=== PATIENT | male | born 1965 | race Caucasian/White ===

== ENCOUNTER 2021-11-08 12:54 | Emergency (ER) | payer MEDICARE, SELFPAY ==
[2021-11-08 12:59] VITALS: BP 156/90; PULSE 89; RESP 12; TEMP 37.2; O2SAT 97; BMI 28.8
--- NOTE | 2021-11-08 13:08 | RAD_ITS ---
STUDY: X-RAY CHEST REASON FOR EXAM: Male, 56 years old. Dizziness TECHNIQUE: Single AP portable view of the chest. COMPARISON: None. FINDINGS: EKG electrodes are seen. The lungs are clear and expanded. There is no demonstrated pleural abnormality. Sternal cerclage wires and vascular clips are present from a prior sternotomy and coronary artery bypass graft procedure (CABG). Normal mediastinum and sunny. Normal visualized pulmonary arteries. There is atherosclerotic calcification of the aortic arch with tortuosity. Prior cervical fusion. Normal visualized ribs, clavicles, and shoulders. There is no demonstrated abnormality of the visualized soft tissue structures of the upper abdomen. RAD/Chest 1 View (Portable) IMPRESSION: No acute abnormality is seen. Electronically Signed: Renny Wallace MD at 13:32 EST , Service support ,
--- NOTE | 2021-11-08 13:08 | CT_ITS ---
STUDY: CT BRAIN WITHOUT CONTRAST REASON FOR EXAM: Male, 56 years old. Dizziness RADIATION DOSAGE (If Supplied By Facility): CTDIvol = ( 44.99 ) mGy, DLP = ( 812.98 ) mGycm TECHNIQUE: Transaxial CT imaging of the brain was performed without administration of intravenous contrast material. Individualized dose optimization techniques were used for this CT. COMPARISON: No relevant priors. FINDINGS: Normal soft tissue structures. Normal calvarium. There is mild cerebral atrophy with widening of the extra-axial spaces and ventricular dilatation. Normal white matter tracts of the cerebral hemispheres. Normal basal ganglia and thalami. Normal brainstem. Normal cerebellum. There is no intracranial hemorrhage. There are no findings of an acute ischemic infarction. Atherosclerotic calcification of the cavernous portions of the internal carotid arteries bilaterally. Normal visualized paranasal sinuses. CT/Brain/Head without Contrast IMPRESSION: Chronic involutional changes of the brain. Electronically Signed: Renny Wallace MD at 13:47 EST , Service support ,
--- NOTE | 2021-11-08 13:08 | EKG12_ITS ---
Test Reason : DIZZINESS Blood Pressure : / mmHG Vent. Rate : 089 BPM Atrial Rate : 089 BPM P-R Int : 148 ms QRS Dur : 084 ms QT Int : 400 ms P-R-T Axes : 002 -23 051 degrees QTc Int : 486 ms Normal sinus rhythm Nonspecific ST abnormality Prolonged QT Septal SD, age undetermined, cannot be excluded Abnormal ECG Confirmed by TRISTON MONTILLA, OSVALDO ([id number]), editorial manager CARISSA MURDOCK ([id number]) on 11/09/2021 10:49:53 AM Referred By: SHYAM Confirmed By:OSVALDO GOLDSTEIN MD
--- NOTE | 2021-11-08 13:14 | NURSING ---
NO OLD EKGS
--- NOTE | 2021-11-08 13:31 | EDS_ITS ---
HPI History of Present Illness Chief Complaint: Dizziness Narrative Narrative: Patient presenting with nausea/vomiting, lightheadedness. Patient states that last week his INR was 8 and he has been holding his Coumadin and went to get it rechecked and while he was waiting he became lightheaded and diaphoretic and felt like he was going to faint. He states he felt confused for a couple of seconds. He denies any chest pain. Patient does admit to elevated blood pressures recently, also he states that he has been drinking about a half 1/5-1/5 of [place] daily since his father about 5 months ago. He believes this might be affecting his INR. He denies a headache or visual complaints currently. He states that he was trying to drink water today after tying well last night and has been vomiting all this up. He even tried to eat toast and vomited this up. Patient is not had fever, chills, cough. He states that currently he feels well. PFSH PFSH Medical History Alcohol abuse Anxiety Back disorder Depression GERD (gastroesophageal reflux disease) Herniated intervertebral disc of lumbar spine Hypertension Smoker Home Medications allopurinol 100 mg PO DAILY 11/08/21 [History Last Taken Unknown] atenolol 50 mg PO DAILY 11/08/21 [History Last Taken Unknown] atorvastatin 10 mg PO DAILY 11/08/21 [History Last Taken Unknown] hydrocodone-acetaminophen 1 tab PO Q6H PRN PRN 11/08/21 [History Last Taken Unknown] hydroxyzine HCl 50 mg PO DAILY 11/08/21 [History Last Taken Unknown] lamotrigine 25 mg PO DAILY 11/08/21 [History Last Taken Unknown] lisinopril 40 mg PO DAILY 11/08/21 [History Last Taken Unknown] pantoprazole 40 mg PO DAILY 11/08/21 [History Last Taken Unknown] trazodone 100 mg PO QHS 11/08/21 [History Last Taken Unknown] warfarin 2 mg PO 11/08/21 [History Last Taken Unknown] warfarin 4 mg PO 11/08/21 [History Last Taken Unknown] Allergy/AdvReac Type Severity Reaction Status Date / Time No Known Allergies Allergy Verified 11/08/21 13:13 Surgical History History of tonsillectomy and adenoidectomy Mechanical heart valve present Social History Smoking Status: Current every day smoker tobacco type: cigarettes ROS ROS ED Constitutional Constitutional ED: Reports sweats; Denies chills or fever(s) Eyes Eyes: Denies blurry vision or diplopia ENT ENT ED: Denies rhinorrhea or sore throat Cardiovascular Cardiovascular: Reports palpitations; Denies chest pain Respiratory/Chest Respiratory/Chest: Denies cough or dyspnea Gastrointestinal Gastrointestinal: Reports nausea and vomiting; Denies abdominal pain Genitourinary Genitourinary ED: Denies dysuria or hematuria Musculoskeletal Musculoskeletal: Denies arthralgias or myalgias Integumentary Denies rash Neurologic Neurologic: Denies headache(s) or paresthesias Psychiatric Psychiatric: Denies anxiety, depression, suicidal ideation or suicidal thoughts EXAM Physical Exam Const Vital Signs: 11/08/21 12:59 11/08/21 13:08 11/08/21 14:26 Temperature 98.9 F Temperature Source Oral Pulse Rate 89 Pulse Rate [Lying] 90 Pulse Rate [Sitting] 90 Respiratory Rate 12 Respiratory Effort Normal Non-Labored Blood Pressure 156/90 H Blood Pressure [Lying] 153/110 H Blood Pressure [Sitting] 174/106 H Blood Pressure [Standing] 164/104 H Blood Pressure Mean 112 Blood Pressure Mean [Lying] 124 Blood Pressure Mean [Sitting] 128 Blood Pressure Mean [Standing] 124 Pulse Ox 97 Oxygen Delivery Method Room Air 11/08/21 15:50 Temperature Temperature Source Pulse Rate 82 Pulse Rate [Lying] Pulse Rate [Sitting] Respiratory Rate 16 Respiratory Effort Blood Pressure 145/75 H Blood Pressure [Lying] Blood Pressure [Sitting] Blood Pressure [Standing] Blood Pressure Mean 98 Blood Pressure Mean [Lying] Blood Pressure Mean [Sitting] Blood Pressure Mean [Standing] Pulse Ox 96 Oxygen Delivery Method Room Air Positive well nourished General Appearance ED: NAD; Negative for pallor HEENT Reports moist mucous membranes Negative for trauma Eyes PERRL and EOMs intact bilaterally General Eye ED: Negative for pale conjunctiva or scleral icterus Resp normal respiratory effort and clear to auscultation bilaterally Cardio regular rate and regular rhythm GI normal to inspection, nondistended, normoactive bowel sounds Extremity normal to inspection General Extremety ED: Negative for edema or tenderness General Extremity: Negative for edema Neuro oriented x3 and CN's II-XII intact bilaterally Sensorium / Orientation: alert Skin General Skin Exam: Negative for jaundice or pallor MDM MDM MDM Narrative Medical decision making narrative: Patient presenting with nausea, vomiting, lightheadedness. He does admit to every day drinking of at least a half of the fifth a day. He states he really tied one on last night the might just be hung over. Has been vomiting today every time he tries to eat or drink. He states he has been drinking alcohol for about 5 months since his father . Because he was feeling lightheaded and slightly confused I did obtain blood work and imaging. His INR is also been elevated up to 8 in the last week. His INR today is subtherapeutic at 1.4. CT of his brain is negative for acute intracranial findings. EKG on my interpretation shows a normal sinus rhythm with a ventricular rate of 89/min with nonspecific ST-T wave changes. Chest x- ray my interpretation is no acute cardiopulmonary process. CBC is within normal limits. CMP shows he has a slight elevation in total bilirubin at 1.1, and his AST is 50 otherwise his renal function electrolytes are normal. High- sensitivity troponin is 6. Alcohol level is normal. Ammonia level is normal. Patient did experience some nausea while he was here and he was given Zofran. His work-up is ultimately normal with exception of a low INR at 1.4. He is counseled to take his Coumadin level and follow-up with his PCP to ensure it stays therapeutic. I will write him a prescription for nausea medicine for h ome. Impression: 1. Lightheadedness 2. Near syncope Lab Data Labs: Laboratory Results - last 24 hr 11/08/21 11/08/21 11/08/21 13:20 13:20 13:20 WBC 9.4 RBC 5.07 Hgb 15.3 Hct 42.9 MCV 84.6 MCH 30.2 MCHC 35.7 RDW Std Deviation 41.2 RDW Coeff of Nehemias 13.4 Plt Count 200 MPV 9.1 Immature Gran % (Auto) 0.400 Neut % (Auto) 78.6 H Lymph % (Auto) 15.4 L [place] % (Auto) 5.2 Eos % (Auto) 0.1 Baso % (Auto) 0.3 Absolute Neuts (auto) 7.4 Absolute Lymphs (auto) 1.45 Nucleated RBC % 0 PT 16.8 H INR 1.4 Sodium 139 Potassium 3.8 Chloride 103 Carbon Dioxide 28.0 Anion Gap 8 BUN 13 Creatinine 0.90 Estim Creat Clear Calc 89.72 Est GFR (MDRD) Af Amer 113 Est GFR (MDRD) Non-Af 94 BUN/Creatinine Ratio 14.5 Glucose 144 H Calcium 9.6 Total Bilirubin 1.10 H AST 50 H ALT 55 Alkaline Phosphatase 102 Ammonia Troponin I High Sens 6 Total Protein 7.5 Albumin 4.1 Globulin 3.4 Albumin/Globulin Ratio 1.2 Lipase 128 Urine Color Urine Clarity Urine pH Ur Specific [place] Urine Protein Urine Glucose (UA) Urine Ketones Urine Occult Blood Urine Nitrite Urine Bilirubin Urine Urobilinogen Ur Leukocyte Esterase Urine RBC Urine WBC Ur Squamous Epith Cells Urine Bacteria Urine Mucus Urine Opiates Screen Urine Methadone Screen Ur Barbiturates Screen Ur Phencyclidine Scrn Ur Amphetamines Screen U Methamphetamin-MDMA U Benzodiazepines Scrn Urine Cocaine Screen U Cannabinoids Screen Ur Drug Screen Comment Ethyl Alcohol 11/08/21 11/08/21 11/08/21 13:20 13:20 14:38 WBC RBC Hgb Hct MCV MCH MCHC RDW Std Deviation RDW Coeff of Nehemias Plt Count MPV Immature Gran % (Auto) Neut % (Auto) Lymph % (Auto) [place] % (Auto) Eos % (Auto) Baso % (Auto) Absolute Neuts (auto) Absolute Lymphs (auto) Nucleated RBC % PT INR Sodium Potassium Chloride Carbon Dioxide Anion Gap BUN Creatinine Estim Creat Clear Calc Est GFR (MDRD) Af Amer Est GFR (MDRD) Non-Af BUN/Creatinine Ratio Glucose Calcium Total Bilirubin AST ALT Alkaline Phosphatase Ammonia 18.0 Troponin I High Sens Total Protein Albumin Globulin Albumin/Globulin Ratio Lipase Urine Color Urine Clarity Urine pH Ur Specific [place] Urine Protein Urine Glucose (UA) Urine Ketones Urine Occult Blood Urine Nitrite Urine Bilirubin Urine Urobilinogen Ur Leukocyte Esterase Urine RBC Urine WBC Ur Squamous Epith Cells Urine Bacteria Urine Mucus Urine Opiates Screen POSITIVE H Urine Methadone Screen NEGATIVE Ur Barbiturates Screen NEGATIVE Ur Phencyclidine Scrn NEGATIVE Ur Amphetamines Screen NEGATIVE U Methamphetamin-MDMA POSITIVE H U Benzodiazepines Scrn NEGATIVE Urine Cocaine Screen NEGATIVE U Cannabinoids Screen NEGATIVE Ur Drug Screen Comment Ethyl Alcohol 10.0 11/08/21 14:38 WBC RBC Hgb Hct MCV MCH MCHC RDW Std Deviation RDW Coeff of Nehemias Plt Count MPV Immature Gran % (Auto) Neut % (Auto) Lymph % (Auto) [place] % (Auto) Eos % (Auto) Baso % (Auto) Absolute Neuts (auto) Absolute Lymphs (auto) Nucleated RBC % PT INR Sodium Potassium Chloride Carbon Dioxide Anion Gap BUN Creatinine Estim Creat Clear Calc Est GFR (MDRD) Af Amer Est GFR (MDRD) Non-Af BUN/Creatinine Ratio Glucose Calcium Total Bilirubin AST ALT Alkaline Phosphatase Ammonia Troponin I High Sens Total Protein Albumin Globulin Albumin/Globulin Ratio Lipase Urine Color Yellow Urine Clarity Clear Urine pH 7.0 Ur Specific [place] 1.010 Urine Protein 100 H Urine Glucose (UA) Normal Urine Ketones 50 H Urine Occult Blood Negative Urine Nitrite Negative Urine Bilirubin 1 H Urine Urobilinogen 4 H Ur Leukocyte Esterase 100 H Urine RBC 0 SEEN Urine WBC 0 SEEN Ur Squamous Epith Cells 0 SEEN Urine Bacteria 0 SEEN Urine Mucus 0 SEEN Urine Opiates Screen Urine Methadone Screen Ur Barbiturates Screen Ur Phencyclidine Scrn Ur Amphetamines Screen U Methamphetamin-MDMA U Benzodiazepines Scrn Urine Cocaine Screen U Cannabinoids Screen Ur Drug Screen Comment Ethyl Alcohol Radiography Diagnostic Testing: Clinical Impression(s) from Imaging Studies Brain CT 11/08/21 13:08 IMPRESSION: Chronic involutional changes of the brain. Electronically Signed: Renny Wallace MD at 13:47 EST , Service support , Chest X-Ray 11/08/21 13:08 IMPRESSION: No acute abnormality is seen. Electronically Signed: Renny Wallace MD at 13:32 EST , Service support , Discharge Plan Triage Chief Complaint: Dizziness ED Provider: Jae Burdick Dx/Rx/DC Orders Instructions: ED Near-Fainting, Uncertain Cause Prescriptions: No Action atorvastatin 10 mg tablet 10 mg PO DAILY RF: 0 hydrocodone-acetaminophen 5-325 mg tablet 1 tab PO Q6H PRN PRN (Reason: Pain) RF: 0 hydroxyzine HCl 50 mg tablet 50 mg PO DAILY RF: 0 allopurinol 100 mg tablet 100 mg PO DAILY RF: 0 warfarin 4 mg tablet 4 mg PO RF: 0 lamotrigine 25 mg tablet 25 mg PO DAILY RF: 0 trazodone 100 mg tablet 100 mg PO QHS RF: 0 pantoprazole 40 mg tablet,delayed release (DR/EC) 40 mg PO DAILY RF: 0 warfarin 2 mg tablet 2 mg PO RF: 0 lisinopril 40 mg tablet 40 mg PO DAILY RF: 0 atenolol 50 mg tablet 50 mg PO DAILY RF: 0 Primary Care Provider: Nicho Waldron Referrals: Nicho Waldron DO [Primary Care Provider] - Activity Restrictions/Additional Instructions: Your INR is 1.4 today. You need to continue to take your Coumadin as prescribed. He should keep monitoring this to make sure is within normal limits. Follow-up with your primary care doctor to make this appointment. Disposition Disposition: Home, Self Care
[2021-11-08 13:34] LABS: Absolute Lymphocyte Count 1.45 X10^3/uL (0.83-4.51); Absolute Neutrophil Count 7.4 X10^3/uL (2.0-7.7); Basophil# 0.03 X10^3/uL; Basophil% 0.3 % (0-1); Eosinophil# 0.01 X10^3/uL; Eosinophils% 0.1 % (0-5); Hematocrit 42.9 % (40-54); Hemoglobin 15.3 g/dL (13.0-16.5); Lymphocyte # 1.45 X10^3/ul (0.83-4.51); Lymphocyte % 15.4 % (19-41); Mean Corp Hgb Conc 35.7 g/dL (32-36); Mean Corpuscular Hgb 30.2 pg (27.0-32.0); Mean Corpuscular Volume 84.6 fL (80-94); Mean Platelet Vol. 9.1 fl (6.2-12.0); Monocyte# 0.49 X10^3/uL; Monocyte% 5.2 % (0-10); NRBC Flagged by Analyzer 0 % (0-5); Neutrophil # 7.42 X10^3/uL (2.7-7.7); Neutrophil % 78.6 % (47-70); Platelet Count 200 K/mm3 (150-450); RBC Distribution Width CV 13.4 % (11.6-14.6); RBC Distribution Width SD 41.2 fl (35.1-43.9); Red Blood Count 5.07 M/mm3 (4.6-6.2); White Blood Count 9.4 K/mm3 (4.4-11.0)
[2021-11-08 13:46] LABS: International Normalized Ratio 1.4; Prothrombin Time (Protime)PT. 16.8 SECONDS (11.7-14.9)
[2021-11-08 13:52] LABS: ALB/GLOB Ratio 1.2 RATIO (0.9-2.4); AST(SGOT) 50 U/L (15-37); Alanine Aminotransfer ALT/SGPT 55 U/L (16-61); Albumin, Serum 4.1 g/dL (3.2-5.0); Alkaline Phosphatase 102 U/L (45-117); Anion Gap 8 (5-15); BUN 13 mg/dL (7-18); BUN/Creat Ratio 14.5 RATIO (10-20); Calcium,Total 9.6 mg/dL (8.5-10.1); Chloride 103 mmol/L (98-107); EST Glomerular Filtration Rate 94 mL/min (>60); Est Glom Filt Rate - Afr Amer 113 mL/min (>60); Estimated Creatinine Clearance 89.72 ml/min; Globulin 3.4 g/dL (2.2-4.2); Glucose 144 mg/dL (74-106); Lipase 128 U/L (73-393); Potassium 3.8 mmol/L (3.5-5.1); Protein, Total 7.5 g/dL (6.4-8.2); Sodium Level 139 mmol/L (136-145); Troponin-I HS 6 pg/mL (3.0-78.0)
[2021-11-08 14:26] VITALS: BP 153/110; BP 164/104; BP 174/106; PULSE 90
[2021-11-08 14:42] LABS: Bacteria 0 SEEN /hpf (None Seen); Mucous, Urine 0 SEEN /hpf (<or=2+); Red Blood Cells-Urine 0 SEEN /hpf (0-5); Squamous Epithelial Cells - UA 0 SEEN /hpf (0-5); White Blood Cells 0 SEEN /hpf (0-5)
[2021-11-08 14:46] LABS: Color, Urine Yellow (Yellow); Glucose, Dipstick Normal (Normal); Ketone-Dipstick 50 mg/dl (Negative); Leukocyte Esterase-Dipstick 100 /ul (Negative); Nitrite-Dipstick Negative (Negative); Occult Blood-Urine Negative /ul (Negative); Protein-Dipstick 100 mg/dl (Negative); Urine Clarity Clear (Clear); Urine Urobilinogen 4 mg/dl (Normal)
[2021-11-08 14:52] LABS: Urine Bilirubin Dipstick 1 mg/dL (Negative)
[2021-11-08 15:01] LABS: Amphetamine Urine VISTA NEGATIVE (<1000 ng/mL); Barbiturate Urine VISTA NEGATIVE (< 200 ng/mL); Benzodiazepine Urine VISTA NEGATIVE (< 200 ng/mL); Cocaine Urine VISTA NEGATIVE (< 300 ng/mL); Ecstacy Urine VISTA POSITIVE (< 500 ng/mL); Methadone Urine VISTA NEGATIVE (< 300 ng/mL); PCP Urine VISTA NEGATIVE (< 25 ng/mL); THC Urine VISTA NEGATIVE (< 50 ng/mL); Vista UDS pH Range 7
[2021-11-08 15:50] VITALS: BP 145/75; PULSE 82; RESP 16; O2SAT 96
[2021-11-08] MEDS: Ondansetron 4 MG/2 ML Vial IV (15:51)
[2021-11-08 16:50] VITALS: BP 136/82; PULSE 83; RESP 18; TEMP 37.2; O2SAT 97
== END 2021-11-08 16:52 | disposition home or self-care (01) ==
PROVIDERS: Emergency Provider Student in an Organized Health Care Education/Training Program; PCP Family Medicine
DX: R42 Dizziness and giddiness (principal); R55 Syncope and collapse; F17.210 Nicotine dependence, cigarettes, uncomplicated; I10 Essential (primary) hypertension; F32.A Depression, unspecified; F41.9 Anxiety disorder, unspecified; K21.9 Gastro-esophageal reflux disease without esophagitis; Z79.899 Other long term (current) drug therapy
CPT/HCPCS: 70450; 71045; 80053; 80307; 81001; 82077; 82140; 83690; 84484; 85025; 85610; 93005; 96374; 99285; A4216; J2405

== ENCOUNTER 2022-01-01 09:09 | Emergency (ER) | payer MEDICARE, SELFPAY ==
[2022-01-01 09:10] VITALS: BP 154/105; PULSE 87; RESP 18; TEMP 36.6; O2SAT 100; BMI 30.5
--- NOTE | 2022-01-01 09:22 | EX.ED.DYSGE1 ---
HPI History of Present Illness Chief Complaint: Abd Pain Informant: patient Onset/Context/Timing Onset: Weeks (1 week) Context: Gradual Onset Timing: Waxes and wanes Current Severity: Mild Maximum Severity: Moderate Narrative Narrative: Patient presents with pain in the left upper quadrant of his abdomen for the last week. He states pain is worse with a deep breath. He has no nausea or vomiting. He is having normal bowel movements. No fever or chills. He does report having COVID approximately 3 weeks ago. He is currently on Coumadin secondary to a mechanical valve replacement. PFSH PFSH Medical History Alcohol abuse Anxiety Back disorder Depression GERD (gastroesophageal reflux disease) Herniated intervertebral disc of lumbar spine Hypertension Smoker Home Medications allopurinol 100 mg PO DAILY 11/08/21 [History Last Taken Unknown] atenolol 50 mg PO DAILY 11/08/21 [History Last Taken Unknown] atorvastatin 10 mg PO DAILY 11/08/21 [History Last Taken Unknown] hydrocodone-acetaminophen 1 tab PO Q6H PRN PRN 11/08/21 [History Last Taken Unknown] hydroxyzine HCl 50 mg PO DAILY 11/08/21 [History Last Taken Unknown] lamotrigine 25 mg PO DAILY 11/08/21 [History Last Taken Unknown] lisinopril 40 mg PO DAILY 11/08/21 [History Last Taken Unknown] pantoprazole 40 mg PO DAILY 11/08/21 [History Last Taken Unknown] trazodone 100 mg PO QHS 11/08/21 [History Last Taken Unknown] warfarin 2 mg PO DAILY 11/08/21 [History Last Taken Unknown] warfarin 4 mg PO DAILY 11/08/21 [History Last Taken Unknown] Allergy/AdvReac Type Severity Reaction Status Date / Time No Known Allergies Allergy Verified 01/01/22 09:12 Surgical History History of tonsillectomy and adenoidectomy Mechanical heart valve present Social History Smoking Status: Current every day smoker tobacco type: cigarettes ROS ROS ED Constitutional Constitutional ED: Denies chills or fever(s) Eyes Eyes: Denies change in vision ENT ENT ED: Denies sore throat Cardiovascular Cardiovascular: Denies chest pain Respiratory/Chest Respiratory/Chest: Denies cough or dyspnea Gastrointestinal Gastrointestinal: Reports abdominal pain; Denies diarrhea, nausea or vomiting Genitourinary Genitourinary ED: Denies dysuria or hematuria Musculoskeletal Musculoskeletal: Denies back pain Integumentary Denies rash Neurologic Neurologic: Denies headache(s) or weakness Allergic/Immunologic Allergic/Immunologic ED: Denies urticaria EXAM Physical Exam Const Vital Signs: 01/01/22 09:10 Temperature 98 F Temperature Source Temporal Pulse Rate 87 Respiratory Rate 18 Blood Pressure 154/105 H Blood Pressure Mean 121 Pulse Ox 100 Oxygen Delivery Method Room Air Positive well nourished and well developed General Appearance ED: well developed HEENT Reports moist mucous membranes Eyes PERRL and EOMs intact bilaterally Neck supple Chest Wall inspection of chest normal Chest Narrative: Mild tenderness along the left lateral lower ribs. Resp normal respiratory effort and clear to auscultation bilaterally Cardio regular rate and regular rhythm GI normal to inspection, nondistended, normoactive bowel sounds and non-tender Palpation: soft Extremity normal to inspection Neuro oriented x3 and no sensory deficits noted Sensorium / Orientation: alert Motor Exam: strength 5/5 throughout Psych mental status grossly normal Skin no rashes or lesions noted MDM MDM MDM Narrative Medical decision making narrative: Lab work obtained. Chest x-ray ordered. Lab Data Attestation: I reviewed the patient's lab results. Labs: Laboratory Results - last 24 hr 01/01/22 01/01/22 01/01/22 09:45 09:45 09:45 WBC 4.3 L RBC 4.66 Hgb 14.4 Hct 39.7 L MCV 85.2 MCH 30.9 MCHC 36.3 H RDW Std Deviation 44.8 H RDW Coeff of Nehemias 14.6 Plt Count 170 MPV 9.6 Immature Gran % (Auto) 0.500 Neut % (Auto) 45.5 L Lymph % (Auto) 45.5 H [place] % (Auto) 7.6 Eos % (Auto) 0.2 Baso % (Auto) 0.7 Absolute Neuts (auto) 2.0 Absolute Lymphs (auto) 1.97 Nucleated RBC % 0 PT 32.3 H INR 3.2 D-Dimer Quant (PE/DVT) 1.84 H* Sodium 134 L Potassium 3.9 Chloride 103 Carbon Dioxide 26.0 Anion Gap 5 BUN 11 Creatinine 0.94 Estim Creat Clear Calc 83.02 Est GFR (MDRD) Af Amer 107 Est GFR (MDRD) Non-Af 88 BUN/Creatinine Ratio 11.7 Glucose 175 H Calcium 8.8 Total Bilirubin 1.00 Direct Bilirubin 0.28 AST 24 ALT 22 Alkaline Phosphatase 92 Total Protein 7.0 Albumin 3.3 Globulin 3.7 Lipase 137 Radiography Chest X-Ray - ED: 1 View, Read by ED Physician, Normal, Heart, Lungs and Mediastinum Diagnostic Testing: Clinical Impression(s) from Imaging Studies Chest X-Ray 01/01/22 10:00 IMPRESSION: Status post prior mitral valve replacement. The lungs are clear. Electronically Signed: Renny Wallace MD at 10:16 EST , Chest CTA 01/01/22 10:33 IMPRESSION: No evidence of pulmonary embolism. Mild increased linear markings at the lung bases suggests mild degree of bleeding atelectasis and/or scarring. Electronically Signed: Renny Wallace MD at 11:14 EST , Treatment and Re-Evaluation Comments:: Patient's lab work largely unremarkable. INR is therapeutic at 3.2. D-dimer was elevated at 1.84. CTA of the chest reveals no acute findings. Patient reassured with negative work-up here. He is tender along the border of cartilage and bone in the lower ribs. He may does have inflammation in this area. He will continue to monitor his symptoms. Return instructions provided. Discharge Plan Triage Chief Complaint: Abd Pain ED Provider: Sandrita Amaya Dx/Rx/DC Orders Clinical Impression: Abdominal pain Instructions: ED Abdominal Pain Unkn Cause Male... Prescriptions: No Action atorvastatin 10 mg tablet 10 mg PO DAILY RF: 0 hydrocodone-acetaminophen 5-325 mg tablet 1 tab PO Q6H PRN PRN (Reason: Pain) RF: 0 hydroxyzine HCl 50 mg tablet 50 mg PO DAILY RF: 0 allopurinol 100 mg tablet 100 mg PO DAILY RF: 0 warfarin 4 mg tablet 4 mg PO DAILY RF: 0 lamotrigine 25 mg tablet 25 mg PO DAILY RF: 0 trazodone 100 mg tablet 100 mg PO QHS RF: 0 pantoprazole 40 mg tablet,delayed release (DR/EC) 40 mg PO DAILY RF: 0 warfarin 2 mg tablet 2 mg PO DAILY RF: 0 lisinopril 40 mg tablet 40 mg PO DAILY RF: 0 atenolol 50 mg tablet 50 mg PO DAILY RF: 0 Primary Care Provider: Nicho Waldron Referrals: Nicho Waldron DO [Primary Care Provider] - 1 Week if not improving Disposition Disposition: Home, Self Care
[2022-01-01 09:57] LABS: Absolute Lymphocyte Count 1.97 X10^3/uL (0.83-4.51); Basophil# 0.03 X10^3/uL; Basophil% 0.7 % (0-1); Eosinophil# 0.01 X10^3/uL; Eosinophils% 0.2 % (0-5); Hematocrit 39.7 % (40-54); Hemoglobin 14.4 g/dL (13.0-16.5); Lymphocyte # 1.97 X10^3/ul (0.83-4.51); Lymphocyte % 45.5 % (19-41); Mean Corp Hgb Conc 36.3 g/dL (32-36); Mean Corpuscular Hgb 30.9 pg (27.0-32.0); Mean Corpuscular Volume 85.2 fL (80-94); Mean Platelet Vol. 9.6 fl (6.2-12.0); Monocyte# 0.33 X10^3/uL; Monocyte% 7.6 % (0-10); NRBC Flagged by Analyzer 0 % (0-5); Neutrophil # 1.97 X10^3/uL (2.7-7.7); Neutrophil % 45.5 % (47-70); Platelet Count 170 K/mm3 (150-450); RBC Distribution Width CV 14.6 % (11.6-14.6); RBC Distribution Width SD 44.8 fl (35.1-43.9); Red Blood Count 4.66 M/mm3 (4.6-6.2); White Blood Count 4.3 K/mm3 (4.4-11.0)
--- NOTE | 2022-01-01 10:00 | RAD_ITS ---
STUDY: X-RAY CHEST REASON FOR EXAM: Male, 56 years old. Chest pain. TECHNIQUE: Single AP portable view of the chest. COMPARISON: No prior study is available for comparison at this time. FINDINGS: The lungs are clear and expanded. There is no demonstrated pleural abnormality. Sternal cerclage wires are present from a prior sternotomy. The patient is status post mitral valve replacement. Normal mediastinum and sunny. Normal visualized pulmonary arteries. Normal visualized aortic arch and descending thoracic aorta. Normal visualized thoracic spine. Prior lower cervical fusion. There is no demonstrated abnormality of the visualized soft tissue structures of the upper abdomen. RAD/Chest 1 View (Portable) IMPRESSION: Status post prior mitral valve replacement. The lungs are clear. Electronically Signed: Renny Wallace MD at 10:16 EST ,
[2022-01-01 10:09] LABS: International Normalized Ratio 3.2; Prothrombin Time (Protime)PT. 32.3 SECONDS (11.7-14.9)
[2022-01-01 10:17] LABS: AST(SGOT) 24 U/L (15-37); Alanine Aminotransfer ALT/SGPT 22 U/L (16-61); Albumin, Serum 3.3 g/dL (3.2-5.0); Alkaline Phosphatase 92 U/L (45-117); Anion Gap 5 (5-15); BUN 11 mg/dL (7-18); BUN/Creat Ratio 11.7 RATIO (10-20); Bilirubin, Direct 0.28 mg/dL (0.00-0.30); Calcium,Total 8.8 mg/dL (8.5-10.1); Chloride 103 mmol/L (98-107); Creatinine, Serum 0.94 mg/dL (0.70-1.30); EST Glomerular Filtration Rate 88 mL/min (>60); Est Glom Filt Rate - Afr Amer 107 mL/min (>60); Estimated Creatinine Clearance 83.02 ml/min; Globulin 3.7 g/dL (2.2-4.2); Glucose 175 mg/dL (74-106); Lipase 137 U/L (73-393); Potassium 3.9 mmol/L (3.5-5.1); Sodium Level 134 mmol/L (136-145)
[2022-01-01 10:29] LABS: D-Dimer Quantitative (DVT/PE) 1.84 FEU/ug/m (0.27-0.49)
--- NOTE | 2022-01-01 10:33 | CT_ITS ---
STUDY: CTA CHEST REASON FOR EXAM: Male, 56 years old. Shortness of breath. Possible pulmonary embolism. RADIATION DOSAGE (If Supplied By Facility): CTDIvol = ( 13.26 ) mGy, DLP = ( 423.27 ) mGycm TECHNIQUE: The examination was performed with the intravenous administration of IV 100mL [id number]-[id number]. Post-processing of the angiographic images was performed, with multiplanar reformation and 3D reconstruction. Individualized dose optimization techniques were used for this CT. COMPARISON: None. FINDINGS: Normal enhancement of the main pulmonary artery and right and left pulmonary arteries. Normal enhancement of the bilateral peripheral pulmonary arteries. There is no demonstrated pulmonary embolism. There is atherosclerotic calcification of the aortic arch with tortuosity. There is no demonstrated aortic dissection. Sternal cerclage wires are present from a prior sternotomy. Status post aortic valve replacement. Normal mediastinum. Normal hilar regions. Normal visualized trachea and bronchi. The lungs are well expanded. Mild increased linear markings at the lung bases. This may represent either linear atelectasis and/or scarring. Normal pleura. Normal chest wall structures. There are mild degenerative changes of thoracic spine. Mild splenomegaly. CT/CTA Chest W/WO Contrast IMPRESSION: No evidence of pulmonary embolism. Mild increased linear markings at the lung bases suggests mild degree of bleeding atelectasis and/or scarring. Electronically Signed: Renny Wallace MD at 11:14 EST ,
== END 2022-01-01 12:21 | disposition home or self-care (01) ==
PROVIDERS: Emergency Provider Emergency Medicine; PCP Family Medicine; Visit Provider Emergency Medicine
DX: R10.12 Left upper quadrant pain (principal); I10 Essential (primary) hypertension; F17.210 Nicotine dependence, cigarettes, uncomplicated; K21.9 Gastro-esophageal reflux disease without esophagitis; F41.9 Anxiety disorder, unspecified; Z79.01 Long term (current) use of anticoagulants; Z79.899 Other long term (current) drug therapy
CPT/HCPCS: 71045; 71275; 80048; 80076; 83690; 85025; 85379; 85610; 99283; Q9967; A4216

== ENCOUNTER 2022-02-18 08:25 | Outpatient (CLI) | payer MEDICARE, SELFPAY | END 2022-02-18 23:59 | disposition home or self-care (01) | LOC: PSN 08:26 | PROVIDERS: PCP Internal Medicine; Referring Provider Internal Medicine Cardiovascular Disease; Visit Provider Internal Medicine Cardiovascular Disease | DX: E78.2 Mixed hyperlipidemia (principal); I10 Essential (primary) hypertension; R00.2 Palpitations; R06.00 Dyspnea, unspecified; Z79.01 Long term (current) use of anticoagulants; Z95.2 Presence of prosthetic heart valve; Z87.74 Personal history of (corrected) congenital malformations of heart and circulatory system | CPT/HCPCS: 93225; 93226 ==

== ENCOUNTER 2022-02-18 09:03 | Outpatient (RCR) | payer MEDICARE, SELFPAY ==
[2022-02-08 10:21] LABS: Prothrombin Time Fingerstick 23.6 SEC (11.7-14.9)
[2022-02-18 09:16] LABS: INR Fingerstick 3.6; Prothrombin Time Fingerstick 40.8 SEC (11.7-14.9)
== END 2022-02-21 18:00 | disposition home or self-care (01) ==
LOC: MTLAB 09:03
PROVIDERS: Referring Provider Internal Medicine Cardiovascular Disease; Visit Provider Internal Medicine Cardiovascular Disease
DX: Z95.2 Presence of prosthetic heart valve (principal); Z79.01 Long term (current) use of anticoagulants
CPT/HCPCS: 36416; 85610

== ENCOUNTER 2022-02-21 15:23 | Emergency (ER) | payer MEDICARE, SELFPAY ==
[2022-02-21 15:24] VITALS: BP 153/104; PULSE 85; RESP 14; TEMP 36.3; O2SAT 99; BMI 28.1
--- NOTE | 2022-02-21 15:54 | ED.RN ---
PT WANTS TO LEAVE. RN INFORMED HIM HE IS TRIAGED AND IN LINE TO BE TAKEN BACK TO ED. PT STATES HIS DR ALREADY SENT EVERYTHING OVER. RN CHECKED WITH REGISTRATION NO ORDERS FOR DVT RELATED VISIT. RN EXPLAINED TO PT THAT THIS CAN BE CONFUSING AND DR HIGUERA DIDN'T ORDER ANY TEST. PT STATES HE STILL WANTS TO LEAVE AND WILL CALL DR. HIGUERA TO SEE IF HE CAN ORDER TESTING REQURIED.
== END 2022-02-21 17:55 | disposition left against medical advice (07) ==
LOC: ED 18:09
PROVIDERS: PCP Internal Medicine
DX: Z53.21 Procedure and treatment not carried out due to patient leaving prior to being seen by health care provider (principal)

== ENCOUNTER 2022-02-22 07:30 | Emergency (ER) | payer MEDICARE, SELFPAY ==
[2022-02-22 07:31] VITALS: BP 144/90; PULSE 97; RESP 18; TEMP 36.6; O2SAT 98; BMI 29.0
--- NOTE | 2022-02-22 08:05 | VDLE_ITS ---
Reason For Study: Pain RIGHT GSV is normal. CFV is compressible, spontaneous, phasic, competent and demonstrates normal augmentation. FV is compressible, spontaneous, phasic, competent and demonstrates normal augmentation. POP V is compressible, spontaneous, phasic, competent and demonstrates normal augmentation. T/P Trunk is compressible. PTV is compressible. RT PerV is compressible. Procedure This is a venous duplex using B-mode, color flow and spectral Doppler. Exam performed portable in ED. A preliminary report was called and/or faxed to [facility]. VL/Venous Duplex US, Unilateral Interpretation Summary There is no evidence of right lower extremity deep vein thrombosis. Right great saphenous vein appears patent and compressible segmentally. Ordering Physician: Ethan Mcneil Referring Physician: Fay Cardenas M.D. Performed By: Nicol Kiser RVT
--- NOTE | 2022-02-22 09:27 | ED.VIS.LOWEX ---
HPI History of Present Illness Chief Complaint: Lower Extremity Injury Informant: patient Onset/Context/Timing Onset: Days (Several) Context: Gradual Onset Timing: Continuous Quality of Pain: Aching Location: Right calf Current Severity: Moderate Maximum Severity: Moderate Worsened by: Walking, moving leg Relieved by: Remaining still Associated Symptoms Associated Symptoms: Negative for Parasthesia, Weakness and Loss of Funtion Narrative Narrative: Patient is on warfarin because of a mechanical heart valve. He has developed spontaneous onset of pain in his right calf, it is swollen, he is concerned about it. He saw his doctor, he was referred to the ER for evaluation of DVT. He checked his INR 3 days ago and it was 3.7. Patient denies any numbness or weakness or chest pain, shortness of breath, palpitations, syncope or any other systemic symptoms. He states about a month ago, he fell onto his right hip and he had a very large bruise. Over the next week or 2, it started to settle down into his distal thigh and was still sore. 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 Mixed hyperlipidemia Palpitations Smoker Home Medications allopurinol 100 mg PO DAILY 11/08/21 [History Last Taken Unknown] atenolol 50 mg PO DAILY 11/08/21 [History Last Taken Unknown] atorvastatin 10 mg PO DAILY 11/08/21 [History Last Taken Unknown] hydroxyzine HCl 50 mg PO DAILY 11/08/21 [History Last Taken Unknown] lamotrigine 25 mg PO DAILY 11/08/21 [History Last Taken Unknown] lisinopril 40 mg PO DAILY 11/08/21 [History Last Taken Unknown] pantoprazole 40 mg PO DAILY 11/08/21 [History Last Taken Unknown] trazodone 100 mg PO QHS 11/08/21 [History Last Taken Unknown] warfarin 2 mg PO DAILY 11/08/21 [History Last Taken Unknown] warfarin 4 mg PO DAILY 11/08/21 [History Last Taken Unknown] cholecalciferol (vitamin D3) 125 mcg (5,000 unit) tablet 125 mcg PO DAILY 01/22/22 [History Last Taken Unknown] amlodipine 2.5 mg tablet 5 mg PO DAILY #0 tab 02/15/22 [Rx Last Taken Unknown] Allergy/AdvReac Type Severity Reaction Status Date / Time No Known Allergies Allergy Verified 02/22/22 07:33 Family History Grandfather CHF (congestive heart failure) Surgical History History of mechanical aortic valve replacement (~09/26/04) History of tonsillectomy and adenoidectomy Mechanical heart valve present Social History Smoking Status: Current every day smoker tobacco type: cigarettes alcohol intake: current substance use type: does not use caffeine: Yes Type: coffee Number of servings: 6 ROS ROS ED Constitutional Constitutional ED: Denies chills or fever(s) Cardiovascular Cardiovascular: Denies chest pain, diaphoresis, dyspnea, lightheadedness or palpitations Respiratory/Chest Respiratory/Chest: Denies cough or dyspnea Musculoskeletal Musculoskeletal: Reports extremity pain; Denies neck pain Integumentary Denies Abrasions, rash or wounds Neurologic Neurologic: Denies paresthesias or weakness EXAM Physical Exam Const Vital Signs: 02/22/22 07:31 Temperature 98 F Temperature Source Temporal Pulse Rate 97 Respiratory Rate 18 Blood Pressure 144/90 H Blood Pressure Mean 108 Pulse Ox 98 Oxygen Delivery Method Room Air Positive well nourished and well developed General Appearance ED: well developed and NAD Neck full ROM and supple Back/Spine normal ROM and normal to inspection Extremity full ROM and no pedal edema Extremity Narrative: Right calf tenderness. No obvious skin discoloration. No palpable cord. Positive Aravind. Neurovascularly intact distally with good pulses. No pedal edema. All compartments soft and nondistended to any significant degree, thigh is benign and nontender. There is definitely some asymmetry with regards to his calves whereas the left 1 is normal. Neuro oriented x3, no focal motor deficits and no sensory deficits noted Sensorium / Orientation: alert Psych mental status grossly normal and thought process normal Skin no wounds Rashes: no rashes MDM MDM MDM Narrative Medical decision making narrative: Obtained an ultrasound duplex of the right lower extremity it is negative for DVT. Patient is reassured, I do suspect that he probably had a large hematoma that has settled down now into his calf from the injury several weeks ago and it should self resolve. Supportive care advised, I do not need to check his INR since he just had it 3 days ago. Discharge Plan Triage Chief Complaint: Lower Extremity Injury ED Provider: Ethan Mcneil Dx/Rx/DC Orders Clinical Impression: Right calf pain Instructions: ED Hematoma Prescriptions: No Action cholecalciferol (vitamin D3) 125 mcg (5,000 unit) tablet 125 mcg PO DAILY RF: 0 atorvastatin 10 mg tablet 10 mg PO DAILY RF: 0 hydroxyzine HCl 50 mg tablet 50 mg PO DAILY RF: 0 allopurinol 100 mg tablet 100 mg PO DAILY RF: 0 warfarin 4 mg tablet 4 mg PO DAILY RF: 0 lamotrigine 25 mg tablet 25 mg PO DAILY RF: 0 trazodone 100 mg tablet 100 mg PO QHS RF: 0 pantoprazole 40 mg tablet,delayed release (DR/EC) 40 mg PO DAILY RF: 0 warfarin 2 mg tablet 2 mg PO DAILY RF: 0 lisinopril 40 mg tablet 40 mg PO DAILY RF: 0 atenolol 50 mg tablet 50 mg PO DAILY RF: 0 amlodipine 2.5 mg tablet 5 mg PO DAILY Qty: 0 RF: 0 Primary Care Provider: Fay Cardenas Referrals: Fay Cardenas MD [Primary Care Provider] - As Needed Disposition Disposition: Home, Self Care
[2022-02-22 09:37] VITALS: BP 150/96; PULSE 90; RESP 16; O2SAT 98
== END 2022-02-22 09:38 | disposition home or self-care (01) ==
PROVIDERS: Emergency Provider Emergency Medicine; PCP Internal Medicine; Visit Provider Emergency Medicine
DX: M79.661 Pain in right lower leg (principal); I10 Essential (primary) hypertension; E78.2 Mixed hyperlipidemia; F41.9 Anxiety disorder, unspecified; F32.A Depression, unspecified; K21.9 Gastro-esophageal reflux disease without esophagitis; F17.210 Nicotine dependence, cigarettes, uncomplicated; Z95.2 Presence of prosthetic heart valve; Z79.01 Long term (current) use of anticoagulants; Z79.899 Other long term (current) drug therapy
CPT/HCPCS: 93971; 99282

== ENCOUNTER 2022-03-11 06:11 | Outpatient (CLI) | payer MEDICARE, SELFPAY ==
--- NOTE | 2022-03-11 06:15 | ECHOD_ITS ---
Reason For Study: Valve Replacement Eval Procedure This was a 2D Doppler, Color Flow transthoracic echocardiogram. The exam was of adequate technical quality. Exam performed in department. Left Ventricle Normal LV size. Left ventricular systolic function is normal. The estimated ejection fraction is 60 %. No evidence for diastolic dysfunction. No regional wall motion abnormalities noted. Right Ventricle Normal RV size. Normal systolic function. Atria Normal left atrium. Normal right atrium. No doppler evidence for ASD. Mitral Valve There is mild mitral annular calcification. The mitral annular calcification onto the base of the posterior mitral valve leaflet. Trivial mitral valve insufficiency. Tricuspid Valve Normal tricuspid valve. Mild tricuspid valve insufficiency. Right ventricular systolic pressure estimated to be 28 mmHg. Aortic Valve Stable appearing mechanical aortic valve apparatus. Pulmonic Valve The pulmonic valve is not well visualized. Great Vessels The aortic root is not well visualized. Pericardium/Pleural No pericardial effusion. MMode/2D Measurements & Calculations LVIDd: 5.0 cm IVSd: 0.93 cm LVOT diam: 2.0 cm LVIDs: 3.3 cm LVPWd: 1.1 cm LVOT area: 3.0 cm2 RVDd: 3.1 cm FS: 34.1 % LA dimension: 3.9 cm LAV(MOD-bp): 57.7 ml LA A4 area: 18.4 cm2 LAV(MOD-bp) Indexed: 29.2 ml/m2 LAV(MOD-sp2): 64.2 ml LAV(MOD-sp4): 49.2 ml RA A4 area: 12.7 cm2 Time Measurements MV dec time: 0.27 sec Doppler Measurements & Calculations MV E max champ: 82.7 cm/sec Lat Peak E' Champ: 8.8 cm/sec Med Peak E' Champ: 7.4 cm/sec MV A max champ: 108.6 cm/sec E/E' lat: 9.4 E/E' med: 11.1 MV E/A: 0.76 MV V2 max: 113.6 cm/sec MV P1/2t max champ: 105.0 cm/sec Ao V2 max: 235.5 cm/sec MV max P.2 mmHg MV P1/2t: 94.6 msec Ao max P.2 mmHg MV V2 mean: 75.9 cm/sec MV dec slope: 325.1 cm/sec2 Ao V2 mean: 149.5 cm/sec MV mean P.6 mmHg Ao mean P.5 mmHg MV V2 VTI: 32.1 cm MVA(P1/2t): 2.3 cm2 Ao V2 VTI: 41.5 cm MVA(VTI): 3.4 cm2 KYLE(I,D): 2.7 cm2 KYLE(V,D): 2.3 cm2 LV V1 max: 180.0 cm/sec SV(LVOT): 110.5 ml PA V2 max: 93.4 cm/sec LV V1 max P.0 mmHg LV V1 mean P.4 mmHg LV V1 mean: 128.2 cm/sec LV V1 VTI: 36.8 cm TR max champ: 249.1 cm/sec TR max P.8 mmHg ECHO/Echo Complete Interpretation Summary Left ventricular systolic function is normal. The estimated ejection fraction is 60 %. There is mild mitral annular calcification. The mitral annular calcification onto the base of the posterior mitral valve le aflet. Trivial mitral valve insufficiency. Mild tricuspid valve insufficiency. Stable appearing mechanical aortic valve apparatus. Right ventricular systolic pressure estimated to be 28 mmHg. No evidence for diastolic dysfunction. Comment: 2D echocardiographic images demonstrate a bright calcific appearing ec hodense mobile lesion associated with the aortic valve apparatus of uncertain etiology with a differe ntial diagnosis potentially including a healed vegetation, however, other etiologies cannot nec essarily be excluded. Clinical correlation recommended. Ordering Physician: Elmer Meade Referring Physician: Fay Cardenas M.D. Performed By: Billy Manzo RCS
--- NOTE | 2022-03-11 08:31 | STRESSREP_ITS ---
Stress Test Report Date: 03-11-2022 Procedure: Pharmacologic stress nuclear imaging study Indications: Shortness of breath/dyspnea on exertion; aortic valve disorder status post aortic valve replacement Consent: Per the patient Procedure: The patient underwent pharmacologic (Regadenoson 0.4mg ) evaluation with a peak heart rate of 92 beats per minute (55%predicted maximal heart rate) and a peak blood pressure of 162/98 mmHg. The baseline ECG demonstrated normal sinus rhythm; poor R wave progression. The peak pharmacologic ECG demonstrated no obvious ECG changes. [There were no cardiac dysrhythmias pretest, during pharmacologic infusion, or recovery]. [There was no complaint of chest discomfort during pharmacologic infusion or recovery]. The examination was discontinued secondary to completion of protocol. Impression: 1. Pharmacologic (Regadenoson) evaluation 2. Peak pharmacologic ECG with no obvious ECG changes. 3. [There were no cardiac dysrhythmias pretest, during pharmacologic infusion, or recovery]. 4. Nuclear images pending Myocardial perfusion imaging study: Technique: The patient was injected with 11.8 millicuries of technetium 99m Cardiolite and subsequently rest SPECT Cardiolite nuclear imaging was obtained in the horizontal long, vertical long, and short axis views. The patient underwent pharmacologic (Regadenoson) evaluation with a peak heart rate of 92 beats per minute (55% percent predicted maximal heart rate) and a peak blood pressure of 162/98 mmHg. The patient was injected with 33.1 millicuries of technetium 99m Cardiolite and subsequently stress SPECT Cardiolite nuclear imaging was obtained in the horizontal long, vertical long, and short axis views. A gated Cardiolite study at peak stress was obtained. Interpretation: Rest and stress SPECT Cardiolite nuclear imaging status post realignment, normalization, and attenuation correction demonstrate []. [There is end systolic thickening and brightening]. [The gated Cardiolite study demonstrates myocardial thickening and inward wall motion]. The reported LVEF is []%. Impression: 1. [Rest and stress SPECT Cardiolite nuclear imaging demonstrate relative uniform tracer uptake and myocardial perfusion appearing within normal limits]. 2. The gated Cardiolite study reports an LVEF of []%. This note was generated with [employer] software. It may contain incorrect words, spelling, and punctuation that were not noted in checking the note before signing.
== END 2022-03-11 23:59 | disposition home or self-care (01) ==
LOC: CVS 06:12
PROVIDERS: PCP Internal Medicine; Visit Provider Internal Medicine Cardiovascular Disease
DX: R06.00 Dyspnea, unspecified (principal); R00.2 Palpitations; I10 Essential (primary) hypertension; E78.2 Mixed hyperlipidemia; Z87.74 Personal history of (corrected) congenital malformations of heart and circulatory system; Z79.01 Long term (current) use of anticoagulants; Z95.2 Presence of prosthetic heart valve
CPT/HCPCS: 78452; 93017; 93306; A9500; A4216; J2785

== ENCOUNTER 2022-03-11 06:13 | Outpatient (CLI) | payer MEDICARE, SELFPAY | END 2022-03-11 23:59 | disposition home or self-care (01) | LOC: CVS 06:14 | PROVIDERS: PCP Internal Medicine; Visit Provider Internal Medicine Cardiovascular Disease | DX: Z00.00 Encounter for general adult medical examination without abnormal findings (principal) ==

== ENCOUNTER 2022-04-11 09:14 | Outpatient (RCR) | payer MEDICARE, SELFPAY ==
[2022-04-11 09:26] LABS: INR Fingerstick 2.5; Prothrombin Time Fingerstick 28.7 SEC (11.7-14.9)
== END 2022-04-11 18:00 | disposition home or self-care (01) ==
LOC: MTLAB 09:14
PROVIDERS: PCP Internal Medicine; Referring Provider Internal Medicine Cardiovascular Disease; Visit Provider Internal Medicine Cardiovascular Disease
DX: Z95.2 Presence of prosthetic heart valve (principal); Z79.01 Long term (current) use of anticoagulants
CPT/HCPCS: 36416; 85610

== ENCOUNTER 2022-04-26 11:03 | Emergency (ER) | payer MEDICARE, SELFPAY ==
[2022-04-26 11:03] VITALS: BP 160/93
[2022-04-26 11:04] VITALS: PULSE 118; RESP 22; TEMP 36.4; O2SAT 98; BMI 27.3
--- NOTE | 2022-04-26 11:26 | EX.ED.DYSGE1 ---
HPI History of Present Illness Chief Complaint: Nosebleed Informant: patient Narrative Narrative: Patient presents with left-sided epistaxis. This just started within the last hour. He did not sneeze cough pick or hit the nose. He has had this once before. Patient is also on Coumadin for mechanical [place] valve. His last level was checked in the hospital a few days ago but does not know what it is. Patient just got out of the hospital for a week and a half stay for what sounds like a [place] mechanical heart valve infection. He is on doxycycline through a PICC line. He denies fevers or chills. Through the PICC line he also gets a heparin flush after IV antibiotics but this is not heparin plan for systemic anticoagulation. It is just plan to keep the PICC line patent. Pinching the nose does help the bleeding but not stop it. It is really been all out of the left side. PFSH PFSH Medical History Abnormal echocardiogram findings without diagnosis Alcohol abuse Anxiety Back disorder Blood infection Depression Dyspnea on exertion Essential hypertension GERD (gastroesophageal reflux disease) Herniated intervertebral disc of lumbar spine History of bicuspid aortic valve Hypertension correction current use of anticoagulant Mixed hyperlipidemia Palpitations Smoker Home Medications allopurinol 100 mg PO DAILY 11/08/21 [History Last Taken Unknown] atenolol 50 mg PO DAILY 11/08/21 [History Last Taken Unknown] atorvastatin 10 mg PO DAILY 11/08/21 [History Last Taken Unknown] hydroxyzine HCl 50 mg PO DAILY 11/08/21 [History Last Taken Unknown] lamotrigine 25 mg PO DAILY 11/08/21 [History Last Taken Unknown] lisinopril 40 mg PO DAILY 11/08/21 [History Last Taken Unknown] pantoprazole 40 mg PO DAILY 11/08/21 [History Last Taken Unknown] trazodone 100 mg PO QHS 11/08/21 [History Last Taken Unknown] warfarin 2 mg PO DAILY 11/08/21 [History Last Taken Unknown] warfarin 4 mg PO DAILY 11/08/21 [History Last Taken Unknown] cholecalciferol (vitamin D3) 125 mcg (5,000 unit) tablet 125 mcg PO DAILY 01/22/22 [History Last Taken Unknown] amlodipine 2.5 mg tablet 5 mg PO DAILY #0 tab 02/15/22 [Rx Last Taken Unknown] doxepin 50 mg capsule 50 mg PO QHS #14 cap 03/12/22 [Rx Last Taken Unknown] Allergy/AdvReac Type Severity Reaction Status Date / Time No Known Allergies Allergy Verified 03/12/22 08:06 Family History Grandfather CHF (congestive heart failure) Surgical History History of mechanical aortic valve replacement (~09/26/04) History of tonsillectomy and adenoidectomy Mechanical heart valve present Social History Smoking Status: Current every day smoker tobacco type: cigarettes alcohol intake: current substance use type: does not use caffeine: Yes Type: coffee Number of servings: 6 ROS ROS ED Constitutional Constitutional ED: Denies chills, fever(s) or subjective Eyes Eyes: Denies blurry vision ENT ENT ED: Reports other Details: See history of present illness. ; Denies ear pain or sore throat Cardiovascular Cardiovascular: Denies chest pain Respiratory/Chest Respiratory/Chest: Denies dyspnea Gastrointestinal Gastrointestinal: Denies abdominal pain, nausea or vomiting Genitourinary Genitourinary ED: Denies hematuria Musculoskeletal Musculoskeletal: Denies myalgias Neurologic Neurologic: Denies headache(s) Endocrine Endocrinology: Denies polydipsia or polyuria Allergic/Immunologic Allergic/Immunologic ED: Denies urticaria EXAM Physical Exam Const Vital Signs: 04/26/22 11:03 04/26/22 11:04 Temperature 97.6 F L Temperature Source Temporal Pulse Rate 118 H Respiratory Rate 22 H Blood Pressure 160/93 H Blood Pressure Mean 115 Pulse Ox 98 Positive well nourished and well developed General Appearance ED: well developed; Negative for cyanotic or diaphoretic HEENT HEENT Narrative: Patient has nose clamp on. He still has a little bit of drip through this. Posterior pharynx had some bleeding a but appears to be stopped at this time. I do not see any draining. Eyes EOMs intact bilaterally Neck no lymphadenopathy Chest Wall inspection of chest normal Resp normal respiratory effort Cardio regular rate and regular rhythm Rate: other Other Details: Heart rate is 90 while I am in the room. He does have clear mechanical click/snap GI normal to inspection, nondistended, normoactive bowel sounds and non-tender Palpation: soft Back/Spine no CVA tenderness Extremity normal to inspection Extremity Narrative: PICC line is intact in right upper extremity Neuro Sensorium / Orientation: alert Psych mental status grossly normal Skin no rashes or lesions noted MDM MDM MDM Narrative Medical decision making narrative: We had the patient blow clots from his nose. A large amount of clots coming from the left side. Really none came out the right. I placed [place] solution with cotton balls in both nares though. We let this rest. I did put the clamp back on the front of the nose. When we came back he actually was doing well. He states he has not had any blood dripping out front or back. We removed the cotton balls/packing. I can see irritated Kiesselbach's plexus actually on both sides on the left is much more involved. I cannot see definitively which 1 was bleeding although it looks like it was not likely to the left. By his history it was the left side it was bleeding 2. I talked to the patient about options. He had a nasal packing/balloon placed in his nose once. He really does not want to do that again. I explained that we can use spray thrombin. Although it does not provide compression, statistically it has similar success ratio is packing. We did place spray thrombin in both nostrils. He tolerated this well. There is no bleeding. We are letting him rest at this time and will recheck him. Patient has been here for almost 2-1/2 hours. Is been about an hour and a half since I did spray thrombin. He really does not want to have the packing done. I had actually already gotten out and plan to. We discussed risk benefits and options of this. He has gotten up and walked around. He has gotten up and gone to the bathroom. He states he wants to go home. We discussed no touching or blowing his nose. We discussed that he if he has recurrent bleeding we recommend he return here for repeat evaluation and consider packing. His INR is actually just about therapeutic at 2.2. He is anemic from our old tests but we do not have recent. But his bleeding has stopped at this time. Lab Data Attestation: I reviewed the patient's lab results. Labs: Laboratory Results - last 24 hr 06/03/22 06/03/22 06/03/22 11:39 11:39 11:39 WBC 10.4 RBC 3.77 L Hgb 10.9 L Hct 32.0 L MCV 84.9 MCH 28.9 MCHC 34.1 RDW Std Deviation 44.5 H RDW Coeff of [place]hemias 14.4 Plt Count 352 MPV 8.9 Immature Gran % (Auto) 0.400 Neut % (Auto) 69.4 Lymph % (Auto) 24.4 [place] % (Auto) 5.1 Eos % (Auto) 0.1 Baso % (Auto) 0.6 Absolute Neuts (auto) 7.2 Absolute Lymphs (auto) 2.55 Nucleated RBC % 0.2 PT 24.3 H INR 2.2 Sodium 137 Potassium 3.8 Chloride 106 Carbon Dioxide 18.0 L Anion Gap 13 BUN 17 Creatinine 1.51 H Estim Creat Clear Calc 51.68 Est GFR (MDRD) Af Amer 62 Est GFR (MDRD) Non-Af 51 L BUN/Creatinine Ratio 11.3 Glucose 214 H Calcium 9.1 Discharge Plan Triage Chief Complaint: Nosebleed ED Provider: Dougie Wyatt Dx/Rx/DC Orders Clinical Impression: Left-sided epistaxis, Warfarin-induced coagulopathy, Anemia Instructions: ED Epistaxis (Adult) Prescriptions: No Action cholecalciferol (vitamin D3) 125 mcg (5,000 unit) tablet 125 mcg PO DAILY RF: 0 doxepin 50 mg capsule 50 mg PO QHS Qty: 14 RF: 0 atorvastatin 10 mg tablet 10 mg PO DAILY RF: 0 hydroxyzine HCl 50 mg tablet 50 mg PO DAILY RF: 0 allopurinol 100 mg tablet 100 mg PO DAILY RF: 0 warfarin 4 mg tablet 4 mg PO DAILY RF: 0 lamotrigine 25 mg tablet 25 mg PO DAILY RF: 0 trazodone 100 mg tablet 100 mg PO QHS RF: 0 pantoprazole 40 mg tablet,delayed release (DR/EC) 40 mg PO DAILY RF: 0 warfarin 2 mg tablet 2 mg PO DAILY RF: 0 lisinopril 40 mg tablet 40 mg PO DAILY RF: 0 atenolol 50 mg tablet 50 mg PO DAILY RF: 0 amlodipine 2.5 mg tablet 5 mg PO DAILY Qty: 0 RF: 0 Primary Care Provider: Fay Cardenas Referrals: Tico Rahman MD [STAFF PHYSICIAN] - 2 Days for wound check Fay Cardenas MD [Primary Care Provider] - Disposition Disposition: Home, Self Care
[2022-04-26] MEDS: Mixture 30 ML Bottle 10 ML TOPICAL (11:43)
[2022-04-26] MEDS: Thrombin 5,000 IU Kit (PSA) 5,000 IU Vial 5000 IU TOPICAL (11:43)
[2022-04-26 11:50] LABS: Absolute Lymphocyte Count 2.55 X10^3/uL (0.83-4.51); Absolute Neutrophil Count 7.2 X10^3/uL (2.0-7.7); Basophil# 0.06 X10^3/uL; Basophil% 0.6 % (0-1); Eosinophil# 0.01 X10^3/uL; Eosinophils% 0.1 % (0-5); Hemoglobin 10.9 g/dL (13.0-16.5); Lymphocyte # 2.55 X10^3/ul (0.83-4.51); Lymphocyte % 24.4 % (19-41); Mean Corp Hgb Conc 34.1 g/dL (32-36); Mean Corpuscular Hgb 28.9 pg (27.0-32.0); Mean Corpuscular Volume 84.9 fL (80-94); Mean Platelet Vol. 8.9 fl (6.2-12.0); Monocyte# 0.53 X10^3/uL; Monocyte% 5.1 % (0-10); NRBC Flagged by Analyzer 0.2 % (0-5); Neutrophil # 7.24 X10^3/uL (2.7-7.7); Neutrophil % 69.4 % (47-70); Platelet Count 352 K/mm3 (150-450); RBC Distribution Width CV 14.4 % (11.6-14.6); RBC Distribution Width SD 44.5 fl (35.1-43.9); Red Blood Count 3.77 M/mm3 (4.6-6.2); White Blood Count 10.4 K/mm3 (4.4-11.0)
[2022-04-26 11:59] LABS: International Normalized Ratio 2.2; Prothrombin Time (Protime)PT. 24.3 SECONDS (11.7-14.9)
[2022-04-26 12:27] LABS: Anion Gap 13 (5-15); BUN 17 mg/dL (7-18); BUN/Creat Ratio 11.3 RATIO (10-20); Calcium,Total 9.1 mg/dL (8.5-10.1); Chloride 106 mmol/L (98-107); Creatinine, Serum 1.51 mg/dL (0.70-1.30); EST Glomerular Filtration Rate 51 mL/min (>60); Est Glom Filt Rate - Afr Amer 62 mL/min (>60); Estimated Creatinine Clearance 51.68 ml/min; Glucose 214 mg/dL (74-106); Potassium 3.8 mmol/L (3.5-5.1); Sodium Level 137 mmol/L (136-145)
[2022-04-26] MEDS: 0.9% Saline Lock 10 ML Syringe IV (13:07)
[2022-04-26 13:48] VITALS: PULSE 78; RESP 16; O2SAT 98
== END 2022-04-26 13:49 | disposition home or self-care (01) ==
PROVIDERS: Emergency Provider Emergency Medicine; PCP Internal Medicine; Visit Provider Emergency Medicine
DX: R04.0 Epistaxis (principal); R79.1 Abnormal coagulation profile; D64.9 Anemia, unspecified; I10 Essential (primary) hypertension; F17.210 Nicotine dependence, cigarettes, uncomplicated; E78.2 Mixed hyperlipidemia; K21.9 Gastro-esophageal reflux disease without esophagitis; Z79.01 Long term (current) use of anticoagulants; Z79.899 Other long term (current) drug therapy
CPT/HCPCS: 30901; 36592; 80048; 85025; 85610; 99285; A4216

== ENCOUNTER 2022-05-20 13:14 | Outpatient (RCR) | payer MEDICARE, SELFPAY ==
[2022-04-29 08:30] LABS: INR Fingerstick 2.4; Prothrombin Time Fingerstick 27.6 SEC (11.7-14.9)
[2022-05-20 13:31] LABS: INR Fingerstick 1.9; Prothrombin Time Fingerstick 22.5 SEC (11.7-14.9)
== END 2022-05-23 16:00 | disposition home or self-care (01) ==
LOC: MTLAB 13:14
PROVIDERS: PCP Internal Medicine; Referring Provider Internal Medicine Cardiovascular Disease; Visit Provider Internal Medicine Cardiovascular Disease
DX: Z95.2 Presence of prosthetic heart valve (principal); Z79.01 Long term (current) use of anticoagulants
CPT/HCPCS: 36416; 85610

== ENCOUNTER 2022-05-29 09:19 | Outpatient (RCR) | payer MEDICARE, SELFPAY ==
[2022-05-29 12:46] LABS: INR Fingerstick 2.5; Prothrombin Time Fingerstick 29.5 SEC (11.7-14.9)
== END 2022-06-23 03:33 | disposition home or self-care (01) ==
LOC: MTLAB 09:19
PROVIDERS: PCP Internal Medicine; Referring Provider Internal Medicine Cardiovascular Disease; Visit Provider Internal Medicine Cardiovascular Disease
DX: Z95.2 Presence of prosthetic heart valve (principal); Z79.01 Long term (current) use of anticoagulants
CPT/HCPCS: 36416; 85610

== ENCOUNTER 2022-07-01 14:20 | Outpatient (RCR) | payer MEDICARE, SELFPAY ==
[2022-07-01 14:36] LABS: Prothrombin Time Fingerstick 23.5 SEC (11.7-14.9)
== END 2022-07-01 18:00 | disposition home or self-care (01) ==
LOC: MTLAB 14:20
PROVIDERS: PCP Internal Medicine; Referring Provider Internal Medicine Cardiovascular Disease; Visit Provider Internal Medicine Cardiovascular Disease
DX: Z79.01 Long term (current) use of anticoagulants (principal); Z95.2 Presence of prosthetic heart valve
CPT/HCPCS: 36416; 85610

== ENCOUNTER 2022-08-20 08:41 | Outpatient (RCR) | payer MEDICARE, SELFPAY ==
[2022-08-20 10:31] LABS: INR Fingerstick 4.5; Prothrombin Time Fingerstick 49.7 SEC (11.7-14.9)
[2022-08-20 11:05] LABS: International Normalized Ratio 3.7; Prothrombin Time (Protime)PT. 36.3 SECONDS (11.7-14.9)
== END 2022-08-20 18:00 | disposition home or self-care (01) ==
LOC: MTLAB 08:41
PROVIDERS: PCP Internal Medicine; Referring Provider Internal Medicine Cardiovascular Disease; Visit Provider Internal Medicine Cardiovascular Disease
DX: Z79.01 Long term (current) use of anticoagulants (principal); Z95.2 Presence of prosthetic heart valve
CPT/HCPCS: 36415; 36416; 85610

== ENCOUNTER 2022-10-23 09:58 | Outpatient (RCR) | payer MEDICARE, SELFPAY ==
[2022-09-24 13:10] LABS: INR Fingerstick 4.9; Prothrombin Time Fingerstick 53.7 SEC (11.7-14.9)
[2022-09-26 08:30] LABS: INR Fingerstick 3.6; Prothrombin Time Fingerstick 40.4 SEC (11.7-14.9)
[2022-10-23 10:15] LABS: INR Fingerstick 3.3; Prothrombin Time Fingerstick 37.3 SEC (11.7-14.9)
== END 2022-10-23 18:00 | disposition home or self-care (01) ==
LOC: MTLAB 09:58
PROVIDERS: PCP Internal Medicine; Referring Provider Internal Medicine Cardiovascular Disease; Visit Provider Internal Medicine Cardiovascular Disease
DX: Z79.01 Long term (current) use of anticoagulants (principal); Z95.2 Presence of prosthetic heart valve
CPT/HCPCS: 36416; 85610

== ENCOUNTER 2022-11-22 10:53 | Outpatient (RCR) | payer MEDICARE, SELFPAY ==
[2022-11-01 15:22] LABS: International Normalized Ratio 1.7; Prothrombin Time (Protime)PT. 19.9 SECONDS (11.7-14.9)
[2022-11-19 10:01] LABS: INR Fingerstick 5.8; Prothrombin Time Fingerstick 62.1 SEC (11.7-14.9)
[2022-11-19 12:29] LABS: International Normalized Ratio 6.2; Prothrombin Time (Protime)PT. 54.6 SECONDS (11.7-14.9)
[2022-11-22 11:01] LABS: Prothrombin Time Fingerstick 23.2 SEC (11.7-14.9)
== END 2022-11-22 18:00 | disposition home or self-care (01) ==
LOC: MTLAB 10:53
PROVIDERS: PCP Internal Medicine; Referring Provider Internal Medicine Cardiovascular Disease; Visit Provider Internal Medicine Cardiovascular Disease
DX: Z79.01 Long term (current) use of anticoagulants (principal); Z95.2 Presence of prosthetic heart valve
CPT/HCPCS: 36415; 36416; 85610

== ENCOUNTER 2022-12-17 09:31 | Outpatient (RCR) | payer MEDICARE, SELFPAY ==
[2022-12-02 09:30] LABS: INR Fingerstick 2.1; Prothrombin Time Fingerstick 24.7 SEC (11.7-14.9)
[2022-12-17 12:34] LABS: International Normalized Ratio 3.1
== END 2022-12-17 11:31 | disposition home or self-care (01) ==
LOC: MTLAB 09:31
PROVIDERS: PCP Internal Medicine; Referring Provider Internal Medicine Cardiovascular Disease; Visit Provider Internal Medicine Cardiovascular Disease
DX: Z79.01 Long term (current) use of anticoagulants (principal); Z95.2 Presence of prosthetic heart valve
CPT/HCPCS: 36415; 36416; 85610

== ENCOUNTER 2023-02-05 11:56 | Outpatient (RCR) | payer MEDICARE, SELFPAY ==
[2023-01-23 15:41] LABS: Prothrombin Time (Protime)PT. 47.4 SECONDS (11.7-14.9)
[2023-01-23 15:47] LABS: International Normalized Ratio 5.2
[2023-01-29 11:36] LABS: INR Fingerstick 3.5
[2023-02-05 12:15] LABS: INR Fingerstick 4.1; Prothrombin Time Fingerstick 45.2 SEC (11.7-14.9)
[2023-02-05 13:02] LABS: International Normalized Ratio 3.6; Prothrombin Time (Protime)PT. 35.3 SECONDS (11.7-14.9)
== END 2023-02-21 21:01 | disposition home or self-care (01) ==
LOC: MTLAB 11:56
PROVIDERS: PCP Internal Medicine; Referring Provider Internal Medicine Cardiovascular Disease; Visit Provider Internal Medicine Cardiovascular Disease
DX: Z79.01 Long term (current) use of anticoagulants (principal); Z95.2 Presence of prosthetic heart valve
CPT/HCPCS: 36415; 36416; 85610

== ENCOUNTER 2023-03-04 10:25 | Outpatient (RCR) | payer MEDICARE, SELFPAY ==
[2023-02-24 12:40] LABS: INR Fingerstick 1.9
[2023-03-05 09:16] LABS: INR Fingerstick 2.7; Prothrombin Time Fingerstick 28.8 SEC (11.7-14.9)
== END 2023-03-23 05:26 | disposition home or self-care (01) ==
LOC: MTLAB 10:25
PROVIDERS: PCP Internal Medicine; Referring Provider Physician Assistant Medical; Visit Provider Physician Assistant Medical
DX: Z79.01 Long term (current) use of anticoagulants (principal)
CPT/HCPCS: 36416; 85610

== ENCOUNTER 2023-04-15 11:03 | Outpatient (RCR) | payer MEDICARE, SELFPAY ==
[2023-04-15 11:25] LABS: INR Fingerstick 3.1; Prothrombin Time Fingerstick 33.1 SEC (11.7-14.9)
== END 2023-04-15 12:03 | disposition home or self-care (01) ==
LOC: MTLAB 11:03
PROVIDERS: PCP Internal Medicine; Referring Provider Physician Assistant Medical; Visit Provider Physician Assistant Medical
DX: Z79.01 Long term (current) use of anticoagulants (principal)
CPT/HCPCS: 36416; 85610

== ENCOUNTER 2023-06-27 10:34 | Outpatient (RCR) | payer MEDICARE, SELFPAY ==
[2023-06-27 10:41] LABS: INR Fingerstick 2.5; Prothrombin Time Fingerstick 26.7 SEC (11.7-14.9)
== END 2023-06-27 18:00 | disposition home or self-care (01) ==
LOC: MTLAB 10:34
PROVIDERS: PCP Internal Medicine; Referring Provider Physician Assistant Medical; Visit Provider Physician Assistant Medical
DX: Z79.01 Long term (current) use of anticoagulants (principal); Z95.2 Presence of prosthetic heart valve
CPT/HCPCS: 36416; 85610

== ENCOUNTER 2023-11-27 11:06 | Outpatient (RCR) | payer MEDICARE, SELFPAY ==
[2023-11-27 13:12] LABS: INR Fingerstick 1.5; Prothrombin Time Fingerstick 16.7 SEC (11.7-14.9)
== END 2023-11-27 18:00 | disposition home or self-care (01) ==
LOC: MTLAB 11:06
PROVIDERS: PCP Internal Medicine; Referring Provider Physician Assistant Medical; Visit Provider Physician Assistant Medical
DX: Z79.01 Long term (current) use of anticoagulants (principal); Z95.2 Presence of prosthetic heart valve
CPT/HCPCS: 36416; 85610

== ENCOUNTER → 2023-12-17 | Outpatient (CLI) | payer MEDICARE, SELFPAY ==
[2023-12-17 15:55] LABS: Mucous, Urine 0 SEEN /hpf (<or=2+); Red Blood Cells-Urine 0 SEEN /hpf (0-5); Squamous Epithelial Cells - UA 0 SEEN /hpf (0-5); White Blood Cells 0 SEEN /hpf (0-5)
[2023-12-17 15:59] LABS: Color, Urine Yellow (Yellow); Glucose, Dipstick Normal (Normal); Ketone-Dipstick Negative (Negative); Leukocyte Esterase-Dipstick Negative /ul (Negative); Nitrite-Dipstick Negative (Negative); Occult Blood-Urine Negative /ul (Negative); Protein-Dipstick Negative (Negative); Specific Gravity, Urine 1.005 (1.002-1.030); Urine Bilirubin Dipstick Negative (Negative); Urine Clarity Clear (Clear); Urine Urobilinogen 1 mg/dl (Normal)
[2023-12-17 16:41] LABS: Bacteria RARE /hpf (None Seen)
[2023-12-17 16:48] LABS: Absolute Lymphocyte Count 1.51 X10^3/uL (0.83-4.51); Absolute Neutrophil Count 6.2 X10^3/uL (2.0-7.7); Basophil# 0.05 X10^3/uL; Basophil% 0.6 % (0-1); Eosinophil# 0.16 X10^3/uL; Eosinophils% 1.9 % (0-5); Hematocrit 46.6 % (40-54); Hemoglobin 15.9 g/dL (13.0-16.5); Lymphocyte # 1.51 X10^3/ul (0.83-4.51); Lymphocyte % 17.6 % (19-41); Mean Corp Hgb Conc 34.1 g/dL (32-36); Mean Corpuscular Hgb 29.6 pg (27.0-32.0); Mean Corpuscular Volume 86.8 fL (80-94); Monocyte# 0.57 X10^3/uL; Monocyte% 6.6 % (0-10); NRBC Flagged by Analyzer 0 % (0-5); Neutrophil # 6.24 X10^3/uL (2.7-7.7); Neutrophil % 72.7 % (47-70); Platelet Count 249 K/mm3 (150-450); RBC Distribution Width CV 14.4 % (11.6-14.6); RBC Distribution Width SD 45.7 fl (35.1-43.9); Red Blood Count 5.37 M/mm3 (4.6-6.2); White Blood Count 8.6 K/mm3 (4.4-11.0)
[2023-12-17 17:12] LABS: AST(SGOT) 212 U/L (15-37); Alanine Aminotransfer ALT/SGPT 442 U/L (16-61); Albumin, Serum 3.4 g/dL (3.2-5.0); Alkaline Phosphatase 519 U/L (45-117); Anion Gap 8 (5-15); BUN 11 mg/dL (7-18); BUN/Creat Ratio 9.7 RATIO (10-20); Calcium,Total 9.2 mg/dL (8.5-10.1); Chloride 96 mmol/L (98-107); Creatinine, Serum 1.13 mg/dL (0.70-1.30); EST Glomerular Filtration Rate 71 mL/min (>60); Est Glom Filt Rate - Afr Amer 86 mL/min (>60); GGTP 868 U/L (15-85); Globulin 3.5 g/dL (2.2-4.2); Glucose 115 mg/dL (74-106); Lipase 98 U/L (13-75); Magnesium 2.1 mg/dL (1.6-2.6); Potassium 3.3 mmol/L (3.5-5.1); Protein, Total 6.9 g/dL (6.4-8.2); Sodium Level 130 mmol/L (136-145)
== END | disposition home or self-care (01) ==
LOC: LAB 15:03
PROVIDERS: PCP Internal Medicine; Referring Provider Internal Medicine; Visit Provider Internal Medicine
DX: R82.998 Other abnormal findings in urine (principal); R10.9 Unspecified abdominal pain; R17 Unspecified jaundice; F10.10 Alcohol abuse, uncomplicated
CPT/HCPCS: 36415; 80053; 81001; 82977; 83690; 83735; 85025; 87086; 87088

== ENCOUNTER 2023-12-18 18:46 | Inpatient (IN) | payer MEDICARE, SELFPAY ==
[2023-12-18 18:47] VITALS: BP 135/85; PULSE 83; RESP 18; TEMP 36.3; O2SAT 97; BMI 29.5
--- NOTE | 2023-12-18 19:08 | ED.VIS.GI ---
HPI HPI - GI History of Present Illness Chief Complaint: Abd Pain Informant: patient Abdominal Pain/Flank Pain Onset: Month(s) Context: Gradual Onset Timing: Continuous Current Severity: Mild Maximum Severity: Mild Worsened by: Nothing Relieved by: Nothing Diarrhea/Melena/Hematochezia GI Symptom: Negative for Diarrhea or Melena Associated Symptoms Associated Symptoms: Negative for Dysuria, Frequency, Hematuria or Urgency Narrative Narrative: 58-year-old male history of hypertension and mechanical heart valve for which she is anticoagulated on Coumadin. Has had a history of upper abdominal pain for months had elevated LFTs. Has had a recent CAT scan and I think there is some type of biliary duct obstruction. Primary care physician did labs in the last several days. The plan is to admit the patient to be seen by GI for possible ERCP. Prior similar symptoms: Yes Recent Illness/Hospitalization: No PFSH PFSH Medical History Alcohol abuse Anxiety and depression Essential hypertension GERD (gastroesophageal reflux disease) Gout Herniated intervertebral disc of lumbar spine History of bicuspid aortic valve History of endocarditis Hypertension snf current use of anticoagulant Mixed hyperlipidemia Smoker Home Medications atorvastatin 10 mg tablet 10 mg PO DAILY 11/08/21 [History Last Taken Unknown] amlodipine 5 mg tablet 5 mg PO BID #180 tabs 05/20/22 [Rx Last Taken Unknown] pantoprazole 40 mg tablet,delayed release 40 mg PO DAILY #90 tabs 08/26/22 [Rx Last Taken Unknown] allopurinol 100 mg tablet See Rx Instructions .Route .COMPLEX #90 tabs 12/26/22 [Rx Last Taken Unknown] atenolol 50 mg tablet 50 mg PO DAILY #90 tabs 08/11/23 [Rx Last Taken Unknown] warfarin 2 mg tablet 2 mg PO .COMPLEX #90 tabs 11/27/23 [Rx Last Taken Unknown] warfarin 4 mg tablet 4 mg PO .COMPLEX #90 tabs 11/27/23 [Rx Last Taken Unknown] Allergy/AdvReac Type Severity Reaction Status Date / Time No Known Allergies Allergy Verified 12/18/23 18:47 Family History Grandfather CHF (congestive heart failure) Surgical History History of mechanical aortic valve replacement (~09/26/04) History of tonsillectomy and adenoidectomy Mechanical heart valve present Social History Smoking Status: Current every day smoker tobacco type: cigarettes alcohol intake: current substance use type: does not use caffeine: Yes Type: coffee Number of servings: 6 ROS ROS ED ROS Narrative Abdominal pain. Review of Systems ROS Unobtainable: Denies due to encephalopathy Constitutional Constitutional ED: Denies chills or fever(s) ENT ENT ED: Denies ear pain Cardiovascular Cardiovascular: Denies chest pain Respiratory/Chest Respiratory/Chest: Denies cough or dyspnea Gastrointestinal Gastrointestinal: Reports abdominal pain; Denies diarrhea or vomiting Genitourinary Genitourinary ED: Denies dysuria or hematuria Musculoskeletal Musculoskeletal: Denies arthralgias or back pain Integumentary Denies abscess or Abrasions Neurologic Neurologic: Denies headache(s) Psychiatric Psychiatric: Denies anxiety Endocrine Endocrinology: Denies polydipsia Hematologic/Lymphatic Hematologic/Lymphatic: Denies easy bleeding or easy bruising Allergic/Immunologic Allergic/Immunologic ED: Denies mouth swelling, tongue swelling or urticaria EXAM Physical Exam Narrative Exam Narrative: 58-year-old male no acute distress vital signs stable afebrile. HEENT exam unremarkable. Moist mucous members. Neck nontender. Lungs clear to auscultation. Heart regular rhythm no murmur. Abdomen soft, nondistended normal bowel sounds no peritoneal signs. Moving all 4 extremities. Calves are nontender that edema or cords. Neurologically patient is awake and alert with no focal motor deficits. Const Vital Signs: 12/18/23 18:47 12/18/23 19:25 Temperature 97.3 F L 97.9 F Temperature Source Temporal Pulse Rate 83 80 Respiratory Rate 18 18 Blood Pressure 135/85 H 136/90 H Blood Pressure Mean 101 105 Pulse Ox 97 97 Positive well nourished and well developed; Negative for obese, cachectic, contractures or unkempt General Appearance ED: well developed and NAD; Negative for unkempt, cachectic, contractures or pallor Nutritional Appearance: Negative for cachectic or obese HEENT Reports moist mucous membranes; Denies dry mucous membranes normocephalic and atraumatic; Negative for trauma or tenderness Mouth ED: No dry mucous membranes Mouth: No dry mucous membranes Eyes PERRL and EOMs intact bilaterally General Eye ED: Negative for pale conjunctiva or scleral icterus Neck no lymphadenopathy, supple and no JVD General: Negative for tenderness Carotids: Negative for other Lymph Lymphatic: Negative for other Resp normal respiratory effort and clear to auscultation bilaterally Effort and Inspection: Negative for respiratory distress Auscultation: Negative for rales, rhonchi or wheezes Cardio regular rate, regular rhythm, S1 normal heart sound, S2 normal heart sound and no murmurs Rate: Negative for bradycardia or tachycardic Rhythm: Negative for abnormal rhythm GI non-tender, non-distended and no masses Inspection: Negative for abdominal distention Auscultation: normoactive bowel sounds Palpation: soft; Negative for tender, guarding or rebound tenderness present Back/Spine no CVA tenderness General Back: Negative for CVA tenderness Cervical Spine: Negative for cervical spine tenderness Thoracic Spine / Upper Back: Negative for thoracic spinal tenderness Lumbar Spine / Lower Back: Negative for lumbar spinal tenderness Coccyx: Negative for other Extremity full ROM General Extremety ED: Negative for edema, tenderness or other findings General Extremity: Negative for edema or other findings Neuro CN's II-XII intact bilaterally and moves all extremities Sensorium / Orientation: alert, oriented to person, oriented to place and oriented to time; Negative for orientation impaired, confused, lethargic or stuporous Motor Exam: strength 5/5 throughout; Negative for general weakness or strength abnormal Psych mental status grossly normal and thought process normal Appearance: Negative for unkempt Attitude: No agitated Mood & Affect: Negative for depressed, anxious or tearful Skin no wounds General Skin Exam: Negative for jaundice or pallor Lesions: no lesions Rashes: no rashes Trauma: Negative for abrasion Nails: Negative for discolored MDM MDM MDM Narrative Medical decision making narrative: 58-year-old male with abdominal pain and elevated liver enzymes concern is for biliary obstruction. He is anticoagulant on Coumadin to his mechanical aortic valve. Will be admitted by the hospitalist. I did start an IV and will obtain a PT/INR the other labs are done in the last 2 days. He had also outpatient CAT scan imaging. History & Record Review Discussion w/independent historian: Patient Additional record(s) reviewed:: Prior inpatient record, Prior outpatient record and Prior labs Lab Data Attestation: I reviewed the patient's lab results. Lab results narrative: PT and INR equals 13 and 1.0. Hospitalist 1 to make sure that was not an erroneous value because the patient did take his Coumadin today. Certainly going a recheck. Labs: Laboratory Results - last 24 hr 12/18/23 19:10 PT 13.0 INR 1.0 Phosphorus 3.6 Magnesium 2.0 Discharge Plan Dx/Rx/DC Orders Clinical Impression: Abdominal pain, Hx of aortic valve replacement, mechanical, Chronic anticoagulation, Biliary obstruction, Elevated liver enzymes Disposition Disposition: Acute Care Hospital [facility]
--- NOTE | 2023-12-18 19:24 | HP.PCM.HOS_ITS ---
HPI - General General Date of Admission: 12/18/23 Date of Service: 12/18/23 Chief Complaint: Abdominal pain, abnormal CT imaging and labs. HPI Narrative The patient is a 58 y/o M w/ PMHx: Obesity, Anxiety and Depression, History EtOH abuse (sober since 11/21/23, prior heavy liquor/beer intake), HTN, HLD, Hx bicuspid aortic valve s/p AVR 09/2004 on coumadin w/ Hx possible prior Endocarditis, Gout, GERD, Tobacco use who presents to the [facility] ED on 12/18/23 with history of abdominal pain gradually worsening over the last several weeks, noted to be in the RUQ only, intermittently occuring with no clear cause precipitating onset described as dull aching throb with sharp shooting severe pain as if he been punched in the gut at that location rated 10 out of 10 in severity at its worst with no nausea, emesis, diaphoresis, fever, chills although he does report 1 time he did have diarrhea with the episode but that is not normal prompting eventual PCP evaluation with abnormal outpatient labs with hyperbilirubinemia, transaminitis and CT contracted thick-walled gallbladder and recent gallbladder ultrasound reportedly with concern for biliary obstruction prompting ED referral. PCP contacted and discussed case with Dr. Gonzalez per discussion with the ED. Prior work-up in the ED CT abdomen pelvis with contrast performed earlier in the day at approximately 11 AM with us fatty infiltration of liver, small hepatic cyst, contracted thick-walled gallbladder, bladder wall thickening although bladder not completely distended. Lab workup performed 12/17/2023 with noted CBC with WBC 8.6, hemoglobin 15.9, platelet 249 without marked shift, CMP with sodium 130, potassium 3.3, chloride 96, glucose 115, T. bili 2.80, AST/ALT 212/442, alk phos 519, lipase 98, urinalysis unremarkable. ED notes GB at clinic was reported notable for biliary obstruction with no obvious concerning focal GB findings. 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 Mixed hyperlipidemia Smoker Home Medications atorvastatin 10 mg tablet 10 mg PO DAILY 11/08/21 [History Last Taken Unknown] amlodipine 5 mg tablet 5 mg PO BID #180 tabs 05/20/22 [Rx Last Taken Unknown] pantoprazole 40 mg tablet,delayed release 40 mg PO DAILY #90 tabs 08/26/22 [Rx Last Taken Unknown] allopurinol 100 mg tablet See Rx Instructions .Route .COMPLEX #90 tabs 12/26/22 [Rx Last Taken Unknown] atenolol 50 mg tablet 50 mg PO DAILY #90 tabs 08/11/23 [Rx Last Taken Unknown] warfarin 2 mg tablet 2 mg PO .COMPLEX #90 tabs 11/27/23 [Rx Last Taken Unknown] warfarin 4 mg tablet 4 mg PO .COMPLEX #90 tabs 11/27/23 [Rx Last Taken Unknown] Allergy/AdvReac Type Severity Reaction Status Date / Time No Known Allergies Allergy Verified 12/18/23 18:47 Family History (Updated 12/18/23 @ 20:[address] Kylah Dyer MD) Grandfather CHF (congestive heart failure) Mother Migraines Father Lung cancer COPD (chronic obstructive pulmonary disease) Surgical History History of mechanical aortic valve replacement (~09/26/04) History of tonsillectomy and adenoidectomy Mechanical heart valve present Social History (Updated 12/18/23 @ 20:[address] Kylah Dyer MD) household members: none Smoking Status: Current every day smoker tobacco type: cigarettes Smoking packs per day: 1 Smoking cigarettes per day: 20.0 alcohol intake: former details: Sober since 11/21/23, prior heavy beer/liquor intake. substance use type: does not use caffeine: Yes Type: coffee Number of servings: 6 ROS ROS Narrative Admission Review of Systems: CONSTITUTIONAL: No weight loss, fever, chills, + weakness or fatigue. HEENT: + Mild scleral icterus. Eyes: No visual loss, blurred vision, double vision. Ears, Nose, Throat: No hearing loss, sneezing, congestion, runny nose or sore throat. SKIN: No rash or itching, lesions, wounds except + mild jaundiced appearance. CARDIOVASCULAR: No chest pain, chest pressure or chest discomfort, palpitations, edema, orthopnea, syncopal events. RESPIRATORY: No shortness of breath, cough or sputum, wheezing, hemoptysis. GASTROINTESTINAL: + Intermittent abdominal pain, right-sided. No anorexia, nausea, vomiting, diarrhea, melena, BRBPR. GENITOURINARY: No dysuria, frequency, urgency or retention. NEUROLOGICAL: No headache, dizziness, syncope, paralysis, ataxia, numbness or tingling in the extremities, focal weakness, change in bowel or bladder control, seizure. MUSCULOSKELETAL: + muscle, back pain, joint pain or stiffness. HEMATOLOGIC: No anemia, bleeding or bruising. LYMPHATICS: No enlarged nodes. No history of splenectomy. PSYCHIATRIC: No history of depression or anxiety. ENDOCRINOLOGIC: No reports of sweating, cold or heat intolerance. No polyuria or polydipsia. ALLERGIES: No history of asthma, hives, eczema or rhinitis. Vital Signs Vital Signs Vital Signs: 12/18/23 18:47 Temperature 97.3 F L Temperature Source Temporal Pulse Rate 83 Respiratory Rate 18 Blood Pressure 135/85 H Blood Pressure Mean 101 Pulse Ox 97 Weight Weight: 188 lb 4.8 oz Body Mass Index (BMI) 29.5 Physical Exam Narrative Physical Examination: General: Awake, alert, oriented x 3 and cooperative, seated upright in the ED bed in no apparent distress, no current abdominal pain. Skin: Normal turgor, no icterus, no cyanosis, mildly jaundiced appearance. HEENT: AT/NC, EOMI, PERRLA, MMM, mild scleral icterus present, no carotid bruits or JVD noted. Lungs: CTA bilaterally, moderate effort, mild decrease BL bases, no rales, ronchi or wheezing. Heart: Regular rate and rhythm; no gallop, rub audible. Abdomen: Soft, NTTP including in the ROQ currently, ND, mildly hyperactive BS, no appreciated marked HSM. Extremities: No cyanosis, clubbing, or edema. Neurological: Patient awake, alert, oriented as noted, cognitive function intact; pupils equally reactive to light and accommodation, cranial nerves II- XII grossly normal, moving all 4 extremities, no focal deficits, strength currently appears preserved. Psychiatric: Affect appears mildly fatigued otherwise normal, no acute evidence of depressive or anxiety feelings. Assessment & Plan Assessment/Plan (1) Biliary obstruction: PLAN: Plan The patient is a 58 y/o M w/ PMHx: Obesity, Anxiety and Depression, History EtOH abuse (sober since 11/21/23, prior heavy liquor/beer intake), HTN, HLD, Hx bicuspid aortic valve s/p AVR 09/2004 on coumadin w/ Hx possible prior Endocarditis, Gout, GERD, Tobacco use who presents to the [facility] ED on 12/18/23 with history of abdominal pain gradually worsening over the last several weeks, noted to be in the RUQ only, intermittently occuring with no clear cause precipitating onset described as dull aching throb with sharp shooting severe pain as if he been punched in the gut at that location rated 10 out of 10 in severity at its worst with no nausea, emesis, diaphoresis, fever, chills although he does report 1 time he did have diarrhea with the episode but that is not normal prompting eventual PCP evaluation with abnormal outpatient labs with hyperbilirubinemia, transaminitis and CT contracted thick-walled gallbladder and recent gallbladder ultrasound reportedly with concern for biliary obstruction prompting ED referral. #1. Abdominal pain with associated jaundice with hyperbilirubinemia and transaminitis with suspected biliary obstruction: Will admit to [facility], maintain on IVFs, allow clears until midnight and then n.p.o. status following, maintain on PPI, IV/po pain control, trend CBC and CMP, will request records from recent outpatient workup including gallbladder assessment/ultrasound, as needed antiemetic and pain regimen, given INR upon ED presentation subtherapeutic 1.0 discussed with ED and will immediately repeat and if consistent patient will immediately be started on heparin drip with bolus. #2. Valvular heart disease, Chart reported prior history concerning for po ssible endocarditis: Patient with history of bicuspid aortic valve status post AVR, mechanical 09/2004, on Coumadin which she reports taking however upon current presentation INR upon ED arrival is subtherapeutic 1.0, discussed with ED staff and will immediately recheck and if this is consistent then will immediately be started on a heparin drip with a bolus per discussion with ED physician. #3. Hypertension: Continue home regimen including amlodipine, atenolol, PRN hydralazine. #4. Hyperlipidemia: Will hold statin therapy given acute presentation as noted in #1, resume once appropriate. #5. Obesity: Weight loss and lifestyle changes encouraged. #6. GERD: Will maintain on PPI. #7. Gout: Clarifying however patient per report is not taking allopurinol. #8. History of alcohol abuse: Patient sober since 11/21/2023, encourage continued sobriety, prior heavy liquor and beer intake, will maintain on MVI, thiamine and folic acid, case management consulted. #9. Tobacco Abuse: Encouraged cessation, inpatient consultation per RT, NR if desired. #10. DVT prophylaxis: INR upon ED arrival is subtherapeutic 1.0, discussed with ED staff and will immediately recheck and if this is consistent then will immediately be started on a heparin drip with a bolus per discussion with ED physician. Charges/Coding Visit Charges Inpatient E&M: 33202 Init Hosp L3
[2023-12-18 19:25] VITALS: BP 136/90; PULSE 80; RESP 18; TEMP 36.6; O2SAT 97
[2023-12-18 19:59] LABS: Phosphorus 3.6 mg/dL (2.5-4.9)
[2023-12-18 20:33] VITALS: BMI 29.0
[2023-12-18 20:43] VITALS: BP 136/79; PULSE 75; RESP 17; TEMP 36.9; O2SAT 98
[2023-12-18 20:45] LABS: International Normalized Ratio 1.2
[2023-12-18] MEDS: amLODIPine 5 MG Tablet PO (21:07)
[2023-12-18] MEDS: Pantoprazole Sodium 40 MG Tablet PO (21:08)
[2023-12-18 21:28] LABS: Partial Thromboplast Time 31.9 Seconds (24.1-36.2)
[2023-12-18] MEDS: HEPARIN/D5w 25,000 UNITS 25,000 UNITS/250 ML IV.SOLN. 12 UNITS CONT INF (22:15)
[2023-12-18] MEDS: Heparin Injection (Vial) 5,000 UNIT/ML VIAL 6000 UNIT IV (22:17)
[2023-12-19] VITALS (12 sets, daily range): BP systolic 98–155; BP diastolic 68–99; PULSE 65–77; RESP 16–18; TEMP 36.1–37.1; O2SAT 94–100; BMI 29.0
[2023-12-19] MEDS: 0.9% Normal Saline (1000mL) 1,000 ML 100 ML IV (00:34)
[2023-12-19 04:59] LABS: Absolute Lymphocyte Count 1.65 X10^3/uL (0.83-4.51); Absolute Neutrophil Count 4.4 X10^3/uL (2.0-7.7); Basophil# 0.07 X10^3/uL; Eosinophil# 0.14 X10^3/uL; Eosinophils% 2.1 % (0-5); Hematocrit 40.7 % (40-54); Hemoglobin 13.9 g/dL (13.0-16.5); Lymphocyte # 1.65 X10^3/ul (0.83-4.51); Lymphocyte % 24.4 % (19-41); Mean Corp Hgb Conc 34.2 g/dL (32-36); Mean Corpuscular Hgb 29.8 pg (27.0-32.0); Mean Corpuscular Volume 87.2 fL (80-94); Mean Platelet Vol. 10.3 fl (6.2-12.0); Monocyte# 0.43 X10^3/uL; Monocyte% 6.4 % (0-10); NRBC Flagged by Analyzer 0 % (0-5); Neutrophil # 4.41 X10^3/uL (2.7-7.7); Neutrophil % 65.2 % (47-70); Platelet Count 212 K/mm3 (150-450); RBC Distribution Width SD 44.8 fl (35.1-43.9); Red Blood Count 4.67 M/mm3 (4.6-6.2); White Blood Count 6.8 K/mm3 (4.4-11.0)
[2023-12-19 05:13] LABS: International Normalized Ratio 1.1; Prothrombin Time (Protime)PT. 14.1 SECONDS (11.7-14.9)
[2023-12-19 05:14] LABS: Partial Thromboplast Time 61.8 Seconds (24.1-36.2)
[2023-12-19 05:30] LABS: AST(SGOT) 49 U/L (15-37); Alanine Aminotransfer ALT/SGPT 211 U/L (16-61); Alkaline Phosphatase 320 U/L (45-117); Anion Gap 5 (5-15); BUN 13 mg/dL (7-18); Calcium,Total 8.6 mg/dL (8.5-10.1); Chloride 104 mmol/L (98-107); Creatinine, Serum 0.93 mg/dL (0.70-1.30); EST Glomerular Filtration Rate 89 mL/min (>60); Est Glom Filt Rate - Afr Amer 108 mL/min (>60); Estimated Creatinine Clearance 90.81 ml/min; Globulin 2.9 g/dL (2.2-4.2); Glucose 131 mg/dL (74-106); Potassium 3.4 mmol/L (3.5-5.1); Protein, Total 5.9 g/dL (6.4-8.2); Sodium Level 135 mmol/L (136-145)
--- NOTE | 2023-12-19 07:56 | PCM.PN.HOSP ---
Reason for Visit Reason for Visit: Diagnoses Obstruction of bile duct (12/18/23) Objective Data Objective Data Vital Signs: Vital Signs Temp Pulse Resp BP Pulse Ox O2 Del Method 98.1 F 66 18 116/80 95 Room Air 12/19/23 03:50 12/19/23 07:34 12/19/23 03:50 12/19/23 03:50 12/19/23 03:50 12/19/23 03:50 Oxygen Delivery Method Room Air Weight: 185 lb 3.013 oz Body Mass Index (BMI) 29.0 Intake & Output: Intake and Output for Last 24 Hours 12/17/23 12/18/23 12/19/23 23:59 23:59 23:59 Intake Total 1000 / 1000 Balance 1000 / 1000 Lab / Micro Data 12/19/23 04:25 12/19/23 04:25 Labs: Laboratory Results - last 24 hr 12/18/23 19:10: PT 13.0, INR 1.0, Phosphorus 3.6, Magnesium 2.0 12/18/23 20:15: PT 15.0 H, INR 1.2, APTT 31.9 12/19/23 04:25: WBC 6.8, RBC 4.67, Hgb 13.9, Hct 40.7, MCV 87.2, MCH 29.8, MCHC 34.2, RDW Std Deviation 44.8 H, RDW Coeff of Nehemias 14.0, Plt Count 212, MPV 10.3, Immature Gran % (Auto) 0.900, Neut % (Auto) 65.2, Lymph % (Auto) 24.4, [place] % (Auto) 6.4, Eos % (Auto) 2.1, Baso % (Auto) 1.0, Absolute Neuts (auto) 4.4, Absolute Lymphs (auto) 1.65, Nucleated RBC % 0, PT 14.1, INR 1.1, APTT 61.8 H, Sodium 135 L, Potassium 3.4 L, Chloride 104, Carbon Dioxide 26.0, Anion Gap 5, BUN 13, Creatinine 0.93, Estim Creat Clear Calc 90.81, Est GFR (MDRD) Af Amer 108, Est GFR (MDRD) Non-Af 89, BUN/Creatinine Ratio 14.0, Glucose 131 H, Calcium 8.6, Total Bilirubin 1.40 H, AST 49 H, ALT 211 H, Alkaline Phosphatase 320 H, Total Protein 5.9 L, Albumin 3.0 L, Globulin 2.9, Albumin/Globulin Ratio 1.0 Physical Exam Narrative Seen and examined. The patient complain of 2 to 3 months of right upper quadrant pain intermittently but got worse in last 1 week. He is admitted with jaundice. No fever. Physical exam General: Alert, Oriented x3, Cooperative HEENT: Atraumatic, PERRLA, EOMI, Normocephalic. Icterus present Oral: No Gingival or Mucosal Lesions/ Ulcerations Neck: Supple, No JVD, Negative Carotid Bruits Chest wall/Lungs: Air entry diminished in bilateral lung bases. No crepitation/rhonchi Cardiovascular: Regular rate, Regular Rhythm, Normal S1, Normal S2, No murmurs Abdomen: Mild tenderness over right upper quadrant. No guarding/rigidity. No palpable mass. Liver not enlarged. Spleen not palpable. Bowel Sounds Present, Soft, Non-Distended : No renal angle tenderness. No suprapubic tenderness. Extremities: No edema, Capillary Refill Less than 3 Seconds Skin: No rashes, No breakdown Musculoskeletal: No Tenderness to Palpation of Joints or Extremities Neurological: Cranial nerves II-XII grossly intact, DTR 2+/4. No acute focal neurological deficit. Psych/Mental Status: Normal Affect, Appropriate. Assessment & Plan Assessment/Plan (1) Biliary obstruction: PLAN: Plan The patient is a 58 y/o male came to ED with upper abdominal pain for months, elevated liver chemistry with recent CT scan suggestive of biliary ductal obstruction. Patient had labs in last several days with PCP plan was possible ERCP. CT abdomen showed contracted thick-walled gallbladder. Recent gallbladder ultrasound showed concern for biliary obstruction. #1. Abdominal pain with associated jaundice with hyperbilirubinemia and transaminitis with suspected biliary obstruction: The patient is admitted on [facility] floor. N.p.o. for need of possible ERCP. Right upper quadrant sonogram as patient had last ultrasound about 2 3 months ago in [facility]. On PPI, IV/po pain control No leukocytosis. H&H and platelet count in normal range. INR 1.1. Total bili 2.8, with no fractionation. GGT 868, ALT 442, AST 212 improving. Alkaline phosphatase 519 . Right upper quadrant sonogram was done which shows fatty infiltration of liver, 2.2 x 2.2 x 1.9 cm hypoechoic heterogeneous nodule in medial right lobe of liver corresponding to the CT finding of segment 5, wrongly reported as Segment 8. GI to evaluate for ERCP. Recommend preop antibiotic. Mild hypokalemia K3.4. Serum magnesium and phosphorus normal. #2. Valvular heart disease, Chart reported prior history concerning for possible endocarditis: Patient with history of bicuspid aortic valve status post AVR, mechanical 09/2004, on Coumadin which patient reports he was taking it however INR subtherapeutic therefore patient on IV heparin drip. #3. Hypertension: Continue home regimen including amlodipine, atenolol, PRN hydralazine. #4. Hyperlipidemia: hold statin therapy given acute presentation. #5. Obesity: Weight loss and lifestyle changes encouraged. #6. GERD: maintain on PPI. #7. Gout: Clarifying however patient per report is not taking allopurinol. #8. History of alcohol abuse: Patient sober since 11/21/2023, encourage continued sobriety, prior heavy liquor and beer intake, will maintain on MVI, thiamine and folic acid, case management consulted. #9. Tobacco Abuse: Encouraged cessation, #10. DVT prophylaxis: INR upon ED arrival is subtherapeutic 1.0, discussed with ED staff and will immediately recheck and if this is consistent then will immediately be started on a heparin drip with a bolus per discussion with ED physician. Clinical Impression(s) from Imaging Studies Abdomen Ultrasound 12/19/23 10:26 IMPRESSION: Fatty infiltration of the liver. 2.2 cm x 2.2 cm x 1.9 cm hypoechoic heterogeneous nodule in the medial right lobe of the liver corresponds to the CT findings. This is not a typical cyst. Correlation with MRI examination is recommended. Multiple small gallstones. Charges/Coding Addendum Addendum: Total time of the visit including total time spent in counseling or coordination of care, (more than 50% of the total time, spent in obtaining medical information from nurses and other ancillary care providers,explaining to the patient about labs, imaging, diagnosis and management of active complex medical conditions), discussion with take away worker and radiologist, review of labs and imaging is 40 minutes. Visit Charges Inpatient E&M: 12610 Subs Hosp L3
[2023-12-19] MEDS: Atenolol 50 MG Tablet PO (08:02)
[2023-12-19] MEDS: Pantoprazole Sodium 40 MG Tablet PO (08:02)
[2023-12-19 08:22] LABS: Bilirubin, Direct 0.91 mg/dL (0.00-0.30)
[2023-12-19 08:25] LABS: GGTP 535 U/L (15-85)
--- NOTE | 2023-12-19 10:26 | US_ITS ---
STUDY: ABDOMINAL ULTRASOUND - RIGHT UPPER QUADRANT REASON FOR VISIT: Male, 58 years old Jaundice, RUQ pain for 2-3 months -- Please screen pancreas TECHNIQUE: Ultrasound evaluation of the right upper quadrant was performed with real-time and static greenwood-scale imaging. TECHNICAL QUALITY: Adequate. COMPARISON: Comparison is made with prior CT scan and pelvis dated December 18, 2023. FINDINGS: Liver: The liver measures 16.2 cm. There is increased echogenicity consistent with fatty infiltration. The bile ducts are within normal limits. There is hepatic color flow. The direction of portal flow is hepatopetal. The finding on the CT scan corresponds to a 2.2 cm x 2.2 cm x 1.9 cm hypoechoic heterogeneous nodule in the medial portion of the right lobe of the liver. This is not a typical cyst. Correlation with MRI is recommended. Gallbladder: Normal distended gallbladder. The gallbladder wall measures 1.9 mm. There is a negative sonographic Shell''s sign. There is no pericholecystic fluid. There are multiple echogenic structures within the gallbladder, consistent with multiple small gallstones. Common Bile Duct (C.B.D.): The common bile duct measures 4.8 mm. Pancreas: Normal size of the head, body and tail of the pancreas. There is normal echogenicity of the pancreas. There is no demonstrated pancreatic mass or cyst. Right Kidney: Normal size of the right kidney. The right kidney measures 11.9 cm x 6.7 cm x 5.7 cm. Normal renal cortex. The right cortex measures 1.6 cm. There is no demonstrated renal mass or cyst. There is no right hydronephrosis. US/Abdomen Limited IMPRESSION: Fatty infiltration of the liver. 2.2 cm x 2.2 cm x 1.9 cm hypoechoic heterogeneous nodule in the medial right lobe of the liver corresponds to the CT findings. This is not a typical cyst. Correlation with MRI examination is recommended. Multiple small gallstones. Electronically Signed: Renny Wallace MD at 12:56 EST ,
--- NOTE | 2023-12-19 11:05 | NURSING ---
PTT drawn for surgery
[2023-12-19 11:29] LABS: Partial Thromboplast Time 30.4 Seconds (24.1-36.2)
[2023-12-19] MEDS: Lactated Ringers 1,000 ML 15 ML IV (12:44)
--- NOTE | 2023-12-19 15:25 | CASEMGMT ---
RN CM NOTE: RN CM to room to complete initial assessment. Pt out of room at this time. RN CM to complete at a later time. Mindy BSN RN CM
--- NOTE | 2023-12-19 16:00 | RAD_ITS ---
EXAM: FL ERCP Biliary and Pancreatic Ductal Systems HISTORY: ABD PAIN COMPARISON: None Technique: Scope placed by Dr. Gonzalez. 4 fluoroscopic images obtained. 119.8 seconds of fluoroscopy, dosage of 23.57 Mgy FINDINGS: The endoscope was placed by Dr. Gonzalez. The ampulla was cannulized with placement of catheters into the pancreatic duct and common bile duct. Contrast was injected into the common bile duct. A stent was then placed into the biliary tree. RAD/ERCP Biliary/Pancreas IMPRESSION: Successful cannulization of the pancreatic duct and common bile duct with contrast injected into a normal-appearing biliary tree. A stent was left in place. No intraoperative complications Electronically Signed: Manoj Noonan MD at 18:52 EST ,
--- NOTE | 2023-12-19 17:17 | OP.ERCP_ITS ---
Patient Name: Tico Alonzo Procedure Date: 12/19/2023 3:31 PM Date of : 1965 Age: 58 Procedure: ERCP Indications: Evaluation and possible treatment of bile duct stone(s), Jaundice, Elevated liver enzymes Providers: Paresh Gonzalez DO Medicines: Monitored Anesthesia Care Patient Profile: This is a 58 year old male. Refer to note in patient chart for documentation of history and physical. This patient has no history of previous ERCP. This patient has no history of surgical alteration of the upper digestive tract anatomy. Complications: No immediate complications. Procedure: Pre-Anesthesia Assessment: - Prior to the procedure, a History and Physical was performed, and patient medications and allergies were reviewed. The patient is competent. The risks and benefits of the procedure and the sedation options and risks were discussed with the patient. All questions were answered and informed consent was obtained. Patient identification and proposed procedure were verified by the physician. Mental Status Examination: alert and oriented. Airway Examination: normal oropharyngeal airway and neck mobility. Respiratory Examination: clear to auscultation. CV Examination: normal. Prophylactic Antibiotics: The patient does not require prophylactic antibiotics. Prior Anticoagulants: The patient has taken no anticoagulant or antiplatelet agents. After reviewing the risks and benefits, the patient was deemed in satisfactory condition to undergo the procedure. The anesthesia plan was to use monitored anesthesia care (MAC). Immediately prior to administration of medications, the patient was re-assessed for adequacy to receive sedatives. The heart rate, respiratory rate, oxygen saturations, blood pressure, adequacy of pulmonary ventilation, and response to care were monitored throughout the procedure. The physical status of the patient was re-assessed after the procedure. After obtaining informed consent, the scope was passed under direct vision. Throughout the procedure, the patient's blood pressure, pulse, and oxygen saturations were monitored continuously. The Duodenoscope was introduced through the mouth, and advanced to the duodenum and used to inject contrast into the bile duct and ventral pancreatic duct. The ERCP was accomplished without difficulty. The patient tolerated the procedure well. Findings: The compliance director film was normal. The esophagus was successfully intubated under direct vision. The scope was advanced to a normal major papilla in the descending duodenum without detailed examination of the pharynx, larynx and associated structures, and upper GI tract. The upper GI tract was grossly normal. The ventral pancreatic duct was deeply cannulated with the short-nosed traction sphincterotome. Contrast was injected. I personally interpreted the bile duct and pancreatic duct images. There was brisk flow of contrast through the ducts. Image quality was excellent. Contrast extended to the entire biliary tree. Opacification of the entire pancreatic ductal system was successful. The maximum diameter of the ducts was 2 mm. The entire opacified area was normal. A 0.035 inch x 260 cm angled Hydra Jagwire was passed into the ventral pancreatic duct. One 5 Fr by 7 cm temporary stent with two external flaps and two internal flaps was placed 5 cm into the ventral pancreatic duct. Clear fluid flowed through the stent. The stent was in good position. A 5 mm biliary sphincterotomy was made with a needle knife over a pancreatic stent using ERBE electrocautery. The sphincterotomy oozed blood. To discover objects, the biliary tree was swept with a 12 mm balloon starting at the bifurcation. Sludge was swept from the duct. All stones were removed. One 10 Fr by 5 cm temporary stent was placed 5 cm into the common bile duct. Bile flowed through the stent. The stent was in good position. Impression: - Choledocholithiasis was found. Complete removal was accomplished by biliary sphincterotomy and balloon extraction. - One temporary stent was placed into the ventral pancreatic duct. - A biliary sphincterotomy was performed. - The biliary tree was swept. - One temporary stent was placed into the common bile duct. Procedure Code(s): --- Professional --- 67078, Endoscopic retrograde cholangiopancreatography (ERCP); with placement of endoscopic stent into biliary or pancreatic duct, including pre- and post-dilation and guide wire passage, when performed, including sphincterotomy, when performed, each stent [id number], 59, Endoscopic retrograde cholangiopancreatography (ERCP); with placement of endoscopic stent into biliary or pancreatic duct, including pre- and post-dilation and guide wire passage, when performed, including sphincterotomy, when performed, each stent [id number], Endoscopic retrograde cholangiopancreatography (ERCP); with removal of calculi/debris from biliary/pancreatic duct(s) 20020, 26, Combined endoscopic catheterization of the biliary and pancreatic ductal systems, radiological supervision and interpretation CPT copyright 2021 [employer]. All rights reserved. The codes documented in this report are preliminary and upon lunchroom monitor review may be revised to meet current compliance requirements. Paresh Gonzalez DO 12/19/2023 5:17:31 PM This report has been signed electronically. Number of Addenda: 0 Note Initiated On: 12/19/2023 3:31 PM
--- NOTE | 2023-12-19 17:18 | OP.CCLET_ITS ---
12/19/2023 Fay Cardenas [facility] [address] [place] [address] Re : ERCP procedure for Tico Herculeskacey Dear Dr. Cardenas This procedure was performed on Tuesday, December 19, 2023. My impressions and recommendations are as follows: Impressions : - Choledocholithiasis was found. Complete removal was accomplished by biliary sphincterotomy and balloon extraction. - One temporary stent was placed into the ventral pancreatic duct. - A biliary sphincterotomy was performed. - The biliary tree was swept. - One temporary stent was placed into the common bile duct. Recommendations : My findings are described in the full procedure note, which is enclosed. If I can be of further assistance, please feel free to contact me at . Sincerely, Paresh Gonzalez, 12/19/2023 5:17:31 PM This report has been signed electronically.
[2023-12-19] MEDS: 0.9% Normal Saline (1000mL) 1,000 ML 200 ML IV ×2 (18:57→23:55)
[2023-12-19] MEDS: Piperacil/Tazobactam 3.375 GM in 0.9% Normal Saline (50mL MB+) 50 ML IV (19:01)
[2023-12-19] MEDS: amLODIPine 5 MG Tablet PO (21:21)
[2023-12-19] MEDS: Acetaminophen 325 MG Tablet 650 MG PO (21:21)
[2023-12-19] MEDS: oxyCODONE 5 MG Tablet PO (21:22)
[2023-12-19] MEDS: 0.9% Saline Lock 10 ML Syringe IV (21:22)
[2023-12-20 01:00] LABS: Partial Thromboplast Time 56.1 Seconds (24.1-36.2)
[2023-12-20 03:48] VITALS: BMI 29.0
[2023-12-20] MEDS: 0.9% Normal Saline (1000mL) 1,000 ML 200 ML IV ×4 (04:49→20:59)
[2023-12-20] MEDS: Piperacil/Tazobactam 3.375 GM in 0.9% Normal Saline (50mL MB+) 50 ML IV ×3 (04:50→21:09)
[2023-12-20 04:52] VITALS: BP 137/76; PULSE 80; RESP 18; TEMP 36.4; O2SAT 96
[2023-12-20 06:16] LABS: Absolute Lymphocyte Count 1.11 X10^3/uL (0.83-4.51); Absolute Neutrophil Count 6.2 X10^3/uL (2.0-7.7); Basophil# 0.02 X10^3/uL; Basophil% 0.3 % (0-1); Hematocrit 40.7 % (40-54); Hemoglobin 13.6 g/dL (13.0-16.5); Lymphocyte # 1.11 X10^3/ul (0.83-4.51); Lymphocyte % 14.4 % (19-41); Mean Corp Hgb Conc 33.4 g/dL (32-36); Mean Corpuscular Hgb 29.7 pg (27.0-32.0); Mean Corpuscular Volume 88.9 fL (80-94); Mean Platelet Vol. 9.8 fl (6.2-12.0); Monocyte% 3.9 % (0-10); NRBC Flagged by Analyzer 0 % (0-5); Neutrophil % 80.5 % (47-70); Platelet Count 220 K/mm3 (150-450); RBC Distribution Width CV 13.7 % (11.6-14.6); RBC Distribution Width SD 44.4 fl (35.1-43.9); Red Blood Count 4.58 M/mm3 (4.6-6.2); White Blood Count 7.7 K/mm3 (4.4-11.0)
[2023-12-20 06:26] LABS: Partial Thromboplast Time 57.3 Seconds (24.1-36.2)
[2023-12-20 06:50] LABS: AST(SGOT) 36 U/L (15-37); Alanine Aminotransfer ALT/SGPT 142 U/L (16-61); Albumin, Serum 2.8 g/dL (3.2-5.0); Alkaline Phosphatase 274 U/L (45-117); Anion Gap 1 (5-15); BUN 11 mg/dL (7-18); BUN/Creat Ratio 10.1 RATIO (10-20); Bilirubin, Direct 0.82 mg/dL (0.00-0.30); Calcium,Total 8.9 mg/dL (8.5-10.1); Chloride 106 mmol/L (98-107); Creatinine, Serum 1.09 mg/dL (0.70-1.30); EST Glomerular Filtration Rate 74 mL/min (>60); Est Glom Filt Rate - Afr Amer 90 mL/min (>60); Estimated Creatinine Clearance 76.02 ml/min; GGTP 440 U/L (15-85); Globulin 3.1 g/dL (2.2-4.2); Glucose 145 mg/dL (74-106); Potassium 4.6 mmol/L (3.5-5.1); Protein, Total 5.9 g/dL (6.4-8.2); Sodium Level 133 mmol/L (136-145)
[2023-12-20] MEDS: HEPARIN/D5w 25,000 UNITS 25,000 UNITS/250 ML IV.SOLN. 12 UNITS CONT INF (07:59)
[2023-12-20 08:02] VITALS: BP 155/91; PULSE 62; RESP 16; TEMP 36.6; O2SAT 94
[2023-12-20 08:15] VITALS: O2SAT 96
[2023-12-20] MEDS: Folic Acid 1 MG Tablet PO (08:16)
[2023-12-20] MEDS: Thiamine Hydrochloride 100 MG Tablet PO (08:16)
[2023-12-20] MEDS: Multivitamins,Ther W-Minerals Tablet 1 TABLET PO (08:16)
--- NOTE | 2023-12-20 08:43 | PCM.PN.HOSP ---
Reason for Visit Reason for Visit: Diagnoses Obstruction of bile duct (12/18/23) Objective Data Objective Data Vital Signs: Vital Signs Temp Pulse Resp BP Pulse Ox O2 Del Method O2 Flow Rate 97.9 F 62 16 155/91 H 96 Room Air 2 12/20/23 08:02 12/20/23 08:02 12/20/23 08:02 12/20/23 08:02 12/20/23 08:15 12/20/23 08:15 12/19/23 17:45 Oxygen Flow Rate (L/min) 2 Oxygen Delivery Method Room Air Weight: 185 lb 3.013 oz Body Mass Index (BMI) 29.0 Intake & Output: Intake and Output for Last 24 Hours 12/18/23 12/19/23 12/20/23 23:59 23:59 23:59 Intake Total 5308.33 / 5308.33 1095.0 / 1095.0 Balance 5308.33 / 5308.33 1095.0 / 1095.0 Lab / Micro Data 12/20/23 06:07 12/20/23 06:07 Labs: Laboratory Results - last 24 hr 12/19/23 11:05: APTT 30.4 12/19/23 23:59: APTT 56.1 H 12/20/23 06:07: WBC 7.7, RBC 4.58 L, Hgb 13.6, Hct 40.7, MCV 88.9, MCH 29.7, MCHC 33.4, RDW Std Deviation 44.4 H, RDW Coeff of Nehemias 13.7, Plt Count 220, MPV 9.8, Immature Gran % (Auto) 0.900, Neut % (Auto) 80.5 H, Lymph % (Auto) 14.4 L, [place] % (Auto) 3.9, Eos % (Auto) 0.0, Baso % (Auto) 0.3, Absolute Neuts (auto) 6.2, Absolute Lymphs (auto) 1.11, Nucleated RBC % 0, APTT 57.3 H, Sodium 133 L, Potassium 4.6, Chloride 106, Carbon Dioxide 26.0, Anion Gap 1 L, BUN 11, Creatinine 1.09, Estim Creat Clear Calc 76.02, Est GFR (MDRD) Af Amer 90, Est GFR (MDRD) Non-Af 74, BUN/Creatinine Ratio 10.1, Glucose 145 H, Calcium 8.9, Total Bilirubin 1.20 H, Direct Bilirubin 0.82 H, GGT 440 H, AST 36, ALT 142 H, Alkaline Phosphatase 274 H, Total Protein 5.9 L, Albumin 2.8 L, Globulin 3.1 Radiography Diagnostic Testing: Radiology Impression Abdomen Ultrasound 12/19/23 10:26 IMPRESSION: Fatty infiltration of the liver. 2.2 cm x 2.2 cm x 1.9 cm hypoechoic heterogeneous nodule in the medial right lobe of the liver corresponds to the CT findings. This is not a typical cyst. Correlation with MRI examination is recommended. Multiple small gallstones. Electronically Signed: Renny Wallace MD at 12:56 EST , Endo Retro Cholangiopancreatogram 12/19/23 16:00 IMPRESSION: Successful cannulization of the pancreatic duct and common bile duct with contrast injected into a normal-appearing biliary tree. A stent was left in place. No intraoperative complications Electronically Signed: Manoj Noonan MD at 18:52 EST , Physical Exam Narrative Seen and examined. No abdominal pain. Earlier patient was admitted with 2 to 3 months of right upper quadrant pain intermittently but got worse in last 1 week. He is admitted with jaundice. No fever. Physical exam General: Alert, Oriented x3, Cooperative HEENT: Atraumatic, PERRLA, EOMI, Normocephalic. Icterus/jaundice improving. Oral: No Gingival or Mucosal Lesions/ Ulcerations Neck: Supple, No JVD, Negative Carotid Bruits Chest wall/Lungs: Air entry diminished in bilateral lung bases. No crepitation/rhonchi Cardiovascular: Regular rate, Regular Rhythm, Normal S1, Normal S2, No murmurs Abdomen: No tenderness. No guarding/rigidity. No palpable mass. Liver not enlarged. Spleen not palpable. Bowel Sounds Present, Soft, Non-Distended : No renal angle tenderness. No suprapubic tenderness. Extremities: No edema, Capillary Refill Less than 3 Seconds Skin: No rashes, No breakdown Musculoskeletal: No Tenderness to Palpation of Joints or Extremities Neurological: Cranial nerves II-XII grossly intact, DTR 2+/4. No acute focal neurological deficit. Psych/Mental Status: Normal Affect, Appropriate. Assessment & Plan Assessment/Plan (1) Biliary obstruction: PLAN: Plan The patient is a 58 y/o male came to ED with upper abdominal pain for months, elevated liver chemistry with recent CT scan suggestive of biliary ductal obstruction. Patient had labs in last several days with PCP plan was possible ERCP. CT abdomen showed contracted thick-walled gallbladder. Recent gallbladder ultrasound showed concern for biliary obstruction. #1. Abdominal pain with associated jaundice with hyperbilirubinemia and transaminitis with suspected biliary obstruction: The patient is admitted on [facility] floor. N.p.o. for need of possible ERCP. Right upper quadrant sonogram as patient had last ultrasound about 2 3 months ago in [facility]. On PPI, IV/po pain control No leukocytosis. H&H and platelet count in normal range. INR 1.1. Total bili 2.8, with no fractionation. GGT 868, ALT 442, AST 212 improving. Alkaline phosphatase 519 . Right upper quadrant sonogram was done which shows fatty infiltration of liver, 2.2 x 2.2 x 1.9 cm hypoechoic heterogeneous nodule in medial right lobe of liver corresponding to the CT finding of segment 5, wrongly reported as Segment 8. 12/20: Liver chemistry shows improvement in total bilirubin, alkaline phosphatase and transaminases and GGT. Right upper quadrant shows gallbladder stones but no pericholecystic fluid or GB wall thickening or sonographic Shell sign. Discussed with Dr. Hardy and he agrees that he is in appropriate inpatient setting for laparoscopic cholecystectomy as patient requires bridging IV heparinization because of mechanical aortic valve. Patient not on baby aspirin/Plavix or other antiplatelet agent. Plan for n.p.o. at midnight and stop heparin drip at 2 AM and lap ta for tomorrow AM. Continue IV antibiotics Zosyn. Mild hypokalemia K3.4. Serum magnesium and phosphorus normal. #2. Valvular heart disease, Chart reported prior history concerning for possible endocarditis: Patient with history of bicuspid aortic valve status post AVR, mechanical 09/2004, on Coumadin which patient reports he was taking it however INR subtherapeutic therefore patient on IV heparin drip. #3. Hypertension: Continue home regimen including amlodipine, atenolol, PRN hydralazine. #4. Hyperlipidemia: hold statin therapy given acute presentation. #5. Obesity: Weight loss and lifestyle changes encouraged. #6. GERD: maintain on PPI. #7. Gout: Clarifying however patient per report is not taking allopurinol. #8. History of alcohol abuse: Patient sober since 11/21/2023, encourage continued sobriety, prior heavy liquor and beer intake, will maintain on MVI, thiamine and folic acid, case management consulted. #9. Tobacco Abuse: Encouraged cessation, #10. DVT prophylaxis: INR upon ED arrival is subtherapeutic 1.0, discussed with ED staff and will immediately recheck and if this is consistent then will immediately be started on a heparin drip with a bolus per discussion with ED physician. Clinical Impression(s) from Imaging Studies Abdomen Ultrasound 12/19/23 10:26 IMPRESSION: Fatty infiltration of the liver. 2.2 cm x 2.2 cm x 1.9 cm hypoechoic heterogeneous nodule in the medial right lobe of the liver corresponds to the CT findings. This is not a typical cyst. Correlation with MRI examination is recommended. Multiple small gallstones. Charges/Coding Visit Charges Inpatient E&M: 37553 Subs Hosp L2
--- NOTE | 2023-12-20 09:13 | CON.PCM.SX_ITS ---
Assessment & Plan Assessment/Plan (1) Biliary obstruction: PLAN: The patient had biliary obstruction due to stones. He had ERCP yesterday with stone removal and stent placement. His LFTs are coming down. I discussed cholecystectomy with him to prevent this from happening again in the future. I was originally going to do him as an outpatient but he has a mechanical heart valve and is on a heparin drip and his Coumadin has been stopped already. I recommend stopping his heparin at 2 in the morning and I will take him for surgery tomorrow for laparoscopic cholecystectomy. I discussed the procedure in detail with the patient. I discussed the risks, benefits, and alternatives of the procedure. I discussed the risks including but not limited to bleeding, infection, injury to surrounding organs such as the liver, bile duct, bowels. I did discuss the possibility of having to convert to an open procedure as well as the possibility that if any injuries occurred this may necessitate further surgery at a tertiary care center. Andrea Hardy MD Pager: [facility] [address] [place] [address], [address] [place] [address] Office: HPI Consult Data Date of Consult: 12/20/23 HPI Narrative HPI Narrative: SACHI MIKE, is a 58 M who is admitted with jaundice. The patient was taken yesterday for ERCP with stone removal and stent placement. Patient reports he is feeling well with minimal pain in the upper abdomen. PFSH Medical History Anxiety and depression Essential hypertension GERD (gastroesophageal reflux disease) Gout Herniated intervertebral disc of lumbar spine History of alcohol abuse History of bicuspid aortic valve History of endocarditis Hypertension prison current use of anticoagulant Mixed hyperlipidemia Smoker Home Medications atorvastatin 10 mg tablet 10 mg PO DAILY 11/08/21 [History Last Taken Unknown] amlodipine 5 mg tablet 5 mg PO BID #180 tabs 05/20/22 [Rx Last Taken Unknown] pantoprazole 40 mg tablet,delayed release 40 mg PO DAILY #90 tabs 08/26/22 [Rx Last Taken Unknown] allopurinol 100 mg tablet See Rx Instructions .Route .COMPLEX #90 tabs 12/26/22 [Rx Last Taken Unknown] atenolol 50 mg tablet 50 mg PO DAILY #90 tabs 08/11/23 [Rx Last Taken Unknown] warfarin 2 mg tablet 2 mg PO .COMPLEX #90 tabs 01/04/24 [Rx Last Taken Unknown] warfarin 4 mg tablet 4 mg PO .COMPLEX #90 tabs 11/27/23 [Rx Last Taken Unknown] Allergy/AdvReac Type Severity Reaction Status Date / Time No Known Allergies Allergy Verified 12/18/23 18:47 Family History (Updated 12/18/23 @ 20:[address] Kylah Dyer MD) Grandfather CHF (congestive heart failure) Mother Migraines Father Lung cancer COPD (chronic obstructive pulmonary disease) Surgical History History of mechanical aortic valve replacement (~09/26/04) History of tonsillectomy and adenoidectomy Mechanical heart valve present Social History (Updated 12/18/23 @ 20:[address] Kylah Dyer MD) household members: none Smoking Status: Current every day smoker tobacco type: cigarettes Smoking packs per day: 1 Smoking cigarettes per day: 20.0 alcohol intake: former details: Sober since 11/21/23, prior heavy beer/liquor intake. substance use type: does not use caffeine: Yes Type: coffee Number of servings: 6 ROS ENT HEENT: Denies abnormal hearing or dysphagia Cardiovascular Cardiovascular: Denies chest pain Respiratory/Chest Respiratory/Chest: Denies cough or dyspnea Gastrointestinal Gastrointestinal: Reports abdominal pain; Denies coffee ground emesis, nausea or vomiting Genitourinary Genitourinary: Denies difficulty urinating Musculoskeletal Musculoskeletal: Denies abnormal gait Integumentary Integumentary: Reports jaundice Neurologic Neurologic: Denies dizziness Psychiatric Psychiatric: Denies anxiety Endocrine Endocrinology: Denies heat intolerance Physical Exam Const alert and oriented x3 HEENT normocephalic Eyes PERRL Neck full ROM Chest inspection of chest normal Resp normal respiratory effort Cardio Rate: regular rate Rhythm: regular rhythm GI soft to palpation and non-tender Lab / Micro Data 12/20/23 06:07 12/20/23 06:07 Labs: Laboratory Results - last 24 hr 12/19/23 11:05: APTT 30.4 12/19/23 23:59: APTT 56.1 H 12/20/23 06:07: WBC 7.7, RBC 4.58 L, Hgb 13.6, Hct 40.7, MCV 88.9, MCH 29.7, MCHC 33.4, RDW Std Deviation 44.4 H, RDW Coeff of Nehemias 13.7, Plt Count 220, MPV 9.8, Immature Gran % (Auto) 0.900, Neut % (Auto) 80.5 H, Lymph % (Auto) 14.4 L, [place] % (Auto) 3.9, Eos % (Auto) 0.0, Baso % (Auto) 0.3, Absolute Neuts (auto) 6.2, Absolute Lymphs (auto) 1.11, Nucleated RBC % 0, APTT 57.3 H, Sodium 133 L, Potassium 4.6, Chloride 106, Carbon Dioxide 26.0, Anion Gap 1 L, BUN 11, Creatinine 1.09, Estim Creat Clear Calc 76.02, Est GFR (MDRD) Af Amer 90, Est GFR (MDRD) Non-Af 74, BUN/Creatinine Ratio 10.1, Glucose 145 H, Calcium 8.9, Total Bilirubin 1.20 H, Direct Bilirubin 0.82 H, GGT 440 H, AST 36, ALT 142 H, Alkaline Phosphatase 274 H, Total Protein 5.9 L, Albumin 2.8 L, Globulin 3.1 Imaging Radiology Impression Abdomen Ultrasound 12/19/23 10:26 IMPRESSION: Fatty infiltration of the liver. 2.2 cm x 2.2 cm x 1.9 cm hypoechoic heterogeneous nodule in the medial right lobe of the liver corresponds to the CT findings. This is not a typical cyst. Correlation with MRI examination is recommended. Multiple small gallstones. Electronically Signed: Renny Wallace MD at 12:56 EST , Endo Retro Cholangiopancreatogram 12/19/23 16:00 IMPRESSION: Successful cannulization of the pancreatic duct and common bile duct with contrast injected into a normal-appearing biliary tree. A stent was left in place. No intraoperative complications Electronically Signed: Manoj Noonan MD at 18:52 EST ,
[2023-12-20] MEDS: oxyCODONE 5 MG Tablet PO ×2 (09:51→18:44)
[2023-12-20] MEDS: Atenolol 50 MG Tablet PO (09:53)
[2023-12-20] MEDS: Pantoprazole Sodium 40 MG Tablet PO (09:53)
[2023-12-20] MEDS: amLODIPine 5 MG Tablet PO ×2 (09:53→21:03)
[2023-12-20 12:20] LABS: Partial Thromboplast Time 48.3 Seconds (24.1-36.2)
[2023-12-20 14:16] VITALS: BP 127/82; PULSE 70; RESP 16; TEMP 36.7; O2SAT 100
[2023-12-20] MEDS: Heparin Injection (Vial) 5,000 UNIT/ML VIAL IV (14:34)
--- NOTE | 2023-12-20 15:10 | CASEMGMT ---
RN?CM?LEARNING CENTER COORDINATOR?CM?to room to meet with patient for initial transition planning/care coordination?assessment.?RN?CM?introduced self and role at [facility].? Pt voices understanding and consents to?assessment?at this time.? Pt resting in bed in no distress at this time.? Pt is A/O at this time and answers all questions appropriately.?? Care providers, pharmacy, and demographics verified/updated at this time. PCP: Dr Cardenas Specialists: [facility]/cardiology Preferred [facility]acy: [facility] Insurance: [employer] [facility] Prescription Benefit:?yes Living Will/HPOA:?Has LW and HCPOA, who is his son, Tico LNOK: Son, Tico. Pt has 3 other children Living Arrangements: Lives alone in mobile home w/4 steps to enter. Denies difficulty w/stairs. Independent. Transportation:?Pt states drives self and states no transportation concerns at this time.? DME: ? Denies using any DME and denies needs.? HHC/SNF: No hx of SNF. Has had HHC in the past for IV atb's. Declines needs and no needs identified at this time. Pt wishes to return home and states has no concerns with going home at time of discharge.? Pt states he was a heavy drinker after losing his and parents, but quit cold-turkey 11/21/2023. He declines wanting any resources. Pt voices no further concerns/needs at this time.? Advised pt to ask for?CM?if any further questions/concerns/needs arise.? Voices understanding. PLAN:??Home Mindy BSN?RN?CM
--- NOTE | 2023-12-20 16:31 | PN.GI_ITS ---
Subjective Subjective Patient is status post ERCP with stone removal and stent placement in the common bile duct and pancreatic duct to prevent post ERCP pancreatitis. He complains of some mild bloating but no pain and is tolerating a normal diet. He has not had a bowel movement yet. Objective Data Objective Data Vital Signs: Vital Signs Temp Pulse Resp BP Pulse Ox O2 Del Method O2 Flow Rate 98.0 F 70 16 127/82 H 100 Room Air 2 12/20/23 14:16 12/20/23 14:16 12/20/23 14:16 12/20/23 14:16 12/20/23 14:16 12/20/23 14:16 12/19/23 17:45 Oxygen Flow Rate (L/min) 2 Oxygen Delivery Method Room Air Weight: 185 lb 3.013 oz Body Mass Index (BMI) 29.0 Intake & Output: Intake and Output for Last 24 Hours 12/18/23 12/19/23 12/20/23 23:59 23:59 23:59 Intake Total 5308.33 / 5308.33 2222.6 / 2222.6 Balance 5308.33 / 5308.33 2222.6 / 2222.6 Lab / Micro Data 12/20/23 06:07 12/20/23 06:07 Labs: Laboratory Results - last 24 hr 12/19/23 23:59: APTT 56.1 H 12/20/23 06:07: WBC 7.7, RBC 4.58 L, Hgb 13.6, Hct 40.7, MCV 88.9, MCH 29.7, MCHC 33.4, RDW Std Deviation 44.4 H, RDW Coeff of Nehemias 13.7, Plt Count 220, MPV 9.8, Immature Gran % (Auto) 0.900, Neut % (Auto) 80.5 H, Lymph % (Auto) 14.4 L, [place] % (Auto) 3.9, Eos % (Auto) 0.0, Baso % (Auto) 0.3, Absolute Neuts (auto) 6.2, Absolute Lymphs (auto) 1.11, Nucleated RBC % 0, APTT 57.3 H, Sodium 133 L, Potassium 4.6, Chloride 106, Carbon Dioxide 26.0, Anion Gap 1 L, BUN 11, Creatinine 1.09, Estim Creat Clear Calc 76.02, Est GFR (MDRD) Af Amer 90, Est GFR (MDRD) Non-Af 74, BUN/Creatinine Ratio 10.1, Glucose 145 H, Calcium 8.9, Total Bilirubin 1.20 H, Direct Bilirubin 0.82 H, GGT 440 H, AST 36, ALT 142 H, Alkaline Phosphatase 274 H, Total Protein 5.9 L, Albumin 2.8 L, Globulin 3.1 12/20/23 11:55: APTT 48.3 H Radiography Diagnostic Testing: Radiology Impression Endo Retro Cholangiopancreatogram 12/19/23 16:00 IMPRESSION: Successful cannulization of the pancreatic duct and common bile duct with contrast injected into a normal-appearing biliary tree. A stent was left in place. No intraoperative complications Electronically Signed: Manoj Noonan MD at 18:52 EST , Physical Exam Const alert and oriented x3 HEENT normocephalic Eyes PERRL Neck full ROM Chest inspection of chest normal Resp normal respiratory effort Cardio Rate: regular rate Rhythm: regular rhythm GI soft to palpation and non-tender Assessment & Plan Assessment/Plan (1) Elevated liver enzymes: (2) Biliary obstruction: PLAN: 58-year-old gentleman with past medical history of aortic valve replacement on chronic anticoagulation comes in with abdominal pain and jaundice. He was discovered to have choledocholithiasis. He is scheduled for cholecystectomy tomorrow. If patient is doing well after his cholecystectomy he can be DC'd to home from GI standpoint with follow-up as an outpatient for stent removal. Charges/Coding Visit Charges Inpatient E&M: 01416 Subs Hosp L3
[2023-12-20 21:00] VITALS: BP 152/90; PULSE 68; RESP 18; TEMP 36.7; O2SAT 96
[2023-12-21] VITALS (18 sets, daily range): BP systolic 109–164; BP diastolic 76–101; PULSE 50–70; RESP 16–18; TEMP 35.8–37; O2SAT 90–100; BMI 29.9; BMI 29.7
[2023-12-21] MEDS: Acetaminophen 325 MG Tablet 650 MG PO ×2 (00:10→11:41)
[2023-12-21] MEDS: oxyCODONE 5 MG Tablet PO ×2 (00:10→17:02)
[2023-12-21] MEDS: 0.9% Normal Saline (1000mL) 1,000 ML 200 ML IV ×2 (01:56→07:05)
[2023-12-21] MEDS: Piperacil/Tazobactam 3.375 GM in 0.9% Normal Saline (50mL MB+) 50 ML IV ×3 (05:33→21:46)
[2023-12-21 06:21] LABS: Absolute Lymphocyte Count 1.18 X10^3/uL (0.83-4.51); Basophil# 0.05 X10^3/uL; Basophil% 0.7 % (0-1); Eosinophil# 0.06 X10^3/uL; Eosinophils% 0.9 % (0-5); Hematocrit 41.1 % (40-54); Hemoglobin 13.7 g/dL (13.0-16.5); Lymphocyte # 1.18 X10^3/ul (0.83-4.51); Lymphocyte % 17.2 % (19-41); Mean Corp Hgb Conc 33.3 g/dL (32-36); Mean Corpuscular Hgb 30.1 pg (27.0-32.0); Mean Corpuscular Volume 90.3 fL (80-94); Mean Platelet Vol. 10.2 fl (6.2-12.0); Monocyte# 0.52 X10^3/uL; Monocyte% 7.6 % (0-10); NRBC Flagged by Analyzer 0 % (0-5); Neutrophil # 5.01 X10^3/uL (2.7-7.7); Neutrophil % 72.9 % (47-70); Platelet Count 211 K/mm3 (150-450); RBC Distribution Width SD 46.3 fl (35.1-43.9); Red Blood Count 4.55 M/mm3 (4.6-6.2); White Blood Count 6.9 K/mm3 (4.4-11.0)
[2023-12-21 06:50] LABS: AST(SGOT) 25 U/L (15-37); Alanine Aminotransfer ALT/SGPT 99 U/L (16-61); Alkaline Phosphatase 234 U/L (45-117); Anion Gap 2 (5-15); BUN 10 mg/dL (7-18); Bilirubin, Direct 0.72 mg/dL (0.00-0.30); Calcium,Total 8.6 mg/dL (8.5-10.1); Chloride 108 mmol/L (98-107); EST Glomerular Filtration Rate 82 mL/min (>60); Est Glom Filt Rate - Afr Amer 99 mL/min (>60); Estimated Creatinine Clearance 84.12 ml/min; Glucose 123 mg/dL (74-106); Potassium 3.7 mmol/L (3.5-5.1); Sodium Level 136 mmol/L (136-145)
[2023-12-21] MEDS: Atenolol 50 MG Tablet PO (07:05)
--- NOTE | 2023-12-21 07:05 | RAD_ITS ---
INDICATION: LAP JARETH IN OR EXAMINATION/TECHNIQUE: Cine intraoperative films are presented for evaluation. Total Fluoroscopic Time: 32.8 seconds COMPARISON: No relevant prior comparison study available FINDINGS: The common bile duct is opacified. Filling defects are seen in the proximal common bile duct which may represent air bubbles. Small retained stones are possible. There is free passage into the duodenum. RAD/Cholangiogram/ O R,Initial IMPRESSION: Intraoperative angiogram as described above. Electronically Signed: Gianni Neumann MD at 11:05 EST ,
--- NOTE | 2023-12-21 09:20 | GALL_PTH ---
PATHOLOGY RESULTS PATIENT: SACHI MIKE . LOC: MS3 U#:[id number] AGE/SX: 58/M ROOM: HI314 RE12/18/[address]: Dr. Adan Heredia MD : 1965 BED: 1 DIS: 12/22/2023 SPEC #: [id number] RECD: 12/22/23 09:05 STATUS: OSCAR BURKSanti #: [id number] MIKEL: 12/21/23 09:[address]: Andrea Hardy DEPT: SURGICAL PATHOLOGY RECD BY: Eunice Hightower ENTERED: 12/22/23 10:15 SP TYPE: GALLBLADDE OTHR DR: MD Dr. Kylah Garcia MD Dr. Loren Kirchner, MD Dr. Nicholas F Kotsonis, MD Dr. Prakash Chand, MD Tissues: Gallbladder, NOS Procedures: Surgery Specimen Level III Comments: @ Ordering doctor for SUIII edited from to @ by NAVEEN at 12/22/23 1420 @ Submitting doctor edited from to @ by RGOOD at 12/22/23 1420 HEADER OPERATION: Laparoscopic cholecystectomy with IOC PRE-OP DIAGNOSIS: Biliary obstruction TISSUE SUBMITTED: Gallbladder MICROSCOPIC DIAGNOSIS Gallbladder, cholecystectomy: Chronic cholecystitis and cholelithiasis. AM:aundrea 12/23/2023 MICROSCOPIC DESCRIPTION Slides are reviewed. GROSS DESCRIPTION Received is one container labeled with the patient's name and designated gallbladder. The specimen consists of a gallbladder measuring 9.0 cm in length and up to 4.0 cm in diameter. The external surface is pink-mak, smooth and glistening for the most part. Focally it is granular, hemorrhagic and contains cautery artifact. The gallbladder contains green-yellow mucoid bile and five black irregular stones measuring in aggregate 1.5 x 1.0 x 0.3 cm and 0.3 to 0.6 cm in greatest dimension. The mucosa is bile-stained and without any mass lesions. The gallbladder wall measures up to 0.5 cm in thickness. Increased amount of subserosal fat is noted. Collar Band Creaser sections from the gallbladder and the cystic duct are submitted in one cassette. / SJ:aundrea 12/22/2023 TC:3 CPT: 58083
[2023-12-21] MEDS: Bupivacaine 0.25% 30 ML Vial (10:01)
--- NOTE | 2023-12-21 10:07 | OP.PCM_ITS ---
Report of Operation Date of Procedure: 12/21/23 Pre-Operative Diagnosis: Choledocholithiasis Post-Operative Diagnosis: Choledocholithiasis and acute cholecystitis Surgery/Procedure Performed:: Laparoscopic cholecystectomy with cholangiogram Type of Anesthesia: General/Regional Specimen's removed: Gallbladder Estimated Blood Loss (mL): 20 Description of Procedure: After obtaining informed consent patient was brought back to the operating room. General anesthesia was induced. The abdomen was prepped and draped in usual sterile fashion. A small midline incision was made superior to the umbilicus and deepened to the level of fascia. The fascia was elevated and incised. Next the peritoneum was elevated and incised in the same fashion. Finger sweep was performed and the Shah trocar was placed into the abdomen. The balloon was inflated. The abdomen was inflated to 15 mmHg. Next a camera was introduced into the abdomen and the abdomen was inspected. Next under direct visualization three 5-mm ports were placed one subxiphoid and 2 subcostal. Next the gallbladder was elevated and retracted toward the right shoulder. The peritoneum was stripped from the gallbladder. The infundibulum was located and retracted laterally. Next the triangle of Calot was dissected and the cystic duct and cystic artery were identified. Cholangiograms were performed. A clip was placed on the proximal cystic duct. A small mateus was made in the skin and the Ranfac catheter was placed into the abdomen under direct visualization. Next a small mateus was made in the cystic duct. The Ranfac catheter was placed into the cystic duct and a clip was placed over it. Cholangiograms were performed and there was good filling of the duodenum. The cystic duct was short but we were in the cystic duct. There was good flow into the duodenum. Next the clip was removed and the Ranfac catheter was removed. Three hemolock clips were placed across the cystic duct. The cystic duct was then divided leaving 2 clips on the stump. The cystic artery was clipped and divided in the same fashion. The hook cautery was then used to take the gallbladder off of the gallbladder bed. The gallbladder was very inflamed and there was a lot of oozing from the liver bed. Hemostasis was obtained using argon coagulation and hemoblast powder. Gallbladder fossa was irrigated and no active bleeding or bile leakage was noted. Next the camera was introduced in the subxiphoid port. An Endopouch bag was placed through the umbilical port and the gallbladder was placed into it. The gallbladder was then removed through the umbilical incision. The camera was then reinserted through the umbilical port. The gallbladder fossa was inspected once more and noted to be hemostatic with no leaking bile. The abdomen was suctioned dry. The 5 mm ports were removed under direct visualization. The umbilical port was then removed and the air was removed from the abdomen. Next using an 0 Vicryl suture the umbilical fascia was closed in a [id number] fashion. The umbilical port site was irrigated local anesthetic was administered to all the incisions. All the incisions were closed with interrupted subcuticular 4-0 Monocryl sutures followed by Steri- Strips and dressings. The patient was awoken and taken to PACU in stable condition. Admit VTE Documentation VTE Mechan Device Prophylaxis: SCD's
[2023-12-21] MEDS: Lactated Ringers 1,000 ML 15 ML IV (10:37)
--- NOTE | 2023-12-21 11:43 | PN.HOSP_ITS ---
Reason for Visit Reason for Visit: Diagnoses Obstruction of bile duct (12/18/23) Abnormal levels of other serum enzymes (12/18/23) Objective Data Objective Data Vital Signs: Vital Signs Temp Pulse Resp BP Pulse Ox O2 Del Method O2 Flow Rate 96.9 F L 56 L 16 137/82 H 93 Nasal Cannula 2 12/21/23 10:10 12/21/23 11:30 12/21/23 11:30 12/21/23 11:30 12/21/23 11:30 12/21/23 11:30 12/21/23 11:30 FiO2 2 12/21/23 10:15 Oxygen Flow Rate (L/min) 2 Oxygen Delivery Method Nasal Cannula Weight: 189 lb 9.561 oz Body Mass Index (BMI) 29.7 Intake & Output: Intake and Output for Last 24 Hours 12/19/23 12/20/23 12/21/23 23:59 23:59 23:59 Intake Total 5308.33 / 5308.33 4726.6 / 4726.6 4240.15 / 4240.15 Balance 5308.33 / 5308.33 4726.6 / 4726.6 4240.15 / 4240.15 Lab / Micro Data 12/21/23 19:07 12/21/23 05:43 Labs: Laboratory Results - last 24 hr 12/20/23 11:55: APTT 48.3 H 12/20/23 20:15: APTT 55.0 H 12/21/23 05:43: WBC 6.9, RBC 4.55 L, Hgb 13.7, Hct 41.1, MCV 90.3, MCH 30.1, MCHC 33.3, RDW Std Deviation 46.3 H, RDW Coeff of Nehemias 14.0, Plt Count 211, MPV 10.2, Immature Gran % (Auto) 0.700, Neut % (Auto) 72.9 H, Lymph % (Auto) 17.2 L, [place] % (Auto) 7.6, Eos % (Auto) 0.9, Baso % (Auto) 0.7, Absolute Neuts (auto) 5.0, Absolute Lymphs (auto) 1.18, Nucleated RBC % 0, Sodium 136, Potassium 3.7, Chloride 108 H, Carbon Dioxide 26.0, Anion Gap 2 L, BUN 10, Creatinine 1.00, Estim Creat Clear Calc 84.12, Est GFR (MDRD) Af Amer 99, Est GFR (MDRD) Non-Af 82, BUN/Creatinine Ratio 10.0, Glucose 123 H, Calcium 8.6, Total Bilirubin 1.20 H, Direct Bilirubin 0.72 H, AST 25, ALT 99 H, Alkaline Phosphatase 234 H, Total Protein 6.0 L, Albumin 3.0 L, Globulin 3.0 Radiography Diagnostic Testing: Radiology Impression Cholangiogram 12/21/23 07:05 IMPRESSION: Intraoperative angiogram as described above. Electronically Signed: Gianni Neumann MD at 11:05 EST , Physical Exam Narrative Seen and examined. Patient had lap ta with cholangiogram in the morning today. Estimated blood loss 20 mL. Earlier patient was admitted with 2 to 3 months of right upper quadrant pain intermittently but got worse in last 1 week. He is admitted with jaundice. No fever. Physical exam General: Alert, Oriented x3, Cooperative HEENT: Atraumatic, PERRLA, EOMI, Normocephalic. Icterus/jaundice improving. Oral: No Gingival or Mucosal Lesions/ Ulcerations Neck: Supple, No JVD, Negative Carotid Bruits Chest wall/Lungs: Air entry diminished in bilateral lung bases. No crepitation/rhonchi Cardiovascular: Regular rate, Regular Rhythm, Normal S1, Normal S2, No murmurs Abdomen: s/p lap ta. No guarding/rigidity. Bowel Sound absent, Soft, Non- Distended : No renal angle tenderness. No suprapubic tenderness. Extremities: No edema, Capillary Refill Less than 3 Seconds Skin: No rashes, No breakdown Musculoskeletal: No Tenderness to Palpation of Joints or Extremities Neurological: Cranial nerves II-XII grossly intact, DTR 2+/4. No acute focal neurological deficit. Psych/Mental Status: Normal Affect, Appropriate. Assessment & Plan Assessment/Plan (1) Biliary obstruction: PLAN: Plan The patient is a 58 y/o male came to ED with upper abdominal pain for months, elevated liver chemistry with recent CT scan suggestive of biliary ductal obstruction. Patient had labs in last several days with PCP plan was possible ERCP. CT abdomen showed contracted thick-walled gallbladder. Recent gallbladder ultrasound showed concern for biliary obstruction. #1. Abdominal pain with associated jaundice with hyperbilirubinemia and transaminitis with suspected biliary obstruction: [facility] N.p.o. for need of possible ERCP. Right upper quadrant sonogram as patient had last ultrasound about 2 3 months ago in [facility]. On PPI, IV/po pain control No leukocytosis. H&H and platelet count in normal range. INR 1.1. Total bili 2.8, with no fractionation. GGT 868, ALT 442, AST 212 improving. Alkaline phosphatase 519 . Right upper quadrant sonogram was done which shows fatty infiltration of liver, 2.2 x 2.2 x 1.9 cm hypoechoic heterogeneous nodule in medial right lobe of liver corresponding to the CT finding of segment 5, wrongly reported as Segment 8. 12/20: Liver chemistry shows improvement in total bilirubin, alkaline phosphatase and transaminases and GGT. Right upper quadrant shows gallbladder stones but no pericholecystic fluid or GB wall thickening or sonographic Shell sign. Discussed with Dr. Hardy and he agrees that he is in appropriate inpatient setting for laparoscopic cholecystectomy as patient requires bridging IV heparinization because of mechanical aortic valve. Patient not on baby aspirin/Plavix or other antiplatelet agent. Plan for n.p.o. at midnight and stop heparin drip at 2 AM and lap ta for tomorrow AM. Continue IV antibiotics Zosyn. 12/21: Discussed with the surgeon. Patient had oozing from the liver bed as we GB was very inflamed. Hemostasis was obtained with argon coagulation and hemoblast powder. GB fossa was irrigated and with no active bleeding or bile leakage was found. Will start heparin drip after 12 hours around 9 PM after repeat H&H at 7 PM. Monitor CBC BMP liver chemistry daily. Mild hypokalemia K3.4. Serum magnesium and phosphorus normal. 12/21 hypokalemia corrected: K3.7. #2. Valvular heart disease, Chart reported prior history concerning for possible endocarditis: Patient with history of bicuspid aortic valve status post AVR, mechanical 09/2004, on Coumadin which patient reports he was taking it however INR subtherapeutic therefore patient on IV heparin drip. 12/21: Please see above for heparin drip #3. Hypertension: Continue home regimen including amlodipine, atenolol, PRN hydralazine. #4. Hyperlipidemia: hold statin therapy given acute presentation. #5. Obesity: Weight loss and lifestyle changes encouraged. #6. GERD: maintain on PPI. #7. Gout: Clarifying however patient per report is not taking allopurinol. #8. History of alcohol abuse: Patient sober since 11/21/2023, encourage continued sobriety, prior heavy liquor and beer intake, will maintain on MVI, thiamine and folic acid, case management consulted. #9. Tobacco Abuse: Encouraged cessation, #10. DVT prophylaxis: INR upon ED arrival is subtherapeutic 1.0, discussed with ED staff and will immediately recheck and if this is consistent then will immediately be started on a heparin drip with a bolus per discussion with ED physician. Clinical Impression(s) from Imaging Studies Abdomen Ultrasound 12/19/23 10:26 IMPRESSION: Fatty infiltration of the liver. 2.2 cm x 2.2 cm x 1.9 cm hypoechoic heterogeneous nodule in the medial right lobe of the liver corresponds to the CT findings. This is not a typical cyst. Correlation with MRI examination is recommended. Multiple small gallstones. Charges/Coding Visit Charges Inpatient E&M: 73695 Subs Hosp L2
[2023-12-21] MEDS: Thiamine Hydrochloride 100 MG Tablet PO (12:58)
[2023-12-21] MEDS: Multivitamins,Ther W-Minerals Tablet 1 TABLET PO (12:59)
[2023-12-21] MEDS: Folic Acid 1 MG Tablet PO (12:59)
[2023-12-21] MEDS: Pantoprazole Sodium 40 MG Tablet PO (13:01)
[2023-12-21] MEDS: amLODIPine 5 MG Tablet PO ×2 (13:01→21:48)
[2023-12-21] MEDS: 0.9% Normal Saline (1000mL) 1,000 ML 40 ML IV (14:31)
[2023-12-21] MEDS: Morphine 2 MG/ML Syringe IV ×3 (15:06→21:50)
[2023-12-21] MEDS: 0.9% Saline Lock 10 ML Syringe IV (18:39)
[2023-12-21 19:15] LABS: Hematocrit 38.9 % (40-54)
[2023-12-21 21:18] LABS: Partial Thromboplast Time 31.5 Seconds (24.1-36.2)
[2023-12-21] MEDS: HEPARIN/D5w 25,000 UNITS 25,000 UNITS/250 ML IV.SOLN. 13 UNITS CONT INF (22:10)
[2023-12-22 04:36] LABS: Absolute Neutrophil Count 6.9 X10^3/uL (2.0-7.7); Basophil# 0.03 X10^3/uL; Basophil% 0.3 % (0-1); Eosinophil# 0.04 X10^3/uL; Eosinophils% 0.5 % (0-5); Hemoglobin 13.1 g/dL (13.0-16.5); Lymphocyte % 10.4 % (19-41); Mean Corp Hgb Conc 32.8 g/dL (32-36); Mean Corpuscular Hgb 29.6 pg (27.0-32.0); Mean Corpuscular Volume 90.5 fL (80-94); Mean Platelet Vol. 10.2 fl (6.2-12.0); Monocyte% 8.1 % (0-10); NRBC Flagged by Analyzer 0 % (0-5); Neutrophil # 6.92 X10^3/uL (2.7-7.7); Neutrophil % 80.2 % (47-70); Platelet Count 191 K/mm3 (150-450); RBC Distribution Width CV 13.8 % (11.6-14.6); RBC Distribution Width SD 46.3 fl (35.1-43.9); Red Blood Count 4.42 M/mm3 (4.6-6.2); White Blood Count 8.6 K/mm3 (4.4-11.0)
[2023-12-22 04:42] VITALS: BP 155/92; PULSE 70; RESP 18; TEMP 36.8; O2SAT 95
[2023-12-22 04:45] LABS: Partial Thromboplast Time 47.4 Seconds (24.1-36.2)
[2023-12-22 04:53] LABS: Prothrombin Time (Protime)PT. 13.2 SECONDS (11.7-14.9)
[2023-12-22] MEDS: Piperacil/Tazobactam 3.375 GM in 0.9% Normal Saline (50mL MB+) 50 ML IV (05:00)
[2023-12-22] MEDS: oxyCODONE 5 MG Tablet PO ×2 (05:04→09:06)
[2023-12-22] MEDS: Acetaminophen 325 MG Tablet 650 MG PO (05:05)
[2023-12-22 05:14] VITALS: BMI 29.7
[2023-12-22 06:09] LABS: Anion Gap 5 (5-15); BUN 7 mg/dL (7-18); BUN/Creat Ratio 8.3 RATIO (10-20); Chloride 105 mmol/L (98-107); Creatinine, Serum 0.85 mg/dL (0.70-1.30); EST Glomerular Filtration Rate 99 mL/min (>60); Est Glom Filt Rate - Afr Amer 120 mL/min (>60); Estimated Creatinine Clearance 98.46 ml/min; GGTP 321 U/L (15-85); Glucose 127 mg/dL (74-106); Potassium 3.8 mmol/L (3.5-5.1); Sodium Level 136 mmol/L (136-145)
[2023-12-22] MEDS: Pantoprazole Sodium 40 MG Tablet PO (08:37)
[2023-12-22] MEDS: amLODIPine 5 MG Tablet PO (08:37)
[2023-12-22] MEDS: Thiamine Hydrochloride 100 MG Tablet PO (08:37)
[2023-12-22] MEDS: Atenolol 50 MG Tablet PO (08:38)
[2023-12-22] MEDS: Folic Acid 1 MG Tablet PO (08:38)
[2023-12-22] MEDS: Multivitamins,Ther W-Minerals Tablet 1 TABLET PO (08:38)
--- NOTE | 2023-12-22 09:04 | PCM.PN.SRG ---
Subjective Subjective Patient tolerated some regular diet yesterday. He reports some mild soreness but other than that he is feeling well. Objective Data Objective Data Vital Signs: Vital Signs Temp Pulse Resp BP Pulse Ox O2 Del Method O2 Flow Rate 98.2 F 70 18 155/92 H 95 Nasal Cannula 2 12/22/23 04:42 12/22/23 04:42 12/22/23 04:42 12/22/23 04:42 12/22/23 04:42 12/22/23 04:42 12/22/23 04:42 FiO2 2 12/21/23 10:15 Oxygen Flow Rate (L/min) 2 Oxygen Delivery Method Nasal Cannula Weight: 189 lb 2.506 oz Body Mass Index (BMI) 29.7 Intake & Output: Intake and Output for Last 24 Hours 12/20/23 12/21/23 12/22/23 23:59 23:59 23:59 Intake Total 4726.6 / 4726.6 5290.15 / 5290.15 138.62 / 138.62 Output Total 350 / 350 2300 / 2300 Balance 4726.6 / 4726.6 4940.15 / 4940.15 -2161.38 / -2161.38 Lab / Micro Data 12/22/23 03:50 12/22/23 03:50 Labs: Laboratory Results - last 24 hr 12/21/23 19:07: Hgb 13.0, Hct 38.9 L 12/21/23 21:04: APTT 31.5 12/22/23 03:50: WBC 8.6, RBC 4.42 L, Hgb 13.1, Hct 40.0, MCV 90.5, MCH 29.6, MCHC 32.8, RDW Std Deviation 46.3 H, RDW Coeff of Nehemias 13.8, Plt Count 191, MPV 10.2, Immature Gran % (Auto) 0.500, Neut % (Auto) 80.2 H, Lymph % (Auto) 10.4 L, [place] % (Auto) 8.1, Eos % (Auto) 0.5, Baso % (Auto) 0.3, Absolute Neuts (auto) 6.9, Absolute Lymphs (auto) 0.90, Nucleated RBC % 0, PT 13.2, INR 1.0, APTT 47.4 H, Sodium 136, Potassium 3.8, Chloride 105, Carbon Dioxide 26.0, Anion Gap 5, BUN 7, Creatinine 0.85, Estim Creat Clear Calc 98.46, Est GFR (MDRD) Af Amer 120, Est GFR (MDRD) Non-Af 99, BUN/Creatinine Ratio 8.3 L, Glucose 127 H, Calcium 9.0, GGT 321 H Radiography Diagnostic Testing: Radiology Impression Cholangiogram 12/21/23 07:05 IMPRESSION: Intraoperative angiogram as described above. Electronically Signed: Gianni Neumann MD at 11:05 EST , Physical Exam Const oriented x3 and no apparent distress Resp normal respiratory effort GI soft to palpation and non-tender Assessment & Plan Assessment/Plan (1) Biliary obstruction: PLAN: Patient is doing well this morning. His hemoglobin is stable from yesterday evening. Okay to resume his Coumadin today. Continue heparin drip. Continue regular diet as tolerated. I have decreased his fluids due to high urine output. Andrea Hardy MD Pager: [facility] [address] [place] [address], [address] [place] [address] Office:
--- NOTE | 2023-12-22 12:04 | DCINST_ITS ---
Discharge Instructions Diet Discharge Diet: Low fat / Low cholesterol Activity Discharge Activity: May Shower Additional Activity Instructions:: Do not lift more than 15 pounds for 2 weeks Dressing / Incision Call your doctor if your incision/area has: Continuous Slow Oozing, Sudden Increased Bleeding and Increased Redness Call your doctor if you observe: Fever of 101 or Higher, Shortness of breath, Dizziness, Fainting spells, Swelling in the ankles, Chest pain and Increased palpitations (irregular heartbeat) Remove Dressing in: 2 days Follow Up Care Test Results: Test results from this visit will be discussed in further detail at your follow- up appointment, if applicable. Discharge Plan Admission Admit Date/Time: 12/18/23 19:26 Attending Provider: Adan Heredia Primary Care Provider: Fay Cardenas Consulting Providers: Kylah Dyer; Andrea Hardy; Fadi Jha Discharge Orders/Prescriptions Prescriptions: New oxycodone 5 mg Tablet 5 mg PO Q4H PRN PRN (Reason: Pain Score 4-10) 3 Days Qty: 10 0RF enoxaparin [Lovenox] 80 mg/0.8 mL syringe 80 mg subcut Q12H Qty: 8 0RF Continued atorvastatin 10 mg tablet 10 mg PO DAILY Patient Comments: not taken,supposed too amlodipine 5 mg tablet 5 mg PO BID Qty: 180 3RF pantoprazole 40 mg tablet,delayed release (DR/EC) 40 mg PO DAILY Qty: 90 1RF allopurinol 100 mg tablet See Rx Instructions .ROUTE .COMPLEX Qty: 90 3RF Dose Instruction: TAKE ONE TABLET BY MOUTH EVERY DAY Patient Comments: not taking Rx Instructions: TAKE ONE TABLET BY MOUTH EVERY DAY atenolol 50 mg tablet 50 mg PO DAILY Qty: 90 3RF warfarin 2 mg tablet 2 mg PO .COMPLEX Qty: 90 3RF Protocol: Dose Management Condition: Friday Dose/Route: 2 mg Instruction: 1 x 2 mg tablet Condition: Friday Dose/Route: 4 mg Instruction: 1 x 4 mg tablet Condition: Friday Dose/Route: 2 mg Instruction: 1 x 2 mg tablet Condition: Friday Dose/Route: 2 mg Instruction: 1 x 2 mg tablet Condition: Dose/Route: 4 mg Instruction: 1 x 4 mg tablet Condition: Friday Dose/Route: 2 mg Instruction: 1 x 2 mg tablet Condition: Friday Dose/Route: 2 mg Instruction: 1 x 2 mg tablet Protocol Text: Adjustment Start Date: 11/27/23 INR Value: 1.5 INR Date: 11/27/23 Recheck Date: 12/04/23 Rx Instructions: 2 mg orally , , , Fri, , Fri (takes a 4 mg tablet Fri); or as directed warfarin 4 mg tablet 4 mg PO .COMPLEX Qty: 90 3RF Protocol: Dose Management Condition: Friday Dose/Route: 2 mg Instruction: 1 x 2 mg tablet Condition: Friday Dose/Route: 4 mg Instruction: 1 x 4 mg tablet Condition: Friday Dose/Route: 2 mg Instruction: 1 x 2 mg tablet Condition: Friday Dose/Route: 2 mg Instruction: 1 x 2 mg tablet Condition: Dose/Route: 4 mg Instruction: 1 x 4 mg tablet Condition: Friday Dose/Route: 2 mg Instruction: 1 x 2 mg tablet Condition: Friday Dose/Route: 2 mg Instruction: 1 x 2 mg tablet Protocol Text: Adjustment Start Date: 11/27/23 INR Value: 1.5 INR Date: 11/27/23 Recheck Date: 12/04/23 Rx Instructions: 4 mg orally /Friday (takes a 2 mg tablet all other days of week): or as directed; Referrals / Follow Up: Andrea Hardy MD [Med Staff - Active Staff] - Within 2 Weeks Fay Cardenas MD [Primary Care Provider] - Within 1 Week Disposition Disposition (needs filled in before D/C Order can be placed): Home, Self Care
--- NOTE | 2023-12-22 12:54 | PHA.DC_ITS ---
Pharmacy [facility] Pharmacy Service has performed discharge medication reconciliation and counseling for this patient. The patient's discharge medication list was reviewed for discrepancies and discrepancies were resolved. The patient was counseled on the following discharge medications and changes in medications for homegoing were reviewed. The Reason for Use, instructions for use, and potential side effects were reviewed for all new medications. The patient's questions regarding all of their medications were answered. 1. Enoxaparin 80 mg SQ Q12H x 5 days 2. Oxycodone 5 mg PO Q4H PRN pain score of 4-10/10 The patient was able to verbally demonstrate an understanding of their discharge medications. Medications at Discharge Home Medications atorvastatin 10 mg tablet 10 mg PO DAILY 11/08/21 amlodipine 5 mg tablet 5 mg PO BID #180 tabs 05/20/22 pantoprazole 40 mg tablet,delayed release 40 mg PO DAILY #90 tabs 08/26/22 allopurinol 100 mg tablet See Rx Instructions .Route .COMPLEX #90 tabs 12/26/22 atenolol 50 mg tablet 50 mg PO DAILY #90 tabs 08/11/23 warfarin 2 mg tablet 2 mg PO .COMPLEX #90 tabs 11/27/23 warfarin 4 mg tablet 4 mg PO .COMPLEX #90 tabs 11/27/23 enoxaparin 80 mg/0.8 mL subcutaneous syringe (Lovenox) 80 mg (0.8 mL) subcut Q12H #8 mL 12/22/23 oxycodone 5 mg tablet 5 mg PO Q4H PRN PRN Pain Score 4-10 3 days #10 tabs 12/22/23
[2023-12-22] MEDS: Enoxaparin 80 MG/0.8 ML Syringe SC (13:12)
--- NOTE | 2023-12-22 13:17 | CASEMGMT ---
Addendum entered by Maribeth Botlon 12/22/23 13:22: Cost of lovenox is $4.50 and pt can get tomorrow. Pt has already had dose today. Pt aware of this. Original Note: RN CM into pt room, pt dressed lying in bed ready for dc, nurse in room. Pt states he has given lovenox to himself before and denies any issues with doing it again. He is aware that the RN CM will call for cost. He states it should be zero. Pt denies any homegoing needs.
--- NOTE | 2023-12-22 15:10 | DS.PCM_ITS ---
Providers Date of Admission: 12/18/23 Primary Care Physician: Dr. Fay Cardenas MD Consultations 12/18/23 20:26 Consult: Gastroenterology Routine Consulting Provider: [facility] Reason for Consult: Biliary obstruction EMERGENT Consult: No Notified: Yes Date Notified: 12/18/23 Time Notified: 19:26 Method of Notification: Verbal 12/20/23 08:16 Consult: General Surgery Routine Consulting Provider: Andrea Hardy Reason for Consult: cholelithiasis with chr cholecystitis EMERGENT Consult: No Notified: Yes Date Notified: 12/20/23 Time Notified: 08:16 Method of Notification: Verbal Reason For Visit: BILIARY OBSTRUCTIVE, HYPERBILIRUBINEMIA/ Diagnosis Discharge Diagnosis (1) Biliary obstruction: Status: Acute Code(s): K83.1 - Obstruction of bile duct Medications at Discharge Home Medications atorvastatin 10 mg tablet 10 mg PO DAILY 11/08/21 amlodipine 5 mg tablet 5 mg PO BID #180 tabs 05/20/22 pantoprazole 40 mg tablet,delayed release 40 mg PO DAILY #90 tabs 08/26/22 allopurinol 100 mg tablet See Rx Instructions .Route .COMPLEX #90 tabs 12/26/22 atenolol 50 mg tablet 50 mg PO DAILY #90 tabs 08/11/23 warfarin 2 mg tablet 2 mg PO .COMPLEX #90 tabs 11/27/23 warfarin 4 mg tablet 4 mg PO .COMPLEX #90 tabs 11/27/23 enoxaparin 80 mg/0.8 mL subcutaneous syringe (Lovenox) 80 mg (0.8 mL) subcut Q12H #8 mL 12/22/23 oxycodone 5 mg tablet 5 mg PO Q4H PRN PRN Pain Score 4-10 3 days #10 tabs 12/22/23 Hospital Course Operations cholecystecomy and ERCP Procedures None Summary of Care Provided Minutes Spent on Discharge: 36 Hospital Course: Per HPI: The patient is a 58 y/o M w/ PMHx: Obesity, Anxiety and Depression, History EtOH abuse (sober since 11/21/23, prior heavy liquor/beer intake), HTN, HLD, Hx bicuspid aortic valve s/p AVR 09/2004 on coumadin w/ Hx possible prior Endocarditis, Gout, GERD, Tobacco use who presents to the [facility] ED on 12/18/23 with history of abdominal pain gradually worsening over the last several weeks, noted to be in the RUQ only, intermittently occuring with no clear cause precipitating onset described as dull aching throb with sharp shooting severe pain as if he been punched in the gut at that location rated 10 out of 10 in severity at its worst with no nausea, emesis, diaphoresis, fever, chills although he does report 1 time he did have diarrhea with the episode but that is not normal prompting eventual PCP evaluation with abnormal outpatient labs with hyperbilirubinemia, transaminitis and CT contracted thick-walled gallbladder and recent gallbladder ultrasound reportedly with concern for biliary obstruction prompting ED referral. PCP contacted and discussed case with Dr. Gonzalez per discussion with the ED. Prior work-up in the ED CT abdomen pelvis with contrast performed earlier in the day at approximately 11 AM with us fatty infiltration of liver, small hepatic cyst, contracted thick-walled gallbladder, bladder wall thickening although bladder not completely distended. Lab workup performed 12/17/2023 with noted CBC with WBC 8.6, hemoglobin 15.9, platelet 249 without marked shift, CMP with sodium 130, potassium 3.3, chloride 96, glucose 115, T. bili 2.80, AST/ALT 212/442, alk phos 519, lipase 98, urinalysis unremarkable. ED notes GB at clinic was reported notable for biliary obstruction with no obvious concerning focal GB findings. Hospital course: 1. Acute cholecystitis with choledocholithiasis status post ERCP and cholecystectomy?58-year-old male presented to the hospital with abdominal pain consistent with cholecystitis. He was found to have hyperbilirubinemia and an LFT pattern consistent with obstruction. ERCP demonstrated choledocholithiasis and he had a successful stone retrieval. He subsequently underwent a cholecystectomy, and there was some bleeding from the liver bed though his hemoglobin was stable today at 13. He does have a history of mechanical aortic valve and is on Coumadin that is subtherapeutic currently. He was maintained on a heparin drip during his hospitalization without any significant drop in his hemoglobin and in discussion with general surgery they felt comfortable with him to be discharged today from their perspective so we will plan to bridge with therapeutic Lovenox and restart his Coumadin with outpatient monitoring and follow-up with his INR per his PCP. I discussed with him the plan for discharge she expressed understanding of the risk benefits of going home and would like to go home today. 2. Hypertension, hyperlipidemia, aortic valve replacement, GERD, gout, history of alcohol abuse, tobacco abuse are all chronic medical conditions which complicate his care. His home medications were continued where appropriate Physical Exam Narrative General: Alert, Oriented x3, Cooperative, No apparent distress HEENT: Atraumatic, PERRLA, EOMI, Normocephalic Oral: Moist Mucosa Neck: Supple, No JVD Lungs: Diminished, Normal air movement, No rhonchi, No wheeze, No rales Cardiovascular: Regular rate, Regular Rhythm, Normal S1, Normal S2, No murmurs Abdomen: Soft, slightly tender around incisions, Non-Distended, No Hepato- splenomegaly Extremities: No edema, Capillary Refill Less than 3 Seconds Skin: No rashes, No breakdown, dressing CDI Musculoskeletal: No Tenderness to Palpation of Joints or Extremities Neurological: Cranial nerves II-XII grossly intact, Motor Exam 5/5 strength throughout, Sensory exam intact to light touch and pain Psych/Mental Status: Normal Affect, Appropriate Weight / BMI Weight Weight: 189 lb 2.506 oz Body Mass Index (BMI) 29.7 ABG / Lab / Microbiology Data 12/22/23 03:50 12/22/23 03:50 Laboratory: Laboratory Results - last 24 hr 12/21/23 19:07: Hgb 13.0, Hct 38.9 L 12/21/23 21:04: APTT 31.5 12/22/23 03:50: WBC 8.6, RBC 4.42 L, Hgb 13.1, Hct 40.0, MCV 90.5, MCH 29.6, MCHC 32.8, RDW Std Deviation 46.3 H, RDW Coeff of Nehemias 13.8, Plt Count 191, MPV 10.2, Immature Gran % (Auto) 0.500, Neut % (Auto) 80.2 H, Lymph % (Auto) 10.4 L, [place] % (Auto) 8.1, Eos % (Auto) 0.5, Baso % (Auto) 0.3, Absolute Neuts (auto) 6.9, Absolute Lymphs (auto) 0.90, Nucleated RBC % 0, PT 13.2, INR 1.0, APTT 47.4 H, Sodium 136, Potassium 3.8, Chloride 105, Carbon Dioxide 26.0, Anion Gap 5, BUN 7, Creatinine 0.85, Estim Creat Clear Calc 98.46, Est GFR (MDRD) Af Amer 120, Est GFR (MDRD) Non-Af 99, BUN/Creatinine Ratio 8.3 L, Glucose 127 H, Calcium 9.0, GGT 321 H 12/22/23 10:25: APTT 55.0 H D/C Instructions Discharge Diet: Low fat / Low cholesterol Additional Activity Instructions: Do not lift more than 15 pounds for 2 weeks Call your doctor if your incision/area has: Continuous Slow Oozing, Sudden Increased Bleeding and Increased Redness Call your doctor if you observe: Fever of 101 or Higher, Shortness of breath, Dizziness, Fainting spells, Swelling in the ankles, Chest pain and Increased palpitations (irregular heartbeat) Meaningful Use Info Meaningful Use Diagnoses (Choose all that apply): None applicable Discharge Plan Admission Admit Date/Time: 12/18/23 19:26 Attending Provider: Adan Heredia Primary Care Provider: Fay Cardenas Consulting Providers: Kylah Dyer; Andrea Hardy; Fadi Jha Instructions Additional Instructions / Restrictions: Follow-up with your PCP at some point this week to obtain an INR to monitor your Coumadin levels continue with twice daily Lovenox until your Coumadin levels are therapeutic. You have been discharged on 5 days worth and may need further orders as an outpatient from your PCP if in that timeframe your INR is not therapeutic. Discharge Orders/Prescriptions Prescriptions: New oxycodone 5 mg Tablet 5 mg PO Q4H PRN PRN (Reason: Pain Score 4-10) 3 Days Qty: 10 0RF enoxaparin [Lovenox] 80 mg/0.8 mL syringe 80 mg subcut Q12H Qty: 8 0RF Continued atorvastatin 10 mg tablet 10 mg PO DAILY Patient Comments: not taken,supposed too amlodipine 5 mg tablet 5 mg PO BID Qty: 180 3RF pantoprazole 40 mg tablet,delayed release (DR/EC) 40 mg PO DAILY Qty: 90 1RF allopurinol 100 mg tablet See Rx Instructions .ROUTE .COMPLEX Qty: 90 3RF Dose Instruction: TAKE ONE TABLET BY MOUTH EVERY DAY Patient Comments: not taking Rx Instructions: TAKE ONE TABLET BY MOUTH EVERY DAY atenolol 50 mg tablet 50 mg PO DAILY Qty: 90 3RF warfarin 2 mg tablet 2 mg PO .COMPLEX Qty: 90 3RF Protocol: Dose Management Condition: Friday Dose/Route: 2 mg Instruction: 1 x 2 mg tablet Condition: Friday Dose/Route: 4 mg Instruction: 1 x 4 mg tablet Condition: Friday Dose/Route: 2 mg Instruction: 1 x 2 mg tablet Condition: Friday Dose/Route: 2 mg Instruction: 1 x 2 mg tablet Condition: Dose/Route: 4 mg Instruction: 1 x 4 mg tablet Condition: Friday Dose/Route: 2 mg Instruction: 1 x 2 mg tablet Condition: Friday Dose/Route: 2 mg Instruction: 1 x 2 mg tablet Protocol Text: Adjustment Start Date: 11/27/23 INR Value: 1.5 INR Date: 11/27/23 Recheck Date: 12/04/23 Rx Instructions: 2 mg orally , , , Fri, , Fri (takes a 4 mg tablet Fri); or as directed warfarin 4 mg tablet 4 mg PO .COMPLEX Qty: 90 3RF Protocol: Dose Management Condition: Friday Dose/Route: 2 mg Instruction: 1 x 2 mg tablet Condition: Friday Dose/Route: 4 mg Instruction: 1 x 4 mg tablet Condition: Friday Dose/Route: 2 mg Instruction: 1 x 2 mg tablet Condition: Friday Dose/Route: 2 mg Instruction: 1 x 2 mg tablet Condition: Dose/Route: 4 mg Instruction: 1 x 4 mg tablet Condition: Friday Dose/Route: 2 mg Instruction: 1 x 2 mg tablet Condition: Friday Dose/Route: 2 mg Instruction: 1 x 2 mg tablet Protocol Text: Adjustment Start Date: 11/27/23 INR Value: 1.5 INR Date: 11/27/23 Recheck Date: 12/04/23 Rx Instructions: 4 mg orally /Friday (takes a 2 mg tablet all other days of week): or as directed; Referrals / Follow Up: Andrea Hardy MD [Med Staff - Active Staff] - Within 2 Weeks Fay Cardenas MD [Primary Care Provider] - Within 1 Week Disposition Disposition (needs filled in before D/C Order can be placed): Home, Self Care Charges/Coding Visit Charges Inpatient E&M: 57615 Disch Hosp >30min
== END 2023-12-22 13:45 | disposition home or self-care (01) | DRG 419 ==
LOC: ED 19:22 → MS3 19:55
PROVIDERS: Internal Medicine; Internal Medicine Gastroenterology; Surgery; Admitting Provider Family Medicine; Emergency Provider Emergency Medicine; PCP Internal Medicine; Visit Provider Family Medicine
PROC: 0FC98ZZ Extirpation of Matter from Common Bile Duct, Via Natural or Artificial Opening Endoscopic (ICD-10-PCS; CPT 43260; principal; 2023-12-19 13:40)
PROC: 0FT44ZZ Resection of Gallbladder, Percutaneous Endoscopic Approach (ICD-10-PCS; CPT 47610; principal; 2023-12-21 09:00)
DX: K80.63 Calculus of gallbladder and bile duct with acute cholecystitis with obstruction (principal); E66.9 Obesity, unspecified; K76.0 Fatty (change of) liver, not elsewhere classified; I10 Essential (primary) hypertension; E78.2 Mixed hyperlipidemia; F17.210 Nicotine dependence, cigarettes, uncomplicated; K21.9 Gastro-esophageal reflux disease without esophagitis; Z95.2 Presence of prosthetic heart valve; Z79.01 Long term (current) use of anticoagulants; Z79.899 Other long term (current) drug therapy; Z86.59 Personal history of other mental and behavioral disorders; Z68.29 Body mass index [BMI] 29.0-29.9, adult
CPT/HCPCS: 36415; 74177; 74300; 74330; 76000; 76705; 80048; 80053; 80076; 81001; 82248; 82977; 83690; 83735; 84100; 85014; 85018; 85025; 85610; 85730; 87086; 87088; 88304; 93005; 94668; 99284; J7030; J7120; Q9967; A4216; J2405

== ENCOUNTER → 2023-12-18 | Outpatient (CLI) | payer MEDICARE, SELFPAY ==
--- NOTE | 2023-12-18 11:35 | CT_ITS ---
STUDY: CT ABDOMEN AND PELVIS WITH CONTRAST REASON FOR EXAM: Male, 58 years old. RU abdominal pain, elevated liver fn, lipase RADIATION DOSAGE (If Supplied By Facility): CTDIvol = ( 14.26 ) mGy, DLP = ( 954.97 ) mGycm TECHNIQUE: Transaxial images were obtained from the dome of the diaphragm to the symphysis pubis without oral contrast. IV 100mL Isovue-300 was administered. Sagittal and coronal images were reconstructed. Individualized dose optimization techniques were used for this CT. COMPARISON: None. FINDINGS: The visualized lung bases are unremarkable. Prosthetic aortic valve. There is decreased attenuation of the liver consistent with steatosis. There is a 2.3 cm x 2 cm cyst in the segment 8 of the right lobe of the liver. The gallbladder is contracted. There is gallbladder wall thickening. No definite gallstone is seen although correlation with ultrasound is recommended for further evaluation. Normal spleen. Normal pancreas. Normal bilateral adrenal glands. Normal right kidney. Normal left kidney. Normal visualized stomach. Normal small intestine. There are scattered colonic diverticula consistent with diverticulosis. There is a calcified appendicolith. There is scattered atherosclerotic calcification of the abdominal aorta, without a demonstrated aneurysm. Normal inferior vena cava. Normal retroperitoneum. There is thickening of the bilateral wall although the bladder is not completely distended. Normal abdominal wall. There are degenerative changes of the visualized lumbar spine. There is evidence of prior anterior fusion at the L4-L5 level. CT/Abdomen/Pelvis WITH Contrast IMPRESSION: Fatty infiltration of the liver. Small hepatic cyst. Contracted thick-walled gallbladder. Correlation with ultrasound is recommended. Bladder wall thickening although the bladder is not completely distended. Electronically Signed: Renny Wallace MD at 14:40 EST ,
== END | disposition home or self-care (01) ==
LOC: CT 11:34
PROVIDERS: PCP Internal Medicine; Referring Provider Internal Medicine; Visit Provider Internal Medicine
DX: R10.11 Right upper quadrant pain (principal)
CPT/HCPCS: 74177; Q9967

== ENCOUNTER 2023-12-29 11:11 | Outpatient (RCR) | payer MEDICARE, SELFPAY ==
[2023-12-26 10:46] LABS: INR Fingerstick 1.5; Prothrombin Time Fingerstick 16.8 SEC (11.7-14.9)
[2023-12-29 11:20] LABS: INR Fingerstick 3.5; Prothrombin Time Fingerstick 36.6 SEC (11.7-14.9)
== END 2024-01-22 18:00 | disposition home or self-care (01) ==
LOC: MTLAB 11:11
PROVIDERS: PCP Internal Medicine; Referring Provider Physician Assistant Medical; Visit Provider Physician Assistant Medical
DX: Z79.01 Long term (current) use of anticoagulants (principal); Z95.2 Presence of prosthetic heart valve
CPT/HCPCS: 36416; 85610

== ENCOUNTER → 2024-01-06 | Outpatient (CLI) | payer MEDICARE, SELFPAY ==
[2024-01-06 12:41] LABS: Absolute Lymphocyte Count 2.37 X10^3/uL (0.83-4.51); Absolute Neutrophil Count 8.1 X10^3/uL (2.0-7.7); Basophil# 0.05 X10^3/uL; Basophil% 0.4 % (0-1); Eosinophil# 0.14 X10^3/uL; Eosinophils% 1.2 % (0-5); Hematocrit 44.4 % (40-54); Hemoglobin 15.2 g/dL (13.0-16.5); Lymphocyte # 2.37 X10^3/ul (0.83-4.51); Lymphocyte % 21.1 % (19-41); Mean Corp Hgb Conc 34.2 g/dL (32-36); Mean Corpuscular Hgb 29.7 pg (27.0-32.0); Mean Corpuscular Volume 86.7 fL (80-94); Mean Platelet Vol. 10.2 fl (6.2-12.0); Monocyte# 0.51 X10^3/uL; Monocyte% 4.5 % (0-10); NRBC Flagged by Analyzer 0 % (0-5); Neutrophil # 8.12 X10^3/uL (2.7-7.7); Neutrophil % 72.4 % (47-70); Platelet Count 334 K/mm3 (150-450); RBC Distribution Width CV 13.1 % (11.6-14.6); RBC Distribution Width SD 41.4 fl (35.1-43.9); Red Blood Count 5.12 M/mm3 (4.6-6.2); White Blood Count 11.2 K/mm3 (4.4-11.0)
[2024-01-06 12:57] LABS: ALB/GLOB Ratio 1.1 RATIO (0.9-2.4); AST(SGOT) 20 U/L (15-37); Alanine Aminotransfer ALT/SGPT 22 U/L (16-61); Albumin, Serum 3.7 g/dL (3.2-5.0); Alkaline Phosphatase 126 U/L (45-117); Anion Gap 6 (5-15); BUN 15 mg/dL (7-18); BUN/Creat Ratio 10.8 RATIO (10-20); Calcium,Total 9.2 mg/dL (8.5-10.1); Chloride 103 mmol/L (98-107); Creatinine, Serum 1.39 mg/dL (0.70-1.30); EST Glomerular Filtration Rate 56 mL/min (>60); Est Glom Filt Rate - Afr Amer 68 mL/min (>60); Globulin 3.5 g/dL (2.2-4.2); Glucose 202 mg/dL (74-106); Lipase 78 U/L (13-75); Potassium 3.7 mmol/L (3.5-5.1); Protein, Total 7.2 g/dL (6.4-8.2); Sodium Level 136 mmol/L (136-145)
== END | disposition home or self-care (01) ==
LOC: LAB 11:13
PROVIDERS: PCP Internal Medicine; Referring Provider Internal Medicine; Visit Provider Internal Medicine
DX: K83.1 Obstruction of bile duct (principal); Z90.49 Acquired absence of other specified parts of digestive tract
CPT/HCPCS: 36415; 80053; 83690; 85025

== ENCOUNTER 2024-04-30 09:32 | Outpatient (RCR) | payer MEDICARE, SELFPAY ==
[2024-04-28 15:23] LABS: Hematocrit 43.7 % (40-54); Hemoglobin 14.9 g/dL (13.0-16.5); Mean Corp Hgb Conc 34.1 g/dL (32-36); Mean Corpuscular Hgb 29.5 pg (27.0-32.0); Mean Corpuscular Volume 86.5 fL (80-94); Mean Platelet Vol. 10.3 fl (6.2-12.0); Platelet Count 218 K/mm3 (150-450); RBC Distribution Width CV 12.9 % (11.6-14.6); RBC Distribution Width SD 40.3 fl (35.1-43.9); Red Blood Count 5.05 M/mm3 (4.6-6.2); White Blood Count 12.1 K/mm3 (4.4-11.0)
[2024-04-28 15:32] LABS: International Normalized Ratio 1.4; Prothrombin Time (Protime)PT. 17.2 SECONDS (11.7-14.9)
[2024-04-28 16:12] LABS: ALB/GLOB Ratio 1.2 RATIO (0.9-2.4); AST(SGOT) 61 U/L (15-37); Alanine Aminotransfer ALT/SGPT 143 U/L (16-61); Alkaline Phosphatase 95 U/L (45-117); Anion Gap 10 (5-15); BUN 11 mg/dL (7-18); BUN/Creat Ratio 9.4 RATIO (10-20); Calcium,Total 9.5 mg/dL (8.5-10.1); Chloride 99 mmol/L (98-107); Creatinine, Serum 1.17 mg/dL (0.70-1.30); EST Glomerular Filtration Rate 68 mL/min (>60); Est Glom Filt Rate - Afr Amer 82 mL/min (>60); Globulin 3.3 g/dL (2.2-4.2); Glucose 105 mg/dL (74-106); Lipase 48 U/L (13-75); Potassium 3.7 mmol/L (3.5-5.1); Protein, Total 7.3 g/dL (6.4-8.2); Sodium Level 131 mmol/L (136-145)
[2024-04-30 11:15] LABS: INR Fingerstick 2.3; Prothrombin Time Fingerstick 23.4 SEC (11.7-14.9)
== END 2024-04-30 18:00 | disposition home or self-care (01) ==
LOC: MTLAB 09:32
PROVIDERS: Internal Medicine Cardiovascular Disease; PCP Internal Medicine; Referring Provider Physician Assistant Medical; Visit Provider Physician Assistant Medical
DX: Z79.01 Long term (current) use of anticoagulants (principal); Z95.2 Presence of prosthetic heart valve; Z90.49 Acquired absence of other specified parts of digestive tract; R74.8 Abnormal levels of other serum enzymes; K83.1 Obstruction of bile duct
CPT/HCPCS: 36415; 36416; 80053; 83690; 85027; 85610

== ENCOUNTER → 2024-05-12 | Outpatient (CLI) | payer MEDICARE, SELFPAY ==
--- NOTE | 2024-05-12 14:05 | MRI_ITS ---
EXAM: MR ABDOMEN WITHOUT AND WITH INTRAVENOUS CONTRAST CLINICAL INDICATION: LFT elevation, post-ta; hx atypical liver cyst TECHNIQUE: Multiplanar and multisequence MR images of the abdomen without and with intravenous contrast. CONTRAST: IV 17 CLARISCAN COMPARISON: CT abdomen pelvis 12/18/2023, abdominal ultrasound 12/19/2023 FINDINGS: LOWER THORAX: Normal. No pleural effusion. LIVER: 2 cm lesion along the medial portion of hepatic segment 5 adjacent to the mabel hepatis demonstrates increased T1 and decreased T2 signal intensity. Lesion does not appear to significantly enhance with contrast. This may represent atypical hemangioma or hemorrhagic or proteinaceous liver cyst. Remainder of the liver parenchyma is normal. GALLBLADDER AND BILE DUCTS: Normal. No gallstones. No gallbladder distention or wall edema. No intra- or extrahepatic biliary ductal dilation. PANCREAS: Normal. No focal cystic or solid mass. SPLEEN: Mild splenomegaly. ADRENALS: Normal. No nodules. KIDNEYS AND URETERS: Normal. Normal renal size and position. No hydronephrosis. INTRAPERITONEAL SPACE: Normal. No ascites or other fluid collection. No free air. VASCULATURE: Portal vein is patent. Abdominal aorta is non-dilated. LYMPH NODES: No enlarged lymph nodes. MRI/MRI Abd WITH and W/O Contrast IMPRESSION: 1. Atypical hemangioma or hemorrhagic or proteinaceous liver cyst within hepatic segment 5. Follow-up MRI in 6 months recommended for further evaluation. 2. Mild splenomegaly. Electronically Signed: Christiano Welsh MD at 16:58 EDT ,
[2024-05-12 14:44] LABS: CREATININE FINGERSTICK 1.1 mg/dL (0.70-1.30); EGFR FINGERSTICK > 60.0000 mL/min (>60)
== END | disposition home or self-care (01) ==
LOC: MRI 13:57
PROVIDERS: PCP Internal Medicine; Referring Provider Internal Medicine; Visit Provider Internal Medicine
DX: Z01.812 Encounter for preprocedural laboratory examination (principal); R74.8 Abnormal levels of other serum enzymes; Z90.49 Acquired absence of other specified parts of digestive tract
CPT/HCPCS: 74183; A9575; A4216

== ENCOUNTER → 2024-05-19 | Outpatient (CLI) | payer MEDICARE, SELFPAY | END | disposition home or self-care (01) | LOC: LABSPEC 08:41 | PROVIDERS: PCP Internal Medicine; Referring Provider Internal Medicine; Visit Provider Internal Medicine | DX: R19.7 Diarrhea, unspecified (principal) | CPT/HCPCS: 87493 ==

== ENCOUNTER 2024-07-21 10:57 | Outpatient (RCR) | payer MEDICARE, SELFPAY ==
[2024-07-21 11:09] LABS: INR Fingerstick 1.8; Prothrombin Time Fingerstick 18.9 SEC (11.7-14.9)
== END 2024-07-21 18:00 | disposition home or self-care (01) ==
LOC: MTLAB 10:57
PROVIDERS: PCP Internal Medicine; Referring Provider Physician Assistant Medical; Visit Provider Physician Assistant Medical
DX: Z79.01 Long term (current) use of anticoagulants (principal); Z95.2 Presence of prosthetic heart valve
CPT/HCPCS: 36416; 85610

== ENCOUNTER 2024-09-19 09:49 | Emergency (ER) | payer MEDICARE, SELFPAY ==
[2024-09-19 09:52] VITALS: BP 149/87; PULSE 69; RESP 13; TEMP 36.1; O2SAT 100; BMI 26.9
--- NOTE | 2024-09-19 10:03 | EDS_ITS ---
HPI History of Present Illness Chief Complaint: Chest Pain Informant: patient Onset/Context/Timing Onset: Days (3) Activity at onset: gradual Timing: Waxes and wanes Quality: Positive for Tightness Location: Left Parasternal, Left Chest and - (Left arm) Worsened By: Nothing Relieved By: Nothing Associated Symptoms: Positive for Nausea, Vomiting and Lightheadedness; Negative for Diaphoresis, Dyspnea, Cough, Fever, Acid Reflux or Palpitations Narrative Narrative: Patient presents with chest pain that has been waxing and waning over the last 3 days. Patient describes it as a tightness. Patient states it is over the left parasternal area, left chest, and left arm. Patient states nothing makes it worse and nothing makes it better. Patient states he did have 1 episode of nausea and vomiting. Patient admits to occasional lightheadedness. Patient denies any shortness of breath or cough. Patient denies any fevers or chills. Patient has a history of mechanical heart valve. CVD Risk Factors: Positive for Hypertension and Smoking; Negative for Diabetes, Hypercholesterolemia or Family History 1' </=55 PE Risk Factors: Negative for Recent Travel/Surgery, Recent Immobilization, Prior DVT or PE, Cancer or OCP + Smoking + >/=35 PFSH PFSH Medical History (Updated 09/19/24 @ 12:[address] 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 History of bicuspid aortic valve Essential hypertension Herniated intervertebral disc of lumbar spine Smoker GERD (gastroesophageal reflux disease) Hypertension Home Medications ?Medication ?Instructions ?Recorded ?Last Taken ?Type amlodipine 5 mg tablet 5 mg PO BID #180 tabs 05/20/22 Unknown Rx allopurinol 100 mg tablet See Rx Instructions .Route 02/11/24 Unknown Rx .COMPLEX #90 tabs atenolol 50 mg tablet 50 mg PO DAILY #90 tabs 02/16/24 Unknown Rx warfarin 2 mg tablet 2 mg PO .COMPLEX #90 tabs 03/10/24 Unknown Rx warfarin 4 mg tablet 4 mg PO .COMPLEX #90 tabs 03/10/24 Unknown Rx pantoprazole 40 mg tablet,delayed 40 mg PO DAILY #90 tabs 08/20/24 Unknown Rx release Allergy/AdvReac Type Severity Reaction Status Date / Time No Known Allergies Allergy Verified 08/04/24 09:00 Family History Grandfather CHF (congestive heart failure) Mother Migraines Father Lung cancer COPD (chronic obstructive pulmonary disease) Surgical History (Updated 09/19/24 @ 10:[address] Davide Soliz DO) History of lumbar fusion Hx of fusion of cervical spine History of carpal tunnel surgery of right wrist History of carpal tunnel surgery of left wrist Status post cholecystectomy History of mechanical aortic valve replacement (~09/26/04) History of tonsillectomy and adenoidectomy Mechanical heart valve present Social History household members: none Smoking Status: Current every day smoker tobacco type: cigarettes alcohol intake: former details: Sober since 11/21/23, prior heavy beer/liquor intake. substance use type: does not use caffeine: Yes Type: coffee Number of servings: 6 ROS ROS ED Constitutional Constitutional ED: Denies chills or fever(s) Eyes Eyes: Denies blurry vision or change in vision ENT ENT ED: Denies rhinorrhea or sore throat Cardiovascular Cardiovascular: Reports chest pain; Denies palpitations Respiratory/Chest Respiratory/Chest: Denies cough or dyspnea Gastrointestinal Gastrointestinal: Reports nausea and vomiting Genitourinary Genitourinary ED: Denies dysuria or hematuria Musculoskeletal Musculoskeletal: Reports back pain; Denies neck pain Integumentary Denies abscess or rash Neurologic Neurologic: Denies headache(s) or weakness Allergic/Immunologic Allergic/Immunologic ED: Denies mouth swelling or urticaria EXAM Physical Exam Const Vital Signs: 09/19/24 09:52 09/19/24 09:57 09/19/24 10:38 Temperature 97.0 F L Temperature Source Temporal Pulse Rate 69 Respiratory Rate 13 Respiratory Effort Normal Non-Labored Blood Pressure 149/87 H Blood Pressure Mean 107 Pulse Ox 100 Oxygen Delivery Method Nasal Cannula Room Air Oxygen Flow Rate (L/min) 2 09/19/24 10:40 09/19/24 11:00 Temperature Temperature Source Pulse Rate 63 62 Respiratory Rate 13 20 H Respiratory Effort Blood Pressure 122/76 H 134/75 H Blood Pressure Mean 91 94 Pulse Ox 100 99 Oxygen Delivery Method Room Air Room Air Oxygen Flow Rate (L/min) Positive well nourished and well developed General Appearance ED: well developed and NAD HEENT Reports moist mucous membranes Neck supple and no JVD Resp normal respiratory effort and clear to auscultation bilaterally Cardio regular rate and regular rhythm GI soft to palpation, non-tender and non-distended Extremity normal to inspection General Extremety ED: Negative for edema or tenderness General Extremity: Negative for edema Neuro oriented x3, CN's II-XII intact bilaterally and no sensory deficits noted Sensorium / Orientation: awake and alert Motor Exam: strength 5/5 throughout Psych mental status grossly normal Heart Score History: Moderately Suspicious ECG: Normal Age: >45 - <65 years Risk Factors: 1 or 2 Risk Factors Troponin: </= Normal Limit Score: 3 MDM MDM MDM Narrative Medical decision making narrative: Differential diagnose includes cardiac dysrhythmia, cardiac ischemia, pneumonia, pneumothorax, electrolyte abnormality, GERD, coagulopathy, and anxiety. EKG will be obtained to assess for cardiac dysrhythmia and cardiac ischemia. Chest x-ray will be obtained to assess for pneumonia and pneumothorax. CBC will be obtained to assess for leukocytosis and anemia. Basic metabolic profile will be obtained to assess for electrolyte abnormality and renal function. High- sensitivity troponin will be obtained to assess for cardiac ischemia. PT with INR and PTT will be obtained to assess for coagulopathy. Lab Data Attestation: I reviewed the patient's lab results. Lab results narrative: CBC was reviewed. There is a mild leukocytosis of 16.1. The remainder was within normal limits. Basic metabolic profile was reviewed. Potassium was slightly low at 3.3. Sodium was 133 and chloride was 97. Glucose was slightly elevated at 166. High-sensitivity troponin was reviewed and was normal at 4. Labs: Laboratory Results - last 24 hr 09/19/24 09:50 WBC 16.1 H RBC 5.58 Hgb 17.1 H Hct 49.4 MCV 88.5 MCH 30.6 MCHC 34.6 RDW Std Deviation 43.0 RDW Coeff of Nehemias 13.2 Plt Count 275 MPV 10.3 Immature Gran % (Auto) 0.600 Neut % (Auto) 86.6 H Lymph % (Auto) 7.4 L [place] % (Auto) 4.8 Eos % (Auto) 0.2 Baso % (Auto) 0.4 Absolute Neuts (auto) 14.0 H Absolute Lymphs (auto) 1.20 Nucleated RBC % 0 PT 28.8 H INR 2.7 APTT 47.8 H Sodium 133 L Potassium 3.3 L Chloride 97 L Carbon Dioxide 28.0 Anion Gap 8 BUN 14 Creatinine 1.30 Estim Creat Clear Calc 57.91 Est GFR (MDRD) Af Amer 73 Est GFR (MDRD) Non-Af 60 BUN/Creatinine Ratio 10.8 Glucose 166 H Calcium 9.2 Troponin I High Sens 4 Radiography Chest X-Ray - ED: 1 View, Read by ED Physician, Read by Radiologist and No Acute Disease Diagnostic Testing: Clinical Impression(s) from Imaging Studies Chest X-Ray 09/19/24 10:40 IMPRESSION: No active pulmonary disease. Electronically Signed: Gianni Neumann MD at 11:36 EDT , Portable 1 view chest x-ray was obtained. On my independent interpretation, lung jacome are clear. There is normal cardiac silhouette. Bony thorax is normal. There is no acute process noted. Radiologist also interpreted the x- ray and agrees. EKG Initial EKG: Attestation: I personally reviewed and interpreted this EKG as follows: Interpretation: Sinus Rhythm (79) and No Acute Injury Pattern Comments: EKG was obtained. On my independent interpretation, it showed a normal sinus rhythm with a rate of 79. RI interval, QRS interval, and QTc intervals were all normal. Crooks was normal. There are no acute ST or T wave changes. Prior EKG tracings: available for review Prior: Unchanged (12/19/2023) Treatment and Re-Evaluation :: Patient was given aspirin. Patient is feeling better on reevaluation. Patient was advised of his findings. Patient has a HEART score of 3. Patient was advised that this is low risk for acute cardiac event. Patient was instructed to follow-up with his primary care physician in 5 to 7 days for further evaluation. Patient was instructed to return if worse in any way. Patient understood and was agreeable with the plan. All questions were answered. Discharge Plan Triage Chief Complaint: Chest Pain ED Provider: Davide Soliz Dx/Rx/DC Orders Clinical Impression: Chest pain, Essential hypertension, Tobacco use disorder Instructions: ED Chest Pain, Uncertain Cause Prescriptions: No Action amlodipine 5 mg tablet 5 mg PO BID Qty: 180 3RF allopurinol 100 mg tablet See Rx Instructions .ROUTE .COMPLEX Qty: 90 3RF Dose Instruction: TAKE ONE TABLET BY MOUTH EVERY DAY Patient Comments: not taking Rx Instructions: TAKE ONE TABLET BY MOUTH EVERY DAY atenolol 50 mg tablet 50 mg PO DAILY Qty: 90 0RF warfarin 2 mg tablet 2 mg PO .COMPLEX Qty: 90 3RF Protocol: Dose Management Condition: Friday Dose/Route: 4 mg Instruction: 1 x 4 mg tablet Condition: Friday Dose/Route: 2 mg Instruction: 1 x 2 mg tablet Condition: Friday Dose/Route: 2 mg Instruction: 1 x 2 mg tablet Condition: Friday Dose/Route: 8 mg Instruction: 2 x 4 mg tablets Condition: Dose/Route: 2 mg Instruction: 1 x 2 mg tablet Condition: Friday Dose/Route: 2 mg Instruction: 1 x 2 mg tablet Condition: Friday Dose/Route: 4 mg Instruction: 1 x 4 mg tablet Protocol Text: Adjustment Start Date: Friday07/21/24 INR Value: 1.8 INR Date: 07/21/24 Recheck Date: 07/28/24 Rx Instructions: 2 mg orally , , , Fri, , Fri (takes a 4 mg tablet Fri); or as directed warfarin 4 mg tablet 4 mg PO .COMPLEX Qty: 90 3RF Protocol: Dose Management Condition: Friday Dose/Route: 4 mg Instruction: 1 x 4 mg tablet Condition: Friday Dose/Route: 2 mg Instruction: 1 x 2 mg tablet Condition: Friday Dose/Route: 2 mg Instruction: 1 x 2 mg tablet Condition: Friday Dose/Route: 8 mg Instruction: 2 x 4 mg tablets Condition: Dose/Route: 2 mg Instruction: 1 x 2 mg tablet Condition: Friday Dose/Route: 2 mg Instruction: 1 x 2 mg tablet Condition: Friday Dose/Route: 4 mg Instruction: 1 x 4 mg tablet Protocol Text: Adjustment Start Date: Friday07/21/24 INR Value: 1.8 INR Date: 07/21/24 Recheck Date: 07/28/24 Rx Instructions: 4 mg orally /Friday (takes a 2 mg tablet all other days of week): or as directed; pantoprazole 40 mg tablet,delayed release (DR/EC) 40 mg PO DAILY Qty: 90 1RF Primary Care Provider: Fay Cardenas Referrals: Fay Cardenas MD [Primary Care Provider] - 5-7 Days Print Language: [place] Disposition Disposition: Home, Self Care
--- NOTE | 2024-09-19 10:32 | EKG12_ITS ---
Test Reason : CP Blood Pressure : / mmHG Vent. Rate : 079 BPM Atrial Rate : 079 BPM P-R Int : 162 ms QRS Dur : 086 ms QT Int : 390 ms P-R-T Axes : 007 -25 056 degrees QTc Int : 447 ms Normal sinus rhythm Normal ECG Confirmed by CHRISTINA MONTILLA, ANGELINE ([id number]), assignment editor KEKE SANCHEZ ([id number]) on 09/21/2024 7:49:28 AM Referred By: MONROE/RONA Confirmed By:ANGELINE VASQUEZ MD
[2024-09-19] MEDS: Aspirin 81 MG TAB.CHEW 324 MG PO (10:38)
[2024-09-19 10:40] VITALS: BP 122/76; PULSE 63; RESP 13; O2SAT 100
--- NOTE | 2024-09-19 10:40 | RAD_ITS ---
INDICATION: chest pain EXAMINATION/TECHNIQUE: X-RAY - XR Chest 1 View COMPARISON: Prior study dated: 01/01/2022 FINDINGS: LINES/DEVICES: None. LUNGS: No consolidation, edema or effusion. No pneumothorax. MEDIASTINUM AND CARDIOVASCULAR STRUCTURES: Normal cardiac silhouette. Status post median sternotomy and valve replacement. BONES AND SOFT TISSUES: Anterior fusion of the cervical spine with plates and screws. RAD/Chest 1 View (Portable) IMPRESSION: No active pulmonary disease. Electronically Signed: Gianni Neumann MD at 11:36 EDT ,
[2024-09-19 10:52] LABS: Basophil# 0.06 X10^3/uL; Basophil% 0.4 % (0-1); Eosinophil# 0.03 X10^3/uL; Eosinophils% 0.2 % (0-5); Hematocrit 49.4 % (40-54); Hemoglobin 17.1 g/dL (13.0-16.5); Lymphocyte % 7.4 % (19-41); Mean Corp Hgb Conc 34.6 g/dL (32-36); Mean Corpuscular Hgb 30.6 pg (27.0-32.0); Mean Corpuscular Volume 88.5 fL (80-94); Mean Platelet Vol. 10.3 fl (6.2-12.0); Monocyte# 0.78 X10^3/uL; Monocyte% 4.8 % (0-10); NRBC Flagged by Analyzer 0 % (0-5); Neutrophil # 13.97 X10^3/uL (2.7-7.7); Neutrophil % 86.6 % (47-70); Platelet Count 275 K/mm3 (150-450); RBC Distribution Width CV 13.2 % (11.6-14.6); Red Blood Count 5.58 M/mm3 (4.6-6.2); White Blood Count 16.1 K/mm3 (4.4-11.0)
[2024-09-19 10:58] LABS: Anion Gap 8 (5-15); BUN 14 mg/dL (7-18); BUN/Creat Ratio 10.8 RATIO (10-20); Calcium,Total 9.2 mg/dL (8.5-10.1); Chloride 97 mmol/L (98-107); EST Glomerular Filtration Rate 60 mL/min (>60); Est Glom Filt Rate - Afr Amer 73 mL/min (>60); Estimated Creatinine Clearance 57.91 ml/min; Glucose 166 mg/dL (74-106); Potassium 3.3 mmol/L (3.5-5.1); Sodium Level 133 mmol/L (136-145); Troponin-I HS 4 pg/mL (3.0-78.0)
[2024-09-19 11:00] VITALS: BP 134/75; PULSE 62; RESP 20; O2SAT 99
[2024-09-19 11:05] LABS: International Normalized Ratio 2.7; Prothrombin Time (Protime)PT. 28.8 SECONDS (11.7-14.9)
[2024-09-19 11:06] LABS: Partial Thromboplast Time 47.8 Seconds (24.1-36.2)
[2024-09-19] MEDS: Potassium Chloride Oral Tablet 20 MEQ 40 MEQ PO (11:22)
[2024-09-19 12:15] VITALS: BP 123/77; PULSE 59; RESP 10; TEMP 36.7; O2SAT 100
== END 2024-09-19 12:17 | disposition home or self-care (01) ==
PROVIDERS: Emergency Provider Emergency Medicine; PCP Internal Medicine; Visit Provider Emergency Medicine
DX: R07.9 Chest pain, unspecified (principal); I10 Essential (primary) hypertension; F17.210 Nicotine dependence, cigarettes, uncomplicated
CPT/HCPCS: 71045; 80048; 84484; 85025; 85610; 85730; 93005; 99283; A4216

== ENCOUNTER → 2024-10-13 | Outpatient (CLI) | payer MEDICARE, SELFPAY ==
--- NOTE | 2024-10-13 12:44 | ECHOD_ITS ---
Reason For Study: AORTIC VALVE REPLACEMENT Procedure This was a 2D Doppler, Color Flow transthoracic echocardiogram. Exam performed in department. Left Ventricle Normal LV size. The left ventricular ejection fraction is 60 %. Normal diastology for age. No regional wall motion abnormalities noted. Right Ventricle Normal RV size. Normal systolic function. Atria Normal left atrium. Normal right atrium. Mitral Valve There is moderate mitral annular calcification. Tricuspid Valve Normal tricuspid valve. Mild tricuspid valve insufficiency. Pulmonary artery systolic pressure is 28 mmHg. Aortic Valve Normal prosthetic aortic valve. Small echodense subaortic valvular appearance lesion suggestive of a healed vegetation. Pulmonic Valve Normal pulmonic valve. Great Vessels Normal aortic root. The pulmonary artery is normal size. Inferior vena cava collapse with respiration. Pericardium/Pleural No pericardial effusion. MMode/2D Measurements & Calculations LVIDd: 4.6 cm IVSd: 1.3 cm LVOT diam: 2.1 cm LVIDs: 2.7 cm LVPWd: 1.0 cm LVOT area: 3.4 cm2 RVDd: 3.4 cm FS: 41.1 % asc Aorta Diam: 3.2 cm LAV(MOD-bp): 45.6 ml LVAd ap4: 25.4 cm2 LAV(MOD-bp) Indexed: 24.6 ml/m2 LVLd ap4: 7.1 cm LAV(MOD-sp2): 57.5 ml EDV(MOD-sp4): 74.2 ml LAV(MOD-sp4): 32.1 ml EDV(sp4-el): 76.9 ml LVAs ap4: 14.4 cm2 LVLs ap4: 5.9 cm ESV(MOD-sp4): 31.0 ml ESV(sp4-el): 29.8 ml EF(MOD-sp4): 58.2 % EF(sp4-el): 61.2 % LVAd ap2: 23.3 cm2 SV(MOD-sp4): 43.2 ml SV(MOD-sp2): 41.4 ml LVLd ap2: 7.2 cm SI(MOD-sp4): 23.3 ml/m2 SI(MOD-sp2): 22.4 ml/m2 EDV(MOD-sp2): 62.1 ml EDV(sp2-el): 63.9 ml LVAs ap2: 11.5 cm2 LVLs ap2: 5.7 cm ESV(MOD-sp2): 20.7 ml ESV(sp2-el): 19.9 ml EF(MOD-sp2): 66.6 % SV(sp4-el): 47.1 ml Ao sinus diam: 4.[address] Junction: 3.1 cm LA dimension(2D): 3.6 cm LA A4 area: 14.5 cm2 RA A4 area: 12.5 cm2 TAPSE: 1.5 cm Time Measurements MV dec time: 0.25 sec Doppler Measurements & Calculations MV E max champ: 94.6 cm/sec Lat Peak E' Champ: 10.7 cm/sec Med Peak E' Champ: 7.3 cm/sec MV A max champ: 79.3 cm/sec E/E' lat: 8.9 E/E' med: 13.0 MV E/A: 1.2 MV dec slope: 380.8 cm/sec2 Ao V2 max: 212.8 cm/sec LV V1 max: 132.0 cm/sec Ao max P.1 mmHg LV V1 max P.0 mmHg Ao V2 mean: 147.5 cm/sec LV V1 mean P.5 mmHg Ao mean P.6 mmHg LV V1 mean: 103.1 cm/sec Ao V2 VTI: 44.0 cm LV V1 VTI: 31.2 cm AV (velocity ratio): 0.71 KYLE(I,D): 2.4 cm2 KYLE(V,D): 2.1 cm2 SV(LVOT): 104.7 ml PA V2 max: 98.6 cm/sec TR max champ: 242.7 cm/sec TR max P.6 mmHg ECHO/Echo Complete Interpretation Summary Normal LV size. The left ventricular ejection fraction is 60 %. Pulmonary artery systolic pressure is 28 mmHg. Small echodense subaortic valvular appearance lesion suggestive of a healed veg etation. Ordering Physician: Gabriel Roach Referring Physician: Fay Cardenas M.D. Performed By: Shelli Mason RDCS
== END | disposition home or self-care (01) ==
LOC: CVS 12:43
PROVIDERS: PCP Internal Medicine; Referring Provider Nurse Practitioner Family; Visit Provider Nurse Practitioner Family
DX: Z95.2 Presence of prosthetic heart valve (principal); R07.9 Chest pain, unspecified; I10 Essential (primary) hypertension; E78.2 Mixed hyperlipidemia
CPT/HCPCS: 93306

== ENCOUNTER 2025-01-17 09:29 | Outpatient (RCR) | payer MEDICARE, SELFPAY ==
[2025-01-14 11:07] LABS: INR Fingerstick 5.2; Prothrombin Time Fingerstick 50.1 SEC (11.7-14.9)
[2025-01-14 13:02] LABS: International Normalized Ratio 4.9
[2025-01-17 09:38] LABS: INR Fingerstick 2.8; Prothrombin Time Fingerstick 29.2 SEC (11.7-14.9)
== END 2025-01-21 18:00 | disposition home or self-care (01) ==
LOC: MTLAB 09:29
PROVIDERS: PCP Internal Medicine; Referring Provider Internal Medicine Cardiovascular Disease; Visit Provider Internal Medicine Cardiovascular Disease
DX: Z79.01 Long term (current) use of anticoagulants (principal); Z95.2 Presence of prosthetic heart valve
CPT/HCPCS: 36415; 36416; 85610

== ENCOUNTER 2025-02-16 10:15 | Outpatient (RCR) | payer MEDICARE, SELFPAY ==
[2025-02-16 10:45] LABS: INR Fingerstick 2.7; Prothrombin Time Fingerstick 28.1 SEC (11.7-14.9)
[2025-02-16 17:03] LABS: ALB/GLOB Ratio 1.7 RATIO (0.9-2.4); AST(SGOT) 32 U/L (<=37); Alanine Aminotransfer ALT/SGPT 14 U/L (<=46); Albumin, Serum 4.5 g/dL (3.5-5.0); Alkaline Phosphatase 88 U/L (40-129); Anion Gap 12 (5-15); BUN 9 mg/dL (4-19); BUN/Creat Ratio 9.4 RATIO (10-20); Calcium,Total 9.7 mg/dL (7.6-11.0); Carbon Dioxide 23.8 mmol/L (21.0-32.0); Chloride 104 mmol/L (98-108); Creatinine, Serum 0.99 mg/dL (0.70-1.20); EST Glomerular Filtration Rate 88 (>60); Free T3 2.7 pg/mL (2.18-3.98); Globulin 2.6 g/dL (2.2-4.2); Glucose 117 mg/dL (70-99); Potassium 4.2 mmol/L (3.3-5.1); Protein, Total 7.1 g/dL (5.9-8.4); Sodium Level 140 mmol/L (133-145); Vitamin D,25 Hydroxy 16.3 ng/mL (30-100)
== END 2025-02-16 18:00 | disposition home or self-care (01) ==
LOC: MTLAB 10:15
PROVIDERS: PCP Internal Medicine; Referring Provider Internal Medicine Cardiovascular Disease; Visit Provider Internal Medicine Cardiovascular Disease
DX: I10 Essential (primary) hypertension (principal); F41.9 Anxiety disorder, unspecified; E55.9 Vitamin D deficiency, unspecified; Z95.2 Presence of prosthetic heart valve; Z79.01 Long term (current) use of anticoagulants
CPT/HCPCS: 36415; 36416; 80053; 82306; 84439; 84443; 84481; 85610

== ENCOUNTER → 2025-02-18 | Outpatient (CLI) | payer MEDICARE, SELFPAY | END | disposition home or self-care (01) | LOC: MTLAB 10:30 | PROVIDERS: PCP Internal Medicine; Referring Provider Internal Medicine; Visit Provider Internal Medicine | DX: R73.9 Hyperglycemia, unspecified (principal) | CPT/HCPCS: 36415; 83036 ==

== ENCOUNTER 2025-05-06 11:25 | Outpatient (RCR) | payer MEDICARE, SELFPAY ==
[2025-05-06 15:26] LABS: Prothrombin Time (Protime)PT. 23.5 SECONDS (11.7-14.9)
== END 2025-05-06 18:00 | disposition home or self-care (01) ==
LOC: MTLAB 11:25
PROVIDERS: PCP Internal Medicine; Referring Provider Internal Medicine Cardiovascular Disease; Visit Provider Internal Medicine Cardiovascular Disease
DX: Z79.01 Long term (current) use of anticoagulants (principal)
CPT/HCPCS: 36415; 85610